=== PATIENT | male | born 1965 | race African-American/Black ===

== ENCOUNTER 2018-03-24 13:29 | Emergency (ER) | payer OTHER ==
[2018-03-24 14:10] LABS: Protime INR 1.07
[2018-03-24 14:12] LABS: Absolute Lymphocytes (CBC) 1.8 K/uL (0.7-4.9); Absolute Monocytes 0.6 K/uL (0.1-1.3); Absolute Neutrophil 2.4 K/uL (1.8-8.0); Basophils % 0.7 % (0-1.3); Eosinophils % 3.6 % (0-4.4); Hematocrit 44.8 % (39.6-49.0); Lymphocytes % 35.6 % (15.3-44.8); MCH 28.5 pg (27.0-35.0); MCV 86.9 fL (80-100); MPV 11.1 fL (7.6-11.3); Monocytes % 12.6 % (3.3-12.3); RBC Red Blood Cell Count 5.15 M/uL (4.33-5.43)
[2018-03-24 14:21] LABS: Potassium 3.9 mEq/L (3.6-5.0)
[2018-03-24 14:27] LABS: Albumin 4.1 g/dL (3.2-5.5); Bilirubin Direct 0.1 mg/dL (0-0.2); Bilirubin Total 0.8 mg/dL (0.3-1.2); Magnesium 2.3 mg/dL (1.8-2.5); Protein, Total 7.9 g/dL (6.0-8.3)
--- NOTE | 2018-03-24 14:41 | RAD REPORT ---
EXAM DESCRIPTION: RAD - Chest Single View - 03/24/2018 2:11 pm CLINICAL HISTORY: Chest pain COMPARISON: June 2015 TECHNIQUE: AP portable chest image was obtained 1359 hours . FINDINGS: Lungs are clear. Heart and vasculature are normal. No measurable pleural effusion and no p neumothorax. No gross bony abnormality seen. No acute aortic findings suspected. IMPRESSION: No acute cardiopulmonary process.
--- NOTE | 2018-03-24 15:17 | RAD REPORT ---
EXAM DESCRIPTION: CT - Chest For Pe Angio - 03/24/2018 3:00 pm CLINICAL HISTORY: Chest pain, pain between shoulder blades COMPARISON: Chest films same date TECHNIQUE: Dynamically enhanced 3 mm thick images of the chest were obtained during administration o f approximately 150mL Isovue 370 IV contrast. Coronal and oblique reconstruction images were generate d and reviewed. Exam utilizes a protocol to evaluate the pulmonary arterial tree. All CT scans are performed using dose optimization technique as appropriate and may include automated exposure control or mA/KV adjustment according to patient size. FINDINGS: No pulmonary emboli are identified. The aorta as imaged shows no acute or suspicious finding. No pericardial thickening or effusion. No infiltrate or mass in the lung parenchyma. No pleural effusion or pleural thickening. No mediastinal or hilar suspicious masses. No chest wall masses or abnormal axillary lymphadenopathy. IMPRESSION: No pulmonary emboli identified. No other significant or suspicious findings.
[2018-03-24] MEDS ORDERED: cloNIDine HCl 0.1 MG TAB ONE (15:38)
--- NOTE | 2018-03-24 17:21 | EDPHYS ---
Physician Documentation [facility] Name: Nick Castro Age: 52 yrs Sex: Male : 1965 Arrival Date: 03/24/2018 Time: 13:33 Bed 7 Private MD: ED Physician Rey Gonzales HPI: 03/24 14:05 This 52 yrs old Black Male presents to ER via Ambulatory with complaints of Chest Pain jr8 > 30 y/o, Back Pain. 14:05 The patient or guardian reports chest pain that is located primarily in the anterior jr8 chest wall, left. Onset: acutely, 5 day(s) ago. The pain radiates to left back. Associated signs and symptoms: The patient has no apparent associated signs or symptoms. The chest pain is described as sharp, stabbing. Duration: The patient or guardian reports multiple episodes. Modifying factors: The symptoms are alleviated by leaning forward. the symptoms are aggravated by breathing, laying back. 14:05 It is unknown whether or not the patient has had similar symptoms in the past. The jr8 patient has not recently seen a physician. History of PE in past. Stated that pain kind of feels like what he has had in the past with his pulmonary embolus . Historical: - Allergies: 13:37 No Known Allergies; aa5 - Home Meds: 14:18 amlodipine 10 mg tab 1 tab once daily [Active]; aspirin 81 mg Oral TbEC 1 tab once rv daily [Active]; cetirizine 10 mg oral tab 1 tab as needed for allergies [Active]; cholecalciferol (vitamin D3) 1,000 unit oral cap daily [Active]; citalopram 40 mg tab 1 tab once daily [Active]; clobetasol 0.05 % Topical crea [Active]; Combivent 18-103 mcg/actuation Inhl aero 2 puffs 4 times per day [Active]; cyclobenzaprine 10 mg Oral tab 1 tab 3 times per day [Active]; hydrocodone-acetaminophen 5-325 mg Oral tab 1 tab four times a day [Active]; omeprazole 20 mg Oral cpDR 1 cap 2 times per day [Active]; vardenafil oral oral .5 tab [Active]; hydrochlorothiazide Oral [Active]; niacin 500 mg Oral tab [Active]; potassium chloride 10 mEq Oral cpER 1 cap once daily [Active]; Xarelto 20 mg oral tab 1 tab once daily [Active]; - PMHx: 13:41 AAA; CHF; Diabetes - NIDDM; High Cholesterol; Hypertension; PE; PTSD; aa5 - PSHx: 13:41 Hernia repair; Foot surgery; R Radius repair x9; aa5 - Immunization history:: Adult Immunizations up to date. - Social history:: Smoking status: Patient/guardian denies using tobacco. ROS: 14:05 Eyes: Negative for injury, pain, redness, and discharge, ENT: Negative for injury, jr8 pain, and discharge, Neck: Negative for injury, pain, and swelling, Respiratory: Negative for shortness of breath, cough, wheezing, and pleuritic chest pain, Abdomen/GI: Negative for abdominal pain, nausea, vomiting, diarrhea, and constipation, Back: Negative for injury and pain, MS/Extremity: Negative for injury and deformity, Skin: Negative for injury, rash, and discoloration, Neuro: Negative for headache, weakness, numbness, tingling, and seizure. 14:05 Cardiovascular: Positive for chest pain, Negative for edema, orthopnea, palpitations, paroxysmal nocturnal dyspnea. Exam: 14:05 Eyes: Pupils equal round and reactive to light, extra-ocular motions intact. Lids and jr8 lashes normal. Conjunctiva and sclera are non-icteric and not injected. Cornea within normal limits. Periorbital areas with no swelling, redness, or edema. ENT: Nares patent. No nasal discharge, no septal abnormalities noted. Tympanic membranes are normal and external auditory canals are clear. Oropharynx with no redness, swelling, or masses, exudates, or evidence of obstruction, uvula midline. Mucous membranes moist. Neck: Trachea midline, no thyromegaly or masses palpated, and no cervical lymphadenopathy. Supple, full range of motion without nuchal rigidity, or vertebral point tenderness. No Meningismus. Chest/axilla: Normal chest wall appearance and motion. Nontender with no deformity. No lesions are appreciated. Cardiovascular: Regular rate and rhythm with a normal S1 and S2. No gallops, murmurs, or rubs. Normal PMI, no JVD. No pulse deficits. Respiratory: Lungs have equal breath sounds bilaterally, clear to auscultation and percussion. No rales, rhonchi or wheezes noted. No increased work of breathing, no retractions or nasal flaring. Abdomen/GI: Soft, non-tender, with normal bowel sounds. No distension or tympany. No guarding or rebound. No evidence of tenderness throughout. Back: No spinal tenderness. No costovertebral tenderness. Full range of motion. Skin: Warm, dry with normal turgor. Normal color with no rashes, no lesions, and no evidence of cellulitis. MS/ Extremity: Pulses equal, no cyanosis. Neurovascular intact. Full, normal range of motion. Neuro: Awake and alert, GCS 15, oriented to person, place, time, and situation. Cranial nerves II-XII grossly intact. Motor strength 5/5 in all extremities. Sensory grossly intact. Cerebellar exam normal. Normal gait. Vital Signs: 13:40 Weight 112.49 kg (R); Height 5 ft. 10 in. (177.80 cm) (R); Pain 9/10; aa5 13:51 BP 164 / 116; Pulse 81; Resp 12; Temp 98.4(O); Pulse Ox 97% on R/A; ae1 14:15 BP 167 / 122; Pulse 74; Resp 13; Pulse Ox 98% on R/A; ae1 15:23 BP 175 / 119; Pulse 70; Resp 15; Pulse Ox 96% on R/A; ae1 16:09 BP 168 / 124; Pulse 67; Resp 16; Pulse Ox 98% on R/A; ae1 16:24 BP 154 / 119; Pulse 75; Resp 16; Pulse Ox 95% on R/A; ae1 17:07 BP 142 / 108; Pulse 68; Resp 19 S; Pulse Ox 97% on R/A; ae1 13:40 Body Mass Index 35.58 (112.49 kg, 177.80 cm) aa5 MDM: 13:44 Patient medically screened. jr8 17:19 HEART Score: History: Slightly Suspicious (0), ECG: Normal (0), Age: > 45 and < 65 jr8 years (1), Risk Factors: > or = 3 Risk factors for atherosclerotic disease (2), [Hypercholesterolemia] [Hypertension] [DM] Troponin: < or = 1 x Normal Limit (0). The patient was not given aspirin in the Emergency Department. Patient reports taking aspirin within the past 24 hours. Data reviewed: vital signs, nurses notes, lab test result(s), EKG, radiologic studies, plain films, and as a result, I will discharge patient. Data interpreted: Pulse oximetry: on room air is 97 %. Interpretation: normal. 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 03/24 13:45 Order name: Basic Metabolic Panel; Complete Time: 14:03/24 13:45 Order name: BNP; Complete Time: 15:03/24 13:45 Order name: CBC with Diff; Complete Time: 14:03/24 13:45 Order name: LFT's; Complete Time: 14:03/24 13:45 Order name: Magnesium; Complete Time: 14:03/24 13:45 Order name: PT-INR; Complete Time: 14:03/24 13:45 Order name: Troponin (emerg Dept Use Only); Complete Time: 14:03/24 13:45 Order name: XRAY Chest (1 view); Complete Time: 14:42 03/24 13:45 Order name: EKG; Complete Time: 13:46 03/24 13:45 Order name: Cardiac monitoring; Complete Time: 15:03/24 13:59 Order name: ESR; Complete Time: 15:03/24 14:42 Order name: CT Chest For PE Angio; Complete Time: 15:03/24 15:30 Order name: Troponin (emerg Dept Use Only); Complete Time: 17:03/24 13:45 Order name: EKG - Nurse/Tech; Complete Time: 15:03/24 13:45 Order name: IV Saline Lock; Complete Time: 15:03/24 13:45 Order name: Labs collected and sent; Complete Time: 15:03/24 13:45 Order name: O2 Per Protocol; Complete Time: 15:03/24 13:45 Order name: O2 Sat Monitoring; Complete Time: 15:41 jr8 03/24 13:45 Order name: Urine Dipstick-Ancillary (obtain specimen) jr8 Administered Medications: 15:40 Drug: cloNIDine 0.2 mg Route: PO; rv 17:07 Follow up: Response: Blood pressure is lowered ae1 Disposition: 03/24/18 17:20 Discharged to Home. Impression: Chest pain on breathing. - Condition is Stable. - Discharge Instructions: Nonspecific Chest Pain. - Medication Reconciliation Form, Thank You Letter, Antibiotic Education, Prescription Opioid Use form. - Follow up: Private Physician; When: 2 - 3 days; Reason: Recheck today's complaints, Continuance of care, Re-evaluation by your physician. - Problem is new. - Symptoms have improved. Addendum: 03/29/2018 21:54 Co-signature as Attending Physician, Rey Gonzales MD. g s Signatures: Dispatcher [employer] EDMS Janette Smith RN RN aa5 Edu Renner PA PA jr8 Rainer Weeks RN RN ae1 Rey Gonzales MD MD Benjie Mustafa RN RN rv Corrections: (The following items were deleted from the chart) 03/24 17:40 17:20 03/24/2018 17:20 Discharged to Home. Impression: Chest pain on breathing. ae1 Condition is Stable. Forms are Medication Reconciliation Form, Thank You Letter, Antibiotic Education, Prescription Opioid Use. Follow up: Private Physician; When: 2 - 3 days; Reason: Recheck today's complaints, Continuance of care, Re-evaluation by your physician. Problem is new. Symptoms have improved. jr8
--- NOTE | 2018-03-24 17:21 | ER ---
Nurse's Notes [facility] Name: Nick Castro Age: 52 yrs Sex: Male : 1965 Arrival Date: 03/24/2018 Time: 13:33 Bed 7 Private MD: Diagnosis: Chest pain on breathing Presentation: 03/24 13:35 Presenting complaint: Patient states: left-sided chest pain and "pain between shoulder aa5 blades" that began Monday and has gotten worse the last 2-3 days. Pt states "It feels like when I had a PE". 13:35 Transition of care: patient was not received from another setting of care. Onset of aa5 symptoms was March 2018. Initial Sepsis Screen: Does the patient meet any 2 criteria? No. Patient's initial sepsis screen is negative. Does the patient have a suspected source of infection? No. Patient's initial sepsis screen is negative. Care prior to arrival: None. 13:35 Method Of Arrival: Ambulatory aa5 13:35 Acuity: PARMJIT 3 aa5 Triage Assessment: 17:39 General: Behavior is anxious. ae1 Historical: - Allergies: 13:37 No Known Allergies; aa5 - Home Meds: 14:18 amlodipine 10 mg tab 1 tab once daily [Active]; aspirin 81 mg Oral TbEC 1 tab once rv daily [Active]; cetirizine 10 mg oral tab 1 tab as needed for allergies [Active]; cholecalciferol (vitamin D3) 1,000 unit oral cap daily [Active]; citalopram 40 mg tab 1 tab once daily [Active]; clobetasol 0.05 % Topical crea [Active]; Combivent 18-103 mcg/actuation Inhl aero 2 puffs 4 times per day [Active]; cyclobenzaprine 10 mg Oral tab 1 tab 3 times per day [Active]; hydrocodone-acetaminophen 5-325 mg Oral tab 1 tab four times a day [Active]; omeprazole 20 mg Oral cpDR 1 cap 2 times per day [Active]; vardenafil oral oral .5 tab [Active]; hydrochlorothiazide Oral [Active]; niacin 500 mg Oral tab [Active]; potassium chloride 10 mEq Oral cpER 1 cap once daily [Active]; Xarelto 20 mg oral tab 1 tab once daily [Active]; - PMHx: 13:41 AAA; CHF; Diabetes - NIDDM; High Cholesterol; Hypertension; PE; PTSD; aa5 - PSHx: 13:41 Hernia repair; Foot surgery; R Radius repair x9; aa5 - Immunization history:: Adult Immunizations up to date. - Social history:: Smoking status: Patient/guardian denies using tobacco. Screenin:57 Abuse screen: Denies threats or abuse. Nutritional screening: No deficits noted. ae1 Tuberculosis screening: No symptoms or risk factors identified. Fall Risk None identified. Assessment: 13:58 General: Appears comfortable. Pain: Complains of pain in chest Pain radiates to back rv Pain began a week ago, on and off. Cardiovascular: Heart tones present. 15:24 Reassessment: Patient appears in no apparent distress at this time. Patient and/or ae1 family updated on plan of care and expected duration. Pain level reassessed. 16:25 Reassessment: Patient appears in no apparent distress at this time. Patient and/or ae1 family updated on plan of care and expected duration. Pain level reassessed. Vital Signs: 13:40 Weight 112.49 kg (R); Height 5 ft. 10 in. (177.80 cm) (R); Pain 9/10; aa5 13:51 BP 164 / 116; Pulse 81; Resp 12; Temp 98.4(O); Pulse Ox 97% on R/A; ae1 14:15 BP 167 / 122; Pulse 74; Resp 13; Pulse Ox 98% on R/A; ae1 15:23 BP 175 / 119; Pulse 70; Resp 15; Pulse Ox 96% on R/A; ae1 16:09 BP 168 / 124; Pulse 67; Resp 16; Pulse Ox 98% on R/A; ae1 16:24 BP 154 / 119; Pulse 75; Resp 16; Pulse Ox 95% on R/A; ae1 17:07 BP 142 / 108; Pulse 68; Resp 19 S; Pulse Ox 97% on R/A; ae1 13:40 Body Mass Index 35.58 (112.49 kg, 177.80 cm) aa5 ED Course: 13:30 Patient maintains SpO2 saturation greater than 95% on room air. ae1 13:33 Patient arrived in ED. sb2 13:37 Arm band placed on Patient placed in an exam room, on a stretcher. aa5 13:40 Triage completed. aa5 13:42 Rainer Weeks, RN is Primary Nurse. ae1 13:44 Edu Renner PA is PHCP. jr8 13:44 Rey Gonzales MD is Attending Physician. jr8 13:45 Placed in gown. Bed in low position. Call light in reach. Side rails up X 1. Cardiac ae1 monitor on. Pulse ox on. NIBP on. 13:57 Inserted saline lock: 20 gauge in right antecubital area, using aseptic technique. rv 14:09 X-ray completed. Portable x-ray completed in exam room. Patient tolerated procedure bb2 well. 14:10 XRAY Chest (1 view) In Process Unspecified. EDMS 14:59 CT Chest For PE Angio In Process Unspecified. EDMS 17:39 No provider procedures requiring assistance completed. IV discontinued, intact, ae1 bleeding controlled, No redness/swelling at site. Pressure dressing applied. Administered Medications: 15:40 Drug: cloNIDine 0.2 mg Route: PO; rv 17:07 Follow up: Response: Blood pressure is lowered ae1 Outcome: 17:20 Discharge ordered by . jr8 17:39 Discharged to home ambulatory. ae1 17:39 Condition: stable 17:39 Discharge instructions given to patient, Instructed on discharge instructions, follow up and referral plans. Demonstrated understanding of instructions. 17:40 Patient left the ED. ae1 Signatures: Dispatcher [employer] EDPA Janette Smith, RN RN aa5 Edu Renner PA PA jr8 Rainer Weeks, AJ RN ae1 Tara Farah bb2 Madison Hernandez 2 Benjie Mustafa RN RN rv Corrections: (The following items were deleted from the chart) 15:38 13:51 BP 164 / 116; Pulse 81bpm; Resp 12bpm; Pulse Ox 97% RA; ae1 ae1
[2018-03-24 17:49] VITALS: TEMP 98.4
[2018-03-24 17:55] VITALS: BP 142/108; O2SAT 97
--- NOTE | 2018-03-25 10:42 | EKG ---
Test Date: 2018-03-24 Test Time: 13:39:49 Logging Supervisor: NANCY MEASUREMENT RESULTS: Intervals: Rate: 75 CO: 150 QRSD: 74 QT: 344 QTc: 384 [place]: P: 68 CO: 150 QRS: 67 T: 47 INTERPRETIVE STATEMENTS: Sinus rhythm Nonspecific ST and T wave abnormality Abnormal ECG Compared to ECG 03/26/2016 23:20:09 ST (T wave) deviation still present Electronically Signed On 03-25-18 10:41:35 CDT by Donte Miller
== END 2018-03-24 17:40 | disposition home or self-care (01) ==
LOC: ER 13:29
DX: R07.1 Chest pain on breathing (principal); I10 Essential (primary) hypertension; E11.9 Type 2 diabetes mellitus without complications; I50.9 Heart failure, unspecified; Z79.82 Long term (current) use of aspirin
CPT/HCPCS: 36415; 71045; 71275; 80048; 80076; 83735; 83880; 84484; 85025; 85610; 85652; 93005; 99285; Q9967

== ENCOUNTER 2018-09-05 17:55 | Emergency (ER) | payer OTHER ==
--- NOTE | 2018-09-05 19:08 | RAD REPORT ---
EXAM DESCRIPTION: CT - C Spine Wo Con - 09/05/2018 6:52 pm CLINICAL HISTORY: Right arm numbness COMPARISON: 2013 TECHNIQUE: Computed axial tomography of the cervical spine were obtained with sagittal and coronal r econstruction images generated and reviewed. All CT scans are performed using dose optimization technique as appropriate and may include automated exposure control or mA/KV adjustment according to patient size. FINDINGS: A cervical fracture is not seen. No dislocation is noted C2-3 is unremarkable Small disc bulge and osteophytes are seen C3-4 resulting in mild narrowing of the left neural foramin a C4-5 disc is thinned. Disc bulge and osteophytes are present. Mild narrowing of the thecal sac is see n. Mild narrowing of the right and mild to moderate narrowing left neural foramina is noted. C5-6 disc is thinned. Disc bulge and osteophytes are present. Moderate narrowing of the left and mild narrowing the right neural foramina is seen. Disc bulge is seen at C6-7 mildly encroach upon the thecal sac. C7-T1 appears unremarkable IMPRESSION: A cervical fracture is not seen. Spondylosis as described above. Moderate left foraminal stenosis C5-6 is seen If the patient continues have symptoms to suggest spinal cord/spinal canal pathology then MRI would b e recommended.
--- NOTE | 2018-09-05 19:11 | RAD REPORT ---
EXAM DESCRIPTION: RAD - Shoulder Right 2 View - 09/05/2018 7:01 pm CLINICAL HISTORY: Right arm numbness FINDINGS: No fracture or dislocation is seen. No bone or joint abnormality is seen
--- NOTE | 2018-09-05 19:34 | ER ---
Nurse's Notes [facility] Name: Nick Castro Age: 52 yrs Sex: Male : 1965 Arrival Date: 09/05/2018 Time: 17:[address] Private MD: None, None Diagnosis: Acute Cervical Spondylosis;Acute Cervical Radiculopathy (right) Presentation: 09/05 17:59 Presenting complaint: Patient states: right arm numbness and pain x 1 week. Denies sv injury or lifting anything heavy. Transition of care: patient was not received from another setting of care. Onset of symptoms was August 29, 2018. Care prior to arrival: None. 17:59 Method Of Arrival: Ambulatory sv 17:59 Acuity: PARMJIT 3 sv 18:22 Risk Assessment: Do you want to hurt yourself or someone else? Patient reports no la1 desire to harm self or others. Initial Sepsis Screen: Does the patient meet any 2 criteria? No. Patient's initial sepsis screen is negative. Does the patient have a suspected source of infection? No. Patient's initial sepsis screen is negative. Triage Assessment: 18:12 General: Appears in no apparent distress. uncomfortable, Behavior is calm, cooperative, sv appropriate for age. Pain: Complains of pain in right arm Pain currently is 10 out of 10 on a pain scale. Neuro: Level of Consciousness is awake, alert, obeys commands, Oriented to person, place, time, situation, Moves all extremities. Full function Gait is steady, Speech is normal, Facial symmetry appears normal. Respiratory: Respiratory effort is even, unlabored, Respiratory pattern is regular, symmetrical. Historical: - Allergies: 18:12 No Known Allergies; sv - Home Meds: 18:12 Coumadin 10 mg Oral tab [Active]; potassium chloride 10 mEq Oral TbER 1 cap once daily sv [Active]; niacin 500 mg Oral tab [Active]; hydrochlorothiazide/lisinopril [Active]; amlodipine 10 mg tab 1 tab once daily [Active]; aspirin 81 mg Oral TbEC 1 tab once daily [Active]; cetirizine 10 mg Oral tab 1 tab as needed for allergies [Active]; cholecalciferol (vitamin D3) 1,000 unit Oral cap daily [Active]; citalopram 40 mg tab 1 tab once daily [Active]; clobetasol 0.05 % Topical crea [Active]; Combivent 18-103 mcg/actuation Inhl aero 2 puffs 4 times per day [Active]; cyclobenzaprine 10 mg Oral tab 1 tab 3 times per day [Active]; Flexeril Oral [Active]; fluticasone nasal nasal [Active]; hydrocodone-acetaminophen 5-325 mg Oral tab 1 tab four times a day [Active]; omeprazole 20 mg Oral cpDR 1 cap 2 times per day [Active]; rosuvastatin oral oral [Active]; varden [Active]; - PMHx: 18:12 AAA; CHF; Diabetes - NIDDM; High Cholesterol; Hypertension; PE; PTSD; Depression; sv - PSHx: 18:12 Hernia repair; Right Foot surgery; R Radius repair x9; lipoma removed from rib cage; sv abd mesh implant; - Immunization history:: Flu vaccine is not up to date. - Social history:: Smoking status: Patient/guardian denies using tobacco, Patient/guardian denies using alcohol. - Ebola Screening: : No symptoms or risks identified at this time. - Family history:: not pertinent. - Hospitalizations: : No recent hospitalization is reported. Screenin:22 Abuse screen: Denies threats or abuse. Nutritional screening: No deficits noted. la1 Tuberculosis screening: No symptoms or risk factors identified. Fall Risk None identified. Assessment: 18:21 General: Appears in no apparent distress. Behavior is calm, cooperative. Pain: la1 Complains of pain in right arm. Neuro: Level of Consciousness is awake, alert, obeys commands. Neuro: Buttonhole Facer are equal bilaterally Moves all extremities. Full function Gait is steady, Speech is normal, Facial symmetry appears normal, Pupils are PERRLA. Cardiovascular: Capillary refill < 3 seconds Patient's skin is warm and dry. Respiratory: Airway is patent Respiratory effort is even, unlabored, Respiratory pattern is regular, symmetrical, Breath sounds are clear bilaterally. GI: No signs and/or symptoms were reported involving the gastrointestinal system. : No signs and/or symptoms were reported regarding the genitourinary system. Musculoskeletal: Circulation, motion, and sensation intact. Capillary refill < 3 seconds, Range of motion: intact in all extremities, Reports numbness in right arm. 19:20 Reassessment: Patient appears in no apparent distress at this time. Patient and/or cc3 family updated on plan of care and expected duration. Pain level reassessed. Patient is alert, oriented x 3, equal unlabored respirations, skin warm/dry/pink. Received this male patient from morning shift AJ Garcia as a case of right arm numbness. Patient just came back from CT scan department, no IV cannula in situ. 19:55 Reassessment: Patient appears in no apparent distress at this time. Patient and/or cc3 family updated on plan of care and expected duration. Pain level reassessed. Patient is alert, oriented x 3, equal unlabored respirations, skin warm/dry/pink. Dr. Roman discharged home the patient with prescription given. Right arm sling applied as ordered. No IV cannula in situ. Patient left ER vitally stable and ambulatory. Vital Signs: 18:13 BP 156 / 114; Pulse 75; Resp 20; Temp 97.6; Pulse Ox 97% ; Weight 104.33 kg; Height 5 sv ft. 10 in. (177.80 cm); Pain 10/10; 19:20 BP 150 / 87; Pulse 74; Resp 19 S; Temp 97.9(O); Pulse Ox 97% on R/A; cc3 18:13 Body Mass Index 33.00 (104.33 kg, 177.80 cm) sv ED Course: 17:59 Patient arrived in ED. mr 17:59 None, None is Private Physician. mr 17:59 Arm band placed on Patient placed in an exam room, on a stretcher, on pulse oximetry. sv 18:08 Triage completed. sv 18:20 Jose Padilla RN is Primary Nurse. la1 18:22 Placed in gown. Bed in low position. Call light in reach. la1 18:27 Eb Roman MD is Attending Physician. wa 18:27 EKG done, by ED staff, reviewed by Eb Roman MD. mh5 18:45 Diet: Patient given a regular meal tray. mh5 18:45 monitoring engineer on. Pulse ox on. NIBP on. mh5 18:53 CT C Spine In Process Unspecified. EDMS 18:58 X-ray completed. Patient tolerated procedure well. Patient moved back from radiology. ls3 19:00 Shoulder Right (2 View) XRAY In Process Unspecified. EDMS 19:31 Robby Ren MD is Referral Physician. wa 19:55 No provider procedures requiring assistance completed. Patient did not have IV access cc3 during this emergency room visit. Administered Medications: No medications were administered Point of Care Testing: Blood Glucose: 18:45 Blood Glucose: 75 mg/dL; mh5 Ranges: Outcome: 19:33 Discharge ordered by . wa 19:55 Discharged to home ambulatory. cc3 19:55 Condition: stable 19:55 Discharge instructions given to patient, Instructed on discharge instructions, follow up and referral plans. medication usage, Demonstrated understanding of instructions, follow-up care, medications, Prescriptions given X 2. 19:57 Patient left the ED. cc3 Signatures: Dispatcher [employer] EDMS Ammy Vogel RN RN sv Rivera, Mary mr Attema, AJ Garcia RN Edelmira Schmitt 5 Eb Roman MD MD wa Cordel, Charlene cc3 Clemencia Lovell 3
--- NOTE | 2018-09-05 19:34 | EDPHYS ---
Physician Documentation [facility] Name: Nick Castro Age: 52 yrs Sex: Male : 1965 Arrival Date: 09/05/2018 Time: 17:[address] Private MD: None, None ED Physician Eb Roman HPI: 09/05 19:45 This 52 yrs old Black Male presents to ER via Ambulatory with complaints of Numbness Of wa Arm. 19:45 The patient or guardian complains of c/o numbness and pain in Right arm. worse when he wa extends his neck. denies dizziness, chest pain or SOB. Began while standing in line at a [employer] shop. denies h/o same in the past. denies recent injury. The complaints affect the right arm. Context: The problem was sustained at a while in line at a store, resulted from unknown cause. Onset: The symptoms/episode began/occurred today. Treatment prior to arrival includes: no previous treatment. Modifying factors: The symptoms are alleviated by remaining still, the symptoms are aggravated by moving neck. Associated signs and symptoms: The patient has no apparent associated signs or symptoms. Severity of symptoms: At their worst the symptoms were moderate, in the emergency department the symptoms are unchanged. The patient has not experienced similar symptoms in the past. The patient has not recently seen a physician. Historical: - Allergies: 18:12 No Known Allergies; sv - Home Meds: 18:12 Coumadin 10 mg Oral tab [Active]; potassium chloride 10 mEq Oral TbER 1 cap once daily sv [Active]; niacin 500 mg Oral tab [Active]; hydrochlorothiazide/lisinopril [Active]; amlodipine 10 mg tab 1 tab once daily [Active]; aspirin 81 mg Oral TbEC 1 tab once daily [Active]; cetirizine 10 mg Oral tab 1 tab as needed for allergies [Active]; cholecalciferol (vitamin D3) 1,000 unit Oral cap daily [Active]; citalopram 40 mg tab 1 tab once daily [Active]; clobetasol 0.05 % Topical crea [Active]; Combivent 18-103 mcg/actuation Inhl aero 2 puffs 4 times per day [Active]; cyclobenzaprine 10 mg Oral tab 1 tab 3 times per day [Active]; Flexeril Oral [Active]; fluticasone nasal nasal [Active]; hydrocodone-acetaminophen 5-325 mg Oral tab 1 tab four times a day [Active]; omeprazole 20 mg Oral cpDR 1 cap 2 times per day [Active]; rosuvastatin oral oral [Active]; varden [Active]; - PMHx: 18:12 AAA; CHF; Diabetes - NIDDM; High Cholesterol; Hypertension; PE; PTSD; Depression; sv - PSHx: 18:12 Hernia repair; Right Foot surgery; R Radius repair x9; lipoma removed from rib cage; sv abd mesh implant; - Immunization history:: Flu vaccine is not up to date. - Social history:: Smoking status: Patient/guardian denies using tobacco, Patient/guardian denies using alcohol. - Ebola Screening: : No symptoms or risks identified at this time. - Family history:: not pertinent. - Hospitalizations: : No recent hospitalization is reported. ROS: 19:49 Constitutional: Negative for fever, chills, and weight loss, Eyes: Negative for injury, wa pain, redness, and discharge, ENT: Negative for injury, pain, and discharge, Cardiovascular: Negative for chest pain, palpitations, and edema, Respiratory: Negative for shortness of breath, cough, wheezing, and pleuritic chest pain, Abdomen/GI: Negative for abdominal pain, nausea, vomiting, diarrhea, and constipation, Back: Negative for injury and pain, : Negative for injury, bleeding, discharge, and swelling, MS/Extremity: Negative for injury and deformity, Skin: Negative for injury, rash, and discoloration, Psych: Negative for depression, anxiety, suicide ideation, homicidal ideation, and hallucinations. 19:49 Neck: Positive for pain with movement. 19:49 Neuro: Positive for numbness, tingling, of the right arm. 19:49 All other systems are negative. Exam: 19:50 Constitutional: This is a well developed, well nourished patient who is awake, alert, wa and in no acute distress. Head/Face: Normocephalic, atraumatic. Eyes: Pupils equal round and reactive to light, extra-ocular motions intact. Lids and lashes normal. Conjunctiva and sclera are non-icteric and not injected. Cornea within normal limits. Periorbital areas with no swelling, redness, or edema. ENT: Nares patent. No nasal discharge, no septal abnormalities noted. Tympanic membranes are normal and external auditory canals are clear. Oropharynx with no redness, swelling, or masses, exudates, or evidence of obstruction, uvula midline. Mucous membranes moist. Neck: Trachea midline, no thyromegaly or masses palpated, and no cervical lymphadenopathy. Supple, full range of motion without nuchal rigidity, or vertebral point tenderness. No Meningismus. Chest/axilla: Normal chest wall appearance and motion. Nontender with no deformity. No lesions are appreciated. Cardiovascular: Regular rate and rhythm with a normal S1 and S2. No gallops, murmurs, or rubs. Normal PMI, no JVD. No pulse deficits. Respiratory: Lungs have equal breath sounds bilaterally, clear to auscultation and percussion. No rales, rhonchi or wheezes noted. No increased work of breathing, no retractions or nasal flaring. Abdomen/GI: Soft, non-tender, with normal bowel sounds. No distension or tympany. No guarding or rebound. No evidence of tenderness throughout. Male : Normal genitalia with no discharge or lesions. Skin: Warm, dry with normal turgor. Normal color with no rashes, no lesions, and no evidence of cellulitis. MS/ Extremity: Pulses equal, no cyanosis. Neurovascular intact. Full, normal range of motion. Neuro: Awake and alert, GCS 15, oriented to person, place, time, and situation. Cranial nerves II-XII grossly intact. Motor strength 5/5 in all extremities. Sensory grossly intact. Cerebellar exam normal. Normal gait. Psych: Awake, alert, with orientation to person, place and time. Behavior, mood, and affect are within normal limits. 19:50 Back: mild tender over R scapular distribution. . Vital Signs: 18:13 BP 156 / 114; Pulse 75; Resp 20; Temp 97.6; Pulse Ox 97% ; Weight 104.33 kg; Height 5 sv ft. 10 in. (177.80 cm); Pain 10/10; 19:20 BP 150 / 87; Pulse 74; Resp 19 S; Temp 97.9(O); Pulse Ox 97% on R/A; cc3 18:13 Body Mass Index 33.00 (104.33 kg, 177.80 cm) sv MDM: 18:27 Patient medically screened. ok 19:51 Differential diagnosis: consider spinal stenosis with impingement ans assoc wa radiculopathy. will CT. Data reviewed: vital signs, nurses notes. Test interpretation: by ED physician or midlevel provider: nml R shoulder X-ray. CT c-spine: spondylosis. C5-C6. Moderate foraminal stenosis. Disc bulge at C6-C7. mild encroachment of the thecal sac. 09/05 18:39 Order name: CT C Spine; Complete Time: 19:15 ok 09/05 18:39 Order name: Shoulder Right (2 View) XRAY; Complete Time: 19:15 ok 09/05 18:39 Order name: Accucheck Blood Glucose; Complete Time: 18:53 ok 09/05 19:36 Order name: Sling; Complete Time: 19:56 wa Administered Medications: No medications were administered Point of Care Testing: Blood Glucose: 18:45 Blood Glucose: 75 mg/dL; mh5 Ranges: Critical Glucose Levels:Adult <50 mg/dl or >400 mg/dl <40 mg/dl or >180 mg/dl Disposition: 09/05/18 19:33 Discharged to Home. Impression: Acute Cervical Spondylosis, Acute Cervical Radiculopathy (right). - Condition is Stable. - Discharge Instructions: Cervical Radiculopathy, [id number]. - Prescriptions for Valium 5 mg Oral Tablet - take 1 tablet by ORAL route At bedtime As needed; 6 tablet. Prednisone 20 mg Oral Tablet - take 2 tablet by ORAL route once daily for 5 days; 10 tablet. - Medication Reconciliation Form, Thank You Letter, Antibiotic Education, Prescription Opioid Use form. - Follow up: Robby Ren MD; When: 2 - 3 days; Reason: Recheck today's complaints. - Problem is new. - Symptoms have improved. - Notes: follow up with the neurologist. you may need an MRI of your neck to make sure you do not have an impingement on the nerve in your neck. Signatures: Dispatcher [employer] Ammy Villegas, AJ RN Eb Roman MD MD wa Cordel, Charlene cc3 Corrections: (The following items were deleted from the chart) 19:57 19:33 09/05/2018 19:33 Discharged to Home. Impression: Acute Cervical Spondylosis; cc3 Acute Cervical Radiculopathy (right). Condition is Stable. Forms are Medication Reconciliation Form, Thank You Letter, Antibiotic Education, Prescription Opioid Use. Follow up: Robby Ren; When: 2 - 3 days; Reason: Recheck today's complaints. Problem is new. Symptoms have improved. wa
[2018-09-05 20:02] VITALS: BP 156/114; TEMP 97.6; O2SAT 97
--- NOTE | 2018-09-06 22:12 | EKG ---
Test Date: 2018-09-05 Test Time: 18:20:46 2[address] [place]: GASPER MEASUREMENT RESULTS: Intervals: Rate: 68 MO: 174 QRSD: 80 QT: 370 QTc: 393 [place]: P: 46 MO: 174 QRS: 46 T: 41 INTERPRETIVE STATEMENTS: Normal sinus rhythm Nonspecific ST and T wave abnormality Abnormal ECG Compared to ECG 03/24/2018 13:39:49 No significant changes Electronically Signed On 09-06-18 22:11:35 CDT by Donte Miller
== END 2018-09-05 19:57 | disposition home or self-care (01) ==
LOC: ER 17:55
DX: M47.22 Other spondylosis with radiculopathy, cervical region (principal); E11.9 Type 2 diabetes mellitus without complications; I10 Essential (primary) hypertension; E78.00 Pure hypercholesterolemia, unspecified; F41.8 Other specified anxiety disorders; I50.9 Heart failure, unspecified; F43.10 Post-traumatic stress disorder, unspecified
CPT/HCPCS: 72125; 82962; 93005; 99284

== ENCOUNTER 2019-04-01 20:15 | Emergency (ER) | payer OTHER ==
[2019-04-01] MEDS ORDERED: BUPIVACAINE 0.5% PF 10 ML VIAL ONE (20:53)
[2019-04-01] MEDS ORDERED: LIDOCAINE 1% 20 ML MDV ONE (20:53)
[2019-04-01] MEDS ORDERED: TETANUS & DIPHTHERIA TOX,ADULT 0.5 ML VIAL ONE (21:28)
--- NOTE | 2019-04-01 21:35 | ER ---
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 Transition of care: patient was not received from another setting of care. Onset of symptoms was April 01, 2019. Risk Assessment: Do you want to hurt yourself or someone else? Patient reports no desire to harm self or others. Initial Sepsis Screen: Does the patient meet any 2 criteria? No. Patient's initial sepsis screen is negative. Does the patient have a suspected source of infection? No. Patient's initial sepsis screen is negative. Care prior to arrival: None. 20:23 Method Of Arrival: Ambulatory aa1 20:23 Acuity: PARMJIT 4 aa1 Triage Assessment: 20:28 General: Appears in no apparent distress. comfortable, Behavior is calm, cooperative, aa1 appropriate for age. Historical: - Allergies: 20:28 No Known Allergies; aa1 - Home Meds: 20:28 amlodipine 10 mg tab 1 tab once daily [Active]; aspirin 81 mg Oral TbEC 1 tab once aa1 daily [Active]; atorvastatin Oral [Active]; Bupropion Oral [Active]; cetirizine 10 mg Oral tab 1 tab as needed for allergies [Active]; cholecalciferol (vitamin D3) 1,000 unit Oral cap daily [Active]; citalopram 40 mg tab 1 tab once daily [Active]; clobetasol 0.05 % Topical crea [Active]; Combivent 18-103 mcg/actuation Inhl aero 2 puffs 4 times per day [Active]; Coumadin 10 mg Oral tab [Active]; cyclobenzaprine 10 mg Oral tab 1 tab 3 times per day [Active]; Flexeril Oral [Active]; fluticasone nasal [Active]; Furosemide Oral [Active]; gabapentin Oral [Active]; hydrochlorothiazide/lisinopril [Active]; hydrocodone-acetaminophen 5-325 mg Oral tab 1 tab four times a day [Active]; lisinopril Oral [Active]; niacin 500 mg Oral tab [Active]; omeprazole 20 mg Oral cpDR 1 cap 2 times per day [Active]; potassium chloride 10 mEq Oral TbER 1 cap once daily [Active]; Prazosin Oral [Active]; rosuvastatin Oral [Active]; tizanidine Oral [Active]; Trazodone Oral [Active]; vardenafil Oral 0.5 tab [Active]; Xarelto 20 mg Oral tab 1 tab once daily [Active]; varden [Active]; - PMHx: 20:28 AAA; CHF; Depression; Diabetes - NIDDM; High Cholesterol; Hypertension; PE; PTSD; aa1 - PSHx: 20:28 Hernia repair; Right Foot surgery; R Radius repair x9; lipoma removed from rib cage; aa1 abd mesh implant; - Immunization history:: Last tetanus immunization: < 5 years ago. - Social history:: Smoking status: Patient/guardian denies using tobacco. - Ebola Screening: : No symptoms or risks identified at this time. Screenin:36 Abuse screen: Denies threats or abuse. Nutritional screening: No deficits noted. jb4 Tuberculosis screening: No symptoms or risk factors identified. Fall Risk None identified. Assessment: 20:36 General: Appears in no apparent distress. uncomfortable, Behavior is calm, cooperative, jb4 appropriate for age. Pain: Complains of pain in palmar aspect of distal phalanx of right middle finger Pain does not radiate. Pain currently is 10 out of 10 on a pain scale. Quality of pain is described as throbbing. Neuro: Level of Consciousness is awake, alert, obeys commands, Oriented to person, place, time, situation. Cardiovascular: Patient's skin is warm and dry. Respiratory: Airway is patent Respiratory effort is even, unlabored, Respiratory pattern is regular, symmetrical. GI: No signs and/or symptoms were reported involving the gastrointestinal system. : No signs and/or symptoms were reported regarding the genitourinary system. EENT: No signs and/or symptoms were reported regarding the EENT system. Derm: Skin is intact, Skin is dry, Skin is normal, Skin temperature is warm. Musculoskeletal: Circulation, motion, and sensation intact. 22:06 Reassessment: Patient appears in no apparent distress at this time. Patient and/or jb4 family updated on plan of care and expected duration. Pain level reassessed. Patient is alert, oriented x 3, equal unlabored respirations, skin warm/dry/pink. Patient states feeling better. Vital Signs: 20:29 BP 193 / 112; Pulse 86; Resp 18; Temp 97.6; Pulse Ox 98% on R/A; Weight 111.13 kg (R); aa1 Height 5 ft. 11 in. (180.34 cm) (R); Pain 10/10; 21:31 BP 163 / 109; Pulse 85; Resp 16; Pulse Ox 97% on R/A; jb4 21:49 Temp 98.0(O); lt1 20:29 Body Mass Index 34.17 (111.13 kg, 180.34 cm) aa1 ED Course: 20:18 Patient arrived in ED. do 20:23 Triage completed. aa1 20:29 Arm band placed on left wrist. Patient placed in an exam room, on a stretcher. aa1 20:30 Mike Gonzalez PA is PHCP. cp 20:30 Rey Gonzales MD is Attending Physician. cp 20:33 Bora Barrow, AJ is Primary Nurse. jb4 20:36 Patient has correct armband on for positive identification. Bed in low position. Call jb4 light in reach. Side rails up X 1. Pulse ox on. NIBP on. 21:30 Assist provider with foreign body removal of a fish hook from right middle finger using jb4 tweezers, Performed by Mike REDDY. 21:31 XRAY Hand RIGHT 3 View In Process Unspecified. EDMS 22:07 Patient did not have IV access during this emergency room visit. 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 Exp: jb4 01/03/2021. Lot #: [id number]. } Route: IM; Site: left deltoid; 21:31 Drug: Doxycycline 100 mg Route: PO; jb4 Outcome: 21:35 Discharge ordered by . isatu 22:07 Discharged to home ambulatory, via ambulance. jb4 22:07 Condition: stable 22:07 Discharge instructions given to patient, Instructed on discharge instructions, follow up and referral plans. medication usage, Demonstrated understanding of instructions, follow-up care, medications, Prescriptions given X 2. 22:08 Patient left the ED. jb4 Signatures: Dispatcher [employer] EDMS Radha Ya, RN RN aa1 Mike Gonzalez PA PA cp Ogletree, Danielle do Bryson, James RN RN jb4 Hailey Ellis [facility]
--- NOTE | 2019-04-01 21:35 | EDPHYS ---
Physician Documentation [facility] Name: Nick Castro Age: 53 yrs Sex: Male : 1965 Arrival Date: 04/01/2019 Time: 20:18 Bed 13 Private MD: ED Physician Rey Gonzales HPI: 04/01 20:45 This 53 yrs old Black Male presents to ER via Ambulatory with complaints of Fish Hook cp in Hand. 20:45 The patient or guardian reports a puncture wound, embedded fish hook. cp 20:45 The complaints affect the palmar aspect of distal phalanx of right middle finger. cp Context: resulted from fishing in [place]. Onset: The symptoms/episode began/occurred just prior to arrival. Associated signs and symptoms: Pertinent negatives: cyanosis distally, numbness distally. Historical: - Allergies: 20:28 No Known Allergies; aa1 - Home Meds: 20:28 amlodipine 10 mg tab 1 tab once daily [Active]; aspirin 81 mg Oral TbEC 1 tab once aa1 daily [Active]; atorvastatin Oral [Active]; Bupropion Oral [Active]; cetirizine 10 mg Oral tab 1 tab as needed for allergies [Active]; cholecalciferol (vitamin D3) 1,000 unit Oral cap daily [Active]; citalopram 40 mg tab 1 tab once daily [Active]; clobetasol 0.05 % Topical crea [Active]; Combivent 18-103 mcg/actuation Inhl aero 2 puffs 4 times per day [Active]; Coumadin 10 mg Oral tab [Active]; cyclobenzaprine 10 mg Oral tab 1 tab 3 times per day [Active]; Flexeril Oral [Active]; fluticasone nasal [Active]; Furosemide Oral [Active]; gabapentin Oral [Active]; hydrochlorothiazide/lisinopril [Active]; hydrocodone-acetaminophen 5-325 mg Oral tab 1 tab four times a day [Active]; lisinopril Oral [Active]; niacin 500 mg Oral tab [Active]; omeprazole 20 mg Oral cpDR 1 cap 2 times per day [Active]; potassium chloride 10 mEq Oral TbER 1 cap once daily [Active]; Prazosin Oral [Active]; rosuvastatin Oral [Active]; tizanidine Oral [Active]; Trazodone Oral [Active]; vardenafil Oral 0.5 tab [Active]; Xarelto 20 mg Oral tab 1 tab once daily [Active]; varden [Active]; - PMHx: 20:28 AAA; CHF; Depression; Diabetes - NIDDM; High Cholesterol; Hypertension; PE; PTSD; aa1 - PSHx: 20:28 Hernia repair; Right Foot surgery; R Radius repair x9; lipoma removed from rib cage; aa1 abd mesh implant; - Immunization history:: Last tetanus immunization: < 5 years ago. - Social history:: Smoking status: Patient/guardian denies using tobacco. - Ebola Screening: : No symptoms or risks identified at this time. ROS: 21:00 Constitutional: Negative for body aches, chills, fever, poor PO intake. cp 21:00 Eyes: Negative for injury, pain, redness, and discharge. cp 21:00 Skin: Positive for puncture, of the palmar aspect of distal phalanx of right middle finger, embedded fish hook. 21:00 Neuro: Negative for numbness. 21:00 All other systems are negative. Exam: 21:05 Constitutional: The patient appears in no acute distress, alert, awake, non-toxic, well cp developed, well nourished. 21:05 Head/Face: Normocephalic, atraumatic. cp 21:05 Eyes: Periorbital structures: appear normal, Conjunctiva: normal, Lids and lashes: appear normal, bilaterally. 21:05 Cardiovascular: Rate: normal. 21:05 Respiratory: the patient does not display signs of respiratory distress, Respirations: normal, no use of accessory muscles, no retractions, no splinting, no tachypnea. 21:05 Musculoskeletal/extremity: Extremities: grossly normal except: noted in the palmar aspect of distal phalanx of right middle finger: embedded fish hook, ROM: full active range of motion, in the right middle finger, Perfusion: the extremity is normally perfused throughout, Sensation intact. Tendon exam: specific tendon testing normal through active and passive range of motion 21:05 Skin: injury, puncture(s), that are deep, of the palmar aspect of distal phalanx of right middle finger. Vital Signs: 20:29 BP 193 / 112; Pulse 86; Resp 18; Temp 97.6; Pulse Ox 98% on R/A; Weight 111.13 kg (R); aa1 Height 5 ft. 11 in. (180.34 cm) (R); Pain 10/10; 21:31 BP 163 / 109; Pulse 85; Resp 16; Pulse Ox 97% on R/A; jb4 21:49 Temp 98.0(O); lt1 20:29 Body Mass Index 34.17 (111.13 kg, 180.34 cm) aa1 Procedures: 21:31 Foreign Body Removal: a fishhook, from the palmar aspect of distal phalanx of right cp middle finger, by manual. The patient tolerated the removal well, digital block performed with 9ccs of mixture 1% lidocaine w/o epi and 0.5% marcaine. MDM: 20:30 Patient medically screened. cp 21:00 Differential diagnosis: dislocation, open fracture. cp 21:33 Data reviewed: vital signs, nurses notes, radiologic studies, plain films, and as a cp result, I will discharge patient. Test interpretation: by ED physician or midlevel provider: xrays of right hand negative for fracture. 21:35 Counseling: I had a detailed discussion with the patient and/or guardian regarding: the cp historical points, exam findings, and any diagnostic results supporting the discharge/admit diagnosis, radiology results, to return to the emergency department if symptoms worsen or persist or if there are any questions or concerns that arise at home. 21:35 Response to treatment: the patient's symptoms have markedly improved after treatment, cp and as a result, I will discharge patient. Special discussion: I discussed in detail with the patient the higher chance of wound infection based on his presenting history. 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 Exp: jb4 01/03/2021. Lot #: [id number]. } Route: IM; Site: left deltoid; 21:31 Drug: Doxycycline 100 mg Route: PO; jb4 Disposition: 04/02 19:38 Co-signature as Attending Physician, Rey Gonzales MD. Disposition: 04/01/19 21:35 Discharged to Home. Impression: Puncture wound with foreign body of right middle finger without damage to nail, [place] removal. - Condition is Stable. - Discharge Instructions: Puncture Wound. - Prescriptions for Doxycycline Hyclate 100 mg Oral Tablet - take 1 tablet by ORAL route every 12 hours; 20 tablet. Tramadol 50 mg Oral Tablet - take 1 tablet by ORAL route every 8 hours as needed; 12 tablet. - Medication Reconciliation Form, Thank You Letter, Antibiotic Education, Prescription Opioid Use form. - Follow up: Private Physician; When: 48 Hours; Reason: Wound Recheck. - Problem is new. - Symptoms have improved. Signatures: Dispatcher [employer] EDMS Radha Ya RN RN aa1 Mike Gonzalez PA PA cp Bryson, James, RN RN jb4 Rey Gonzales MD MD Corrections: (The following items were deleted from the chart) 04/01 22:08 21:35 04/01/2019 21:35 Discharged to Home. Impression: Puncture wound with foreign body jb4 of right middle finger without damage to nail; [place] removal. Condition is Stable. Forms are Medication Reconciliation Form, Thank You Letter, Antibiotic Education, Prescription Opioid Use. Follow up: Private Physician; When: 48 Hours; Reason: Wound Recheck. Problem is new. Symptoms have improved. cp
[2019-04-01] MEDS ORDERED: DOXYCYCLINE 100 MG CAP PO ONE (21:40)
[2019-04-01 22:16] VITALS: BP 163/109; O2SAT 97
[2019-04-01 22:18] VITALS: TEMP 98
--- NOTE | 2019-04-02 08:18 | RAD REPORT ---
EXAM DESCRIPTION: RAD - Hand Right 3 View - 04/01/2019 9:30 pm CLINICAL HISTORY: Right hand pain, fish hook injury right third digit COMPARISON: None. FINDINGS: No fracture is identified. There is no dislocation or periosteal reaction noted. No forei gn body remnant of the fish hook. IMPRESSION: No foreign body in the soft tissues. No acute bone or joint finding.
== END 2019-04-01 22:08 | disposition home or self-care (01) ==
LOC: ER 20:15
DX: S61.242A Puncture wound with foreign body of right middle finger without damage to nail, initial encounter (principal); I10 Essential (primary) hypertension; E78.00 Pure hypercholesterolemia, unspecified; E11.9 Type 2 diabetes mellitus without complications; I50.9 Heart failure, unspecified; F32.9 Major depressive disorder, single episode, unspecified; F43.10 Post-traumatic stress disorder, unspecified; Z23 Encounter for immunization; Z79.01 Long term (current) use of anticoagulants; Z79.82 Long term (current) use of aspirin
CPT/HCPCS: 90471; 90714; 99284

== ENCOUNTER 2019-09-30 09:24 | Observation (INO) | payer OTHER ==
[2019-09-30 10:06] LABS: Absolute Lymphocytes (CBC) 1.5 K/uL (0.7-4.9); Basophils % 0.6 % (0-1.3); Hematocrit 43.3 % (39.6-49.0); Lymphocytes % 29.6 % (15.3-44.8); Protime INR 1.06; RBC Red Blood Cell Count 4.99 M/uL (4.33-5.43)
[2019-09-30 10:20] LABS: ALT/SGPT 58 U/L (12-78); AST/SGOT 24 U/L (15-37); Albumin 3.7 g/dL (3.4-5.0); Alkaline Phosphatase 73 U/L (45-117); BUN Blood Urea Nitrogen 16 mg/dL (7-18); Bicarbonate 31 mmol/L (21-32); Bilirubin Direct 0.2 mg/dL (0-0.2); Bilirubin Total 0.4 mg/dL (0.2-1.0); Glucose Level 124 mg/dL (74-106); Magnesium 2.4 mg/dL (1.8-2.4); NT PRO-BNP 8 pg/mL (<125); Potassium 4.2 mmol/L (3.5-5.1); Protein, Total 8.1 g/dL (6.4-8.2); Sodium Level 140 mmol/L (136-145); Troponin (Emerg Dept Use Only) < 0.02 ng/mL (0.0-0.045)
--- NOTE | 2019-09-30 11:04 | RAD REPORT ---
EXAM DESCRIPTION: CT - Chest For Pe Angio - 09/30/2019 10:53 am CLINICAL HISTORY: Chest pain. hx of PE / off of xarelto COMPARISON: Chest For Pe Angio dated 03/24/2018 TECHNIQUE: CT angiogram of the pulmonary arteries was performed with MIP. All CT scans are performed using dose optimization technique as appropriate and may include automated exposure control or mA/KV adjustment according to patient size. FINDINGS: No evidence of pulmonary thromboembolism. No acute aortic finding demonstrated. The lungs are clear. No significant pericardial or pleural fluid. No concerning bony finding. IMPRESSION: No evidence of pulmonary thromboembolism. No acute lung findings.
--- NOTE | 2019-09-30 11:35 | RAD REPORT ---
EXAM DESCRIPTION: RAD - Chest Single View - 09/30/2019 11:18 am CLINICAL HISTORY: Chest pain COMPARISON: March 24, 2018 TECHNIQUE: AP portable chest image was obtained 1106 hours . FINDINGS: No focal lung parenchymal process. Interstitial pattern matches comparison. No significant failure or volume overload findings seen. Heart and vasculature are normal. No measurable pleural ef fusion and no pneumothorax. No acute bony abnormality seen. No acute aortic findings suspected. IMPRESSION: No acute cardiopulmonary process. No significant interval change.
--- NOTE | 2019-09-30 11:59 | EKG ---
Test Date: 2019-09-30 Test Time: 09:31:39 Engineering Mechanic: CRISTY MEASUREMENT RESULTS: Intervals: Rate: 64 FL: 146 QRSD: 74 QT: 388 QTc: 400 Peck: P: 69 FL: 146 QRS: 71 T: 68 INTERPRETIVE STATEMENTS: Normal sinus rhythm Early repolarization Normal ECG Compared to ECG 09/05/2018 18:20:46 Early repolarization now present ST (T wave) deviation no longer present Electronically Signed On 09-30-19 11:58:41 GENERAL SURGEON by Donte Miller
[2019-09-30] MEDS ORDERED: MORPHINE 4 MG/ML SYR ONE (13:03)
--- NOTE | 2019-09-30 13:36 | ER ---
Nurse's Notes [facility] Name: Nick Castro Age: 53 yrs Sex: Male : 1965 Arrival Date: 09/30/2019 Time: 09:28 Bed 7 Private MD: Diagnosis: Other chest pain Presentation: 09/30 09:29 Presenting complaint: EMS states: [facility] Chest pain x2days that radiates tw2 to back, tender on palpation, hx: PE, HTN, COPD, hyperlipidemia, vs stable. Transition of care: patient was not received from another setting of care. Onset of symptoms was September 30, 2019. Risk Assessment: Do you want to hurt yourself or someone else? Patient reports no desire to harm self or others. Initial Sepsis Screen: Does the patient meet any 2 criteria? No. Patient's initial sepsis screen is negative. Does the patient have a suspected source of infection? No. Patient's initial sepsis screen is negative. Care prior to arrival: None. 09:29 Method Of Arrival: EMS: [facility] tw2 09:29 Acuity: PARMJIT 3 tw2 Triage Assessment: 09:31 General: Appears in no apparent distress. Behavior is calm, cooperative, appropriate tw2 for age. Pain: Complains of pain in anterior aspect of left upper chest Pain radiates to back. Historical: - Allergies: 09:34 No Known Allergies; tw2 - Home Meds: 09:34 Bupropion Oral [Active]; Furosemide Oral [Active]; carvedilol oral oral [Active]; tw2 lisinopril 30 mg Oral tab 1 tab once daily [Active]; atorvastatin 20 mg oral tab 1 tab once daily [Active]; niacin 100 mg Oral tab 1 tab 2 times per day [Active]; - PMHx: 09:34 AAA; PE; CHF; Depression; Diabetes - NIDDM; High Cholesterol; Hypertension; PTSD; tw2 - PSHx: 09:34 Right Foot surgery; Hernia repair; R Radius repair x9; lipoma removed from rib cage; tw2 abd mesh implant; - Immunization history:: Adult Immunizations. - Social history:: Smoking status: . - Ebola Screening: : Patient denies travel to an Ebola-affected area in the 21 days before illness onset. Screenin:45 Abuse screen: Denies threats or abuse. Nutritional screening: No deficits noted. tw2 Tuberculosis screening: No symptoms or risk factors identified. Fall Risk None identified. Assessment: 09:44 General: Appears in no apparent distress. Behavior is calm, cooperative, appropriate tw2 for age. Pain: Complains of pain in chest and anterior aspect of left upper chest Pain radiates to back. Neuro: Level of Consciousness is awake, alert, obeys commands, Oriented to person, place, time, situation. Cardiovascular: Reports chest pain, pain with deep breath Heart tones S1 S2 Patient's skin is warm and dry. Respiratory: Reports cough that is non-productive, Airway is patent Respiratory effort is even, unlabored, Respiratory pattern is regular, symmetrical, Breath sounds are clear bilaterally. GI: No signs and/or symptoms were reported involving the gastrointestinal system. Abdomen is round non-distended, Bowel sounds present X 4 quads. : No signs and/or symptoms were reported regarding the genitourinary system. EENT: Reports nasal congestion nasal discharge. Derm: No signs and/or symptoms reported regarding the dermatologic system. Musculoskeletal: Range of motion: intact in all extremities. 11:09 Reassessment: Patient appears in no apparent distress at this time. No changes from tw2 previously documented assessment. Patient and/or family updated on plan of care and expected duration. Pain level reassessed. Patient is alert, oriented x 3, equal unlabored respirations, skin warm/dry/pink. 12:07 Reassessment: Patient appears in no apparent distress at this time. No changes from tw2 previously documented assessment. Patient and/or family updated on plan of care and expected duration. Pain level reassessed. Patient is alert, oriented x 3, equal unlabored respirations, skin warm/dry/pink. 13:38 Reassessment: Patient appears in no apparent distress at this time. No changes from tw2 previously documented assessment. Patient and/or family updated on plan of care and expected duration. Pain level reassessed. Patient is alert, oriented x 3, equal unlabored respirations, skin warm/dry/pink. Vital Signs: 09:31 BP 160 / 111; Pulse 73; Resp 18; Temp 98.2(TE); Pulse Ox 95% on R/A; Weight 111.13 kg tw2 (R); Height 5 ft. 10 in. (177.80 cm); Pain 8/10; 11:08 BP 163 / 119; Pulse 92; Resp 20; Pulse Ox 96% on R/A; tw2 12:07 BP 167 / 108; Pulse 69; Resp 17; Pulse Ox 97% on R/A; tw2 13:37 BP 197 / 125; Pulse 78; Resp 19; Pulse Ox 96% on R/A; tw2 14:32 BP 181 / 108; Pulse 70; Resp 16; Pulse Ox 99% on R/A; tw2 09:31 Body Mass Index 35.15 (111.13 kg, 177.80 cm) tw2 ED Course: 09:28 Patient arrived in ED. ms 09:29 Susan Miranda, RN is Primary Nurse. tw2 09:29 Bed in low position. Call light in reach. personnel monitor on. Pulse ox on. NIBP on. tw2 09:30 Triage completed. tw2 09:30 Arm band placed on. tw2 09:48 Elgin Chandra MD is Attending Physician. ps1 09:57 EKG done, by corrections identification technician. reviewed by Elgin Chandra MD. sm3 09:57 Initial lab(s) drawn, by in, sent to lab. Inserted saline lock: 20 gauge in right ms antecubital area, using aseptic technique. Blood collected. 10:56 CT Chest For PE Angio In Process Unspecified. EDMS 11:21 XRAY Chest (1 view) In Process Unspecified. EDMS 12:54 Troponin (emerg Dept Use Only) Sent. tw2 13:32 Franky Tang MD is Hospitalizing Provider. ps1 14:32 No provider procedures requiring assistance completed. Patient admitted, IV remains in tw2 place. Administered Medications: 13:15 Drug: morphine 4 mg Route: IVP; Site: right antecubital; tw2 13:45 Follow up: Response: No adverse reaction; Pain is decreased; RASS: Alert and Calm (0) tw2 Outcome: 13:32 Decision to Hospitalize by Provider. ps1 14:32 Admitted to Med/surg accompanied by tech, via wheelchair, room 228, with chart, Report tw2 called to AJ Pride 14:32 Condition: stable 14:32 Instructed on the need for admit. 14:48 Patient left the ED. tw2 Signatures: Dispatcher [employer] EDNJ Edelmira Olguin ms Susan Miranda RN RN tw2 Elgin Chandra MD MD ps1 Alysha Kaplan sm3
--- NOTE | 2019-09-30 13:37 | EDPHYS ---
Physician Documentation [facility] Name: Nick Castro Age: 53 yrs Sex: Male : 1965 Arrival Date: 09/30/2019 Time: 09:28 Bed 7 Private MD: ED Physician Elgin Chandra HPI: 09/30 12:49 This 53 yrs old Black Male presents to ER via EMS with complaints of Chest Pain > 30 ps1 y/o. 12:49 patient states that he has had chest pain localized to left chest and arm for a couple ps1 of days. Hx of PE and was treated on xarelto. Out of medication for 2 weeks. [facility]. Pain is rated as moderate. Partially reproducible. Not associated with productive cough or fever. . Historical: - Allergies: 09:34 No Known Allergies; tw2 - Home Meds: 09:34 Bupropion Oral [Active]; Furosemide Oral [Active]; carvedilol oral oral [Active]; tw2 lisinopril 30 mg Oral tab 1 tab once daily [Active]; atorvastatin 20 mg oral tab 1 tab once daily [Active]; niacin 100 mg Oral tab 1 tab 2 times per day [Active]; - PMHx: 09:34 AAA; PE; CHF; Depression; Diabetes - NIDDM; High Cholesterol; Hypertension; PTSD; tw2 - PSHx: 09:34 Right Foot surgery; Hernia repair; R Radius repair x9; lipoma removed from rib cage; tw2 abd mesh implant; - Immunization history:: Adult Immunizations. - Social history:: Smoking status: . - Ebola Screening: : Patient denies travel to an Ebola-affected area in the 21 days before illness onset. ROS: 12:49 Constitutional: Negative for fever, chills, and weight loss, Eyes: Negative for injury, ps1 pain, redness, and discharge, Respiratory: Negative for shortness of breath, cough, wheezing, and pleuritic chest pain, Abdomen/GI: Negative for abdominal pain, nausea, vomiting, diarrhea, and constipation, MS/Extremity: Negative for injury and deformity, Skin: Negative for injury, rash, and discoloration, Neuro: Negative for headache, weakness, numbness, tingling, and seizure. 12:49 Cardiovascular: Positive for chest pain. Exam: 12:49 Constitutional: This is a well developed, well nourished patient who is awake, alert, ps1 and in no acute distress. Head/Face: Normocephalic, atraumatic. Cardiovascular: Regular rate and rhythm. No gallops, murmurs, or rubs. Normal PMI, no JVD. No pulse deficits. Respiratory: Lungs have equal breath sounds bilaterally, clear to auscultation and percussion. No rales, rhonchi or wheezes noted. No increased work of breathing, no retractions or nasal flaring. Abdomen/GI: Soft, non-tender, with normal bowel sounds. No distension or tympany. No guarding or rebound. No evidence of tenderness throughout. Skin: Warm, dry with normal turgor. Normal color with no rashes, no lesions, and no evidence of cellulitis. MS/ Extremity: Pulses equal, no cyanosis. Neurovascular intact. Full, normal range of motion. Neuro: Awake and alert, GCS 15, oriented to person, place, time, and situation. Cranial nerves II-XII grossly intact. Sensory grossly intact. Psych: Awake, alert, with orientation to person, place and time. Behavior, mood, and affect are within normal limits. Vital Signs: 09:31 BP 160 / 111; Pulse 73; Resp 18; Temp 98.2(TE); Pulse Ox 95% on R/A; Weight 111.13 kg tw2 (R); Height 5 ft. 10 in. (177.80 cm); Pain 8/10; 11:08 BP 163 / 119; Pulse 92; Resp 20; Pulse Ox 96% on R/A; tw2 12:07 BP 167 / 108; Pulse 69; Resp 17; Pulse Ox 97% on R/A; tw2 13:37 BP 197 / 125; Pulse 78; Resp 19; Pulse Ox 96% on R/A; tw2 14:32 BP 181 / 108; Pulse 70; Resp 16; Pulse Ox 99% on R/A; tw2 09:31 Body Mass Index 35.15 (111.13 kg, 177.80 cm) tw2 MDM: 10:13 Patient medically screened. ps1 13:33 Differential diagnosis: acute myocardial infarction, acute pericarditis, anxiety, ps1 coronary artery disease chest wall pain, pulmonary embolus. Data reviewed: vital signs, nurses notes, lab test result(s), EKG, radiologic studies, and as a result, I will admit patient. 09/30 09:43 Order name: Basic Metabolic Panel; Complete Time: 10:21 tw2 09/30 09:43 Order name: CBC with Diff; Complete Time: 10:12 tw2 09/30 09:43 Order name: LFT's; Complete Time: 10:21 tw2 09/30 09:43 Order name: Magnesium; Complete Time: 10:21 tw09/30 09:43 Order name: NT PRO-BNP; Complete Time: 10:21 tw09/30 09:43 Order name: PT-INR; Complete Time: 10:12 tw2 09/30 09:43 Order name: Troponin (emerg Dept Use Only); Complete Time: 10:21 09/30 09:43 Order name: XRAY Chest (1 view); Complete Time: 11:40 tw2 09/30 09:43 Order name: EKG; Complete Time: 09:45 tw09/30 09:43 Order name: Cardiac monitoring; Complete Time: 09:41 tw2 09/30 10:14 Order name: CT Chest For PE Angio; Complete Time: 11:27 ps1 09/30 12:44 Order name: Troponin (emerg Dept Use Only); Complete Time: 13:31 ps1 09/30 09:43 Order name: EKG - Nurse/Tech; Complete Time: 09:41 09/30 09:43 Order name: IV Saline Lock; Complete Time: 09:54 tw2 09/30 09:43 Order name: Labs collected and sent; Complete Time: 09:54 09/30 09:43 Order name: O2 Per Protocol; Complete Time: 09:41 tw09/30 09:43 Order name: O2 Sat Monitoring; Complete Time: 09:41 tw2 EC:31 Rate is 64 beats/min. Rhythm is regular. QRS [place] is Normal. [place] interval is normal. QRS ps1 interval is normal. QT interval is normal. No Q waves. T waves are Normal. No ST changes noted. Clinical impression: jpoint elevation cw early repolarization in V4. NSR. Normal ekg otherwise. Interpreted by me. Administered Medications: 13:15 Drug: morphine 4 mg Route: IVP; Site: right antecubital; tw2 13:45 Follow up: Response: No adverse reaction; Pain is decreased; RASS: Alert and Calm (0) tw2 Disposition: 09/30/19 13:32 Hospitalization ordered by Franky Tang for Observation. Preliminary diagnosis is Other chest pain. - Bed requested for Telemetry/MedSurg (observation). - Status is Observation. tw2 - Condition is Stable. - Problem is new. - Symptoms are unchanged. UTI on Admission? No Signatures: Dispatcher [employer] EDKY Asya Grace bd Susan Miranda RN RN tw2 Elgin Chandra MD MD ps1 Corrections: (The following items were deleted from the chart) 13:17 13:09 EKG Electrocardiogram ordered. EDKY EDMS 14:28 13:32 Hospitalization Ordered by Franky Tang MD for Observation. Preliminary diagnosis bd is Other chest pain. Bed requested for Telemetry/MedSurg (observation). Status is Observation. Condition is Stable. Problem is new. Symptoms are unchanged. UTI on Admission? No. ps1 14:48 14:28 09/30/2019 13:32 Hospitalization Ordered by Franky Tang MD for Observation. tw2 Preliminary diagnosis is Other chest pain. Bed requested for Telemetry/MedSurg (observation). Status is Observation. Condition is Stable. Problem is new. Symptoms are unchanged. UTI on Admission? No. bd
[2019-09-30] MEDS ORDERED: NITROGLYCERIN 0.4 MG/TAB SL PRN (14:57)
[2019-09-30] MEDS ORDERED: ACETAMINOPHEN 500 MG TAB PO PRN (14:57)
[2019-09-30] MEDS ORDERED: HYDRALAZINE HCL 20 MG/ML VIAL IV ONE (15:09)
[2019-09-30 16:07] VITALS: BMI 35.2
[2019-09-30] MEDS ORDERED: CYCLOBENZAPRINE 10 MG TAB PO PRN (16:17)
[2019-09-30] MEDS ORDERED: HYDROCODONE/APAP 5/325 MG TAB PO PRN (16:17)
[2019-09-30] MEDS ORDERED: FLUTICASONE 50MCG NASAL SPRAY NAS PRN (16:17)
[2019-09-30] MEDS ORDERED: D50W 25 GM/50 ML SYRINGE/VIAL IV PRN (16:46)
[2019-09-30] MEDS ORDERED: GLUCAGON 1 MG/VIAL IM PRN (16:46)
[2019-09-30] MEDS ORDERED: INFLUENZA VACCINE (for 3y+) 0.5 ML DOSE IMVAC ONE (18:00)
[2019-09-30] MEDS ORDERED: RIVAROXABAN 20 MG TABLET PO SCH (18:16)
[2019-09-30] MEDS ORDERED: HYDRALAZINE HCL 20 MG/ML VIAL IV PRN (18:16)
[2019-09-30] MEDS: METOPROLOL TAR 25 MG TAB PO SCH (20:44)
[2019-09-30] MEDS: MORPHINE 2 MG/ML SYR IV PRN (20:48)
[2019-09-30] MEDS: INSULIN -REGULAR HUMAN 50 UNIT/0.5 ML ML SQ SCH (20:52)
[2019-09-30] MEDS ORDERED: HOME MED 1 EA UNK (Niacin [Niacin] 500 MG) PO SCH (21:00)
[2019-09-30] MEDS ORDERED: ATORVASTATIN 40 MG TAB PO SCH (21:00)
--- NOTE | 2019-09-30 21:30 | CON ---
History Of Present Illness: Mr. Castro is 53. He came to the hospital because of chest pain. He has been having pain for 3 days. He says it is most constant and it goes away a little bit. It is in t he left pectoral muscle, left shoulder blade area, does not seem to be related to exertion, meals, morgan dy position, taking a deep breath. Since he came to our hospital, he has had EKGs that do not sugges t new infarction, although he may have had an old inferior infarction and a CT angio of the chest is negative for pulmonary embolus. Cardiac enzymes are all normal. The patient has underlying hyperten jung, diabetes, and obesity. He had a stroke in 1994 and 2009, both times, affecting the left side o f his body. He has never had any vascular surgeries. No cardiac surgeries. Never had a cardiac cat heterization before. Allergies: HE HAS NO DRUG ALLERGIES. Social History: He does not use tobacco. Physical Examination: Vital Signs: He is 5 feet 10 inches, 245 pounds. General: Alert, oriented, pleasant, not in distress. Lungs: Clear. Heart: Within normal limits. Abdomen: Soft. Extremities: Palpable pulses. Neck: No carotid bruit. Diagnostic Studies: His EKG is normal. It shows early repolarization on normal variant. Impression: Mr. Castro has atypical chest pain. It could be pericarditis, but he does not have a fri ction rub or pleuritic-type chest pain, so I think that is unlikely. He may have coronary artery dis ease, so we should do a stress test. His echocardiogram has been done and does not show any signific ant abnormalities, although report is not yet on the chart. Impression: The patient's chest pain is probably noncardiac. He should have a nuclear stress test t omorrow. If that is normal, he could be discharged home. WILSON/ANISHA Voice ID: [id number] Report ID: [id number]
[2019-09-30 22:13] VITALS: O2SAT 96
[2019-09-30 22:17] LABS: Urine Appearance CLEAR; Urine Bilirubin NEGATIVE (NEG); Urine Blood NEGATIVE (NEG); Urine Color YELLOW; Urine Glucose NEGATIVE (NEG); Urine Protein NEGATIVE (NEG); Urine Urobilinogen 0.2 mg/dL (0.2-1.0)
[2019-09-30 22:24] LABS: Urine Microscopic Reflex NO UMIC
--- NOTE | 2019-09-30 23:49 | HP ---
Date of Admission: 09/30/2019 Chief Complaint: Chest pain. History Of Present Illness: Patient is a 53-year-old male with past medical history of diabetes, hyp ertension, history of TIA, history of [place] in the past as well as history of gastric ulcer perforation, and history of PE x2, who has been on warfarin since 2009, recently switched to Xarelto, who has not taken his dose for the past couple of weeks as he ran out, comes in due to chest pain. Patient stat es his pain was left-sided and radiating to the back, worse with deep breaths, also has some pleuriti c type chest pain. Denies any trauma or any cough, fever, chills, or any recent ill contacts. The p atient's symptoms are constant, moderate, progressively worsening. In the ER, his blood pressure was on the high side. Workup revealed negative cardiac enzymes. White blood cell count was normal. CT angio chest was negative for PE. There was no acute lung findings. EKG did not show any acute melvin ges. Patient was then referred for admission. When seen in the ER, he was awake, alert, and oriente d x3, in some mild distress. He had elevated blood pressure in the 200s. Hydralazine was ordered. Past Medical History: Hypertension, history of DVT, PE, on Xarelto; gastroesophageal reflux disease, gastric ulcer perforation, hyperlipidemia, history of stroke, and [place]. Past Surgical History: Right wrist surgery, right carpal tunnel surgery, hernia repair, toe surgery, surgery on gastric ulcer with perforated artery. Medications: List reviewed. Allergies: NO KNOWN DRUG ALLERGIES. Social History: Patient denies any tobacco use, alcohol use, or illicit drug use. Lives at home. H as children. Independent in his activities of daily living. Retired . Family History: Mother from lung cancer. Father has hypertension and diabetes. Review of Systems: Ten-point system reviewed, negative except as per HPI. Physical Examination: Vital Signs: Blood pressure 160/111, pulse 73, respirations 18, temperature 98.2, O2 95% on room air , BMI 35. General: Awake, alert, and oriented x3, in some mild distress. Obese male. BMI 35. HEENT: Normocephalic, atraumatic. PERRLA. EOMI. Dry mucous membranes. Oropharynx is clear. Conj unctivae are anicteric. Neck: Supple. No JVD. Trachea midline. CV: S1, S2. Regular rate and rhythm. Extremities: Peripheral pulses present. Respiratory: Moving air well bilaterally. No wheezing or stridor. No use of accessory muscles. Gastrointestinal: Abdomen is soft, nontender, nondistended. Positive bowel sounds. No guarding or rigidity. Extremities: No clubbing, cyanosis. Trace pedal edema. No calf tenderness. Neuro: Cranial nerves 2 through 12 intact grossly. No focal neurological deficits. Speech is momo l. Skin: No rashes. Normal skin turgor. Psych: Mood is okay. Affect is full. Insight and judgment are good. Laboratory Data: Sodium 140, potassium 4.2, chloride 106, CO2 31, BUN 16, creatinine 1.23, glucose 1 24, calcium 9, magnesium 2.4. Troponin less than 0.02. WBC 5, H and H 14.6 and 43.3, platelets 173, neutrophils 52%. INR 1.06. CT angio chest shows no acute pulmonary embolism. No acute lung findin gs. Chest x-ray, personally reviewed, shows no acute cardiopulmonary process. EKG, rate of 64, norm al sinus rhythm, early repolarization. Assessment: A 53-year-old male with, 1.Chest pain, rule out acute coronary syndrome. Patient has multiple risk factors including history of stroke, previous myocardial infarction, hypertension, diabetes. CT angio is negative for pulmona ry embolism. We will obtain echocardiogram, serial cardiac enzymes. Cardiology consultation. Start on chest pain guidelines. 2.Accelerated hypertension, not well controlled. Systolics in the 200s. We will give hydralazine p .r.n. and resume home medications as appropriate. 3.History of pulmonary embolism and deep venous thrombosis, on Xarelto. Has not taken his medicatio ns for the past couple of weeks as he ran out. We will verify his medications with pharmacy and resu me. CT angio was negative. 4.Hyperlipidemia. We will check lipid panel. Start on statin. 5.Diabetes mellitus type 2, xob-majnwls-jylyibtlr with hyperglycemia. We will start on sliding scal e insulin and monitor blood glucose levels. Patient does have hyperglycemia. 6.History of stroke, no residual deficits. 7.Gastroesophageal reflux disease with history of perforated gastric ulcer, status post open repair. We will continue on PPI. 8.History of myocardial infarction. Plan: Admit patient to Med-Surg, [facility] as observation. /ANISHA Voice ID: [id number]
[2019-10-01 04:29] LABS: Absolute Lymphocytes (CBC) 1.6 K/uL (0.7-4.9); Basophils % 0.5 % (0-1.3); Hematocrit 43.3 % (39.6-49.0); Lymphocytes % 31.9 % (15.3-44.8); MPV 11.1 fL (7.6-11.3); RBC Red Blood Cell Count 4.93 M/uL (4.33-5.43)
[2019-10-01 04:33] LABS: Potassium 3.8 mmol/L (3.5-5.1)
[2019-10-01] MEDS ORDERED: PANTOPRAZOLE 40MG TABLET PO SCH (06:30)
[2019-10-01] MEDS: MORPHINE 2 MG/ML SYR IV PRN (06:53)
[2019-10-01] MEDS: INSULIN -REGULAR HUMAN 50 UNIT/0.5 ML ML SQ SCH ×2 (07:30→11:30)
--- NOTE | 2019-10-01 07:41 | ECHO ---
HEIGHT: 5 ft 10 in WEIGHT: 245 lb 0 oz DATE OF STUDY: 09/30/[address]: Franky Tang MD 2-DIMENSIONAL: YES M.MODE: YES DOPPLER: YES COLOR FLOW: YES TDS: PORTABLE: DEFINITY: BUBBLE STUDY: DIAGNOSIS: CHEST PAIN CARDIAC HISTORY: CATHERIZATION: NO SURGERY: NO PROSTHETIC VALVE: NO PACEMAKER: NO MEASUREMENTS (cm) DIASTOLIC (NORMALS) SYSTOLIC (NORMALS) IVSd 1.0 (0.6-1.2) LA Diam 3.3 (1.9-4.0) LVEF 62% LVIDd 4.7 (3.5-5.7) LVIDs 3.1 (2.0-3.5) %FS 33% LVPWd 1.0 (0.6-1.2) Ao Diam 2.5 (2.0-3.7) 2 DIMENSIONAL ASSESSMENT: RIGHT ATRIUM: NORMAL LEFT ATRIUM: NORMAL RIGHT VENTRICLE: NORMAL LEFT VENTRICLE: NORMAL TRICUSPID VALVE: NORMAL MITRAL VALVE: NORMAL PULMONIC VALVE: NORMAL AORTIC VALVE: NORMAL PERICARDIAL EFFUSION: NONE AORTIC ROOT: NORMAL LEFT VENTRICULAR WALL MOTION: NORMAL DOPPLER/COLOR FLOW: NORMAL COMMENTS: NORMAL TWO DIMENSIONAL ECHOCARDIOGRAM WITH DOPPLER. TECHNOLOGIST: MIKEY KNOWLES
[2019-10-01] MEDS ORDERED: REGADENOSON 0.4 MG/5 ML SYR IV ONE (08:05)
[2019-10-01] MEDS ORDERED: ASPIRIN EC 81 MG TAB PO SCH (09:00)
[2019-10-01] MEDS ORDERED: CITALOPRAM 10 MG TABLET PO SCH (09:00)
[2019-10-01] MEDS ORDERED: CETIRIZINE HCL 5 MG TABLET PO PRN (09:00)
[2019-10-01] MEDS ORDERED: lisinopriL 20 MG TAB PO SCH (09:00)
[2019-10-01] MEDS: METOPROLOL TAR 25 MG TAB PO SCH (10:42)
--- NOTE | 2019-10-01 11:44 | RAD REPORT ---
EXAM DESCRIPTION: NM - Rest Stress Cardiac Imaging - 10/01/2019 11:29 am CLINICAL HISTORY: CP Chest pain. COMPARISON: No comparisons TECHNIQUE: The patient was administered approximately 10mCi of Tc 99m Sestamibi prior to resting SPE CT imaging of the heart. The patient was then administered approximately 30 mCi of Tc 99m Sestamibi f ollowing exercise or pharmacologic stress. Multiplanar SPECT images were reviewed. FINDINGS: No stress induced ischemic defect is seen to suggest stress induced ischemia. No fixed def ect is seen to suggest hibernating myocardium or scarred myocardium. The end diastolic volume is 105 ml, the end systolic volume is 52 ml, and the ejection fraction is 50 %. IMPRESSION: No stress induced ischemia.
--- NOTE | 2019-10-01 12:56 | PN ---
Admitted by Dr. Tang on 09/30/2019, seen by Dr. Miller on 09/30/2019 for chest pain. Today, he is c hest pain free. Sinus rhythm. No specific complaint. Echocardiogram was normal. Lexiscan is pendi ng. We will await the results of the Lexiscan before we send him home. No change in medical therapy at this point. SIMON/ANISHA Voice ID: [id number] Report ID: [id number]
[2019-10-01] MEDS ORDERED: KETOROLAC 30 MG/ML INJ IV ONE (13:02)
[2019-10-01 17:30] VITALS: BP 162/88; TEMP 97.3
--- NOTE | 2019-10-01 18:02 | DS ---
Date of Discharge: 10/01/2019 Consultants: Dr. Miller and Dr. Ram with Cardiology. Procedures: On 10/01/2019, cardiac stress test, which was negative for any stress-induced ischemia. Admitting Diagnoses: 1.Chest pain. 2.Diabetes mellitus type 2, non-insulin requiring with hyperglycemia. 3.Accelerated hypertension. 4.History of pulmonary embolus and deep vein thrombosis, on Xarelto. 5.Mixed hyperlipidemia. 6.History of cerebrovascular accident. No residual deficits. 7.Gastroesophageal reflux disease without esophagitis. 8.Obesity. BMI 35.2. Hospital Course: Patient is a 53-year-old male with past medical history of diabetes, hypertension, history of TIA and [place] in the past, GERD with history of gastric ulcer perforation in the past, histor y of venous thromboembolism, who has been on Xarelto, however, has not taken his medications for the past couple of weeks due to running out, comes in with chest pain. Due to his multiple risk factors, the patient was admitted to the hospital for further evaluation. CT angio chest was done and was ne gative for PE. Patient's blood pressure was very elevated with a systolic in the 190s and diastolic in the 120s. Patient medications were adjusted. He was given hydralazine IV. Cardiac enzymes were negative. Lipid panel showed LDL at 130. Total cholesterol was normal limits. Patient was seen by Cardiology. Echocardiogram was done, which showed EF of 62%. No wall motion abnormalities were seen . Patient was also taken for cardiac stress test, which showed no stress-induced ischemia. Patient was then cleared for discharge from Cardiology standpoint. He was with atypical chest pain as diagno sis. Patient likely has either musculoskeletal pain or referred pain from his gastroesophageal reflu x disease. Recommended to follow up with GI as an outpatient. Follow up with elementary school counselor, Dr. Robbins is in 2 weeks. Follow up with primary care physician in 2-3 days. Return to ER for worsening condit ion. Diet: Diabetic diet. Physical Examination: General: Awake, alert, oriented x3, obese male. CV: S1, S2. Respiratory: Moving air well. Gastrointestinal: Abdomen is soft and nondistended, nontender. Positive bowel sounds. Extremities: No clubbing, cyanosis, or edema. Neurologic: Nonfocal. SA/MODL Voice ID: [id number] Report ID: [id number]
[2019-10-01] MEDS ORDERED: NIACIN 500 MG SR TAB PO SCH (21:00)
[2019-10-02] MEDS ORDERED: RIVAROXABAN 10 MG TABLET PO SCH (09:00)
--- NOTE | 2019-10-02 09:39 | TREADPHA ---
DX: CHEST PAIN Date of Study: 10/01/2019 Ht: 5 10 Wt: 245 lb 0 oz Consulting Physician: QUYEN MEDICATIONS: TYLENOL, NORCO, LIPITOR, ASPIRIN, CELEXA, FLEXERIL, GLUCAGEN, NOVOLIN R, LOPRESSOR, PRINIVIL HISTORY: HYPERTENSION, HIGH CHOLESTEROL, CHRONIC BACK PAIN, ANXIETY, COPD, PLEURAL EFFUSION, PTSD, NON INSULIN DEPENDENT DIABETES MELLITUS. PHYSICIAL EXAMINATION: RESTING B.P.: 143/97 RESTING H.R.: 73 RESTING EKG: NORMAL SINUS RHYTHM, NON SPECIFIC ST PROTOCOL: LEXISCAN EXERCISE TIME: 3:30 B.P. AT [place]AK STRESS: 166/109 IMPRESSION: LEXISCAN STRESS TEST PERFORMED. CARDIOLITE INJECTED PER PROTOCOL. NO SUPRAVENTRICULAR TACHYCARDIA OR VENTRICULAR TACHYCARDIA NOTED. PATIENT DENIED INCREASE IN CHEST PAIN. REPEAT BLOOD PRESSURE 153/99. PATIENT TOLERATED WELL. SEE NUCLEAR MEDICINE REPORT.
== END 2019-10-01 16:39 | disposition home or self-care (01) ==
LOC: ER 09:24 → ERHOLD 13:35 → 2ND 14:32
PROVIDERS: ADMIT Family Medicine; ATTEND Family Medicine
DX: R07.9 Chest pain, unspecified (principal); E11.65 Type 2 diabetes mellitus with hyperglycemia; I10 Essential (primary) hypertension; E78.2 Mixed hyperlipidemia; E66.9 Obesity, unspecified; Z68.35 Body mass index [BMI] 35.0-35.9, adult; K21.9 Gastro-esophageal reflux disease without esophagitis; Z86.711 Personal history of pulmonary embolism; Z79.01 Long term (current) use of anticoagulants; Z86.718 Personal history of other venous thrombosis and embolism; Z86.73 Personal history of transient ischemic attack (TIA), and cerebral infarction without residual deficits
CPT/HCPCS: 93005; 93017; 93306; 85025 ×2; 80048 ×2; 36415; 83735; 85610; 80061; 82947 ×5; 80076; 81003; 84484 ×4; 83880; 71275; 71045; 78452; 96374; 99285; Q9967; J0360; J2270 ×2; J2785; A9500; G0378 ×3

== ENCOUNTER 2019-10-13 00:45 | Observation (INO) | payer OTHER ==
--- NOTE | 2019-10-13 01:22 | EDPHYS ---
Physician Documentation [facility] Name: Nick Castro Age: 53 yrs Sex: Male : 1965 Arrival Date: 10/13/2019 Time: 00:47 Bed 15 Private MD: ED Physician Mike Sumner HPI: 10/13 01:16 This 53 yrs old Black Male presents to ER via Unassigned with complaints of Productive alejo Cough. 01:16 The patient or guardian reports cough, difficulty breathing. Onset: The alejo symptoms/episode began/occurred 1 week(s) ago. Severity of symptoms: At their worst the symptoms were mild, moderate, in the emergency department the symptoms are unchanged. Modifying factors: The symptoms are alleviated by nothing, the symptoms are aggravated by nothing, talking. Associated signs and symptoms: The patient has no apparent associated signs or symptoms. The patient has experienced similar episodes in the past, a few times. Historical: - Allergies: 01:10 No Known Allergies; jb4 - Home Meds: 01:10 niacin 100 mg Oral tab 1 tab 2 times per day [Active]; amlodipine 10 mg tab 1 tab once jb4 daily [Active]; aspirin 81 mg Oral chew 1 tab once daily [Active]; cetirizine 10 mg oral tab 1 tab once daily [Active]; cholecalciferol (vitamin D3) 1,000 unit oral tab daily [Active]; citalopram 40 mg tab 1 tab once daily [Active]; clobetasol 0.05 % Topical crea [Active]; Combivent 18-103 mcg/actuation Inhl aero 2 puffs 4 times per day [Active]; cyclobenzaprine 10 mg Oral tab 3 times per day [Active]; fluticasone inhalation 50mcg inhalation [Active]; hydrocodone-acetaminophen 5-325 mg Oral tab 1 tab every 6 hours [Active]; omeprazole 20 mg Oral cpDR 1 cap 2 times per day [Active]; rosuvastatin 40 mg oral tab 1 tab once daily [Active]; vardenafil oral 20mg oral 0.5 tab before sex [Active]; lisinopril hctz 20mg daily [Active]; potassium chloride 10 mEq Oral TbER 1 tab once daily [Active]; Xarelto 10 mg oral tab 1 tab once daily [Active]; - PMHx: 01:10 AAA; Depression; Diabetes - NIDDM; High Cholesterol; Hypertension; PE; PTSD; CHF; jb4 Hernia; Anxiety; - PSHx: 01:10 Right Foot surgery; Hernia repair; lipoma removed from rib cage; abd mesh implant; R jb4 Radius repair x9; - Immunization history:: Adult Immunizations unknown. - Social history:: Smoking status: Patient/guardian denies using tobacco, Patient/guardian denies using alcohol, street drugs. - Family history:: not pertinent. - Ebola Screening: : No symptoms or risks identified at this time. ROS: 01:16 Constitutional: Negative for fever, chills, and weight loss, Eyes: Negative for injury, alejo pain, redness, and discharge, ENT: Negative for injury, pain, and discharge, Neck: Negative for injury, pain, and swelling, Respiratory: Negative for shortness of breath, cough, wheezing, and pleuritic chest pain, Abdomen/GI: Negative for abdominal pain, nausea, vomiting, diarrhea, and constipation, Back: Negative for injury and pain, : Negative for injury, bleeding, discharge, and swelling, MS/Extremity: Negative for injury and deformity, Skin: Negative for injury, rash, and discoloration, Neuro: Negative for headache, weakness, numbness, tingling, and seizure, Psych: Negative for depression, anxiety, suicide ideation, homicidal ideation, and hallucinations, Allergy/Immunology: Negative for hives, rash, and allergies, Endocrine: Negative for neck swelling, polydipsia, polyuria, polyphagia, and marked weight changes, Hematologic/Lymphatic: Negative for swollen nodes, abnormal bleeding, and unusual bruising. 01:16 Cardiovascular: Positive for chest pain. Exam: 01:16 Constitutional: This is a well developed, well nourished patient who is awake, alert, alejo and in no acute distress. Head/Face: Normocephalic, atraumatic. Eyes: Pupils equal round and reactive to light, extra-ocular motions intact. Lids and lashes normal. Conjunctiva and sclera are non-icteric and not injected. Cornea within normal limits. Periorbital areas with no swelling, redness, or edema. ENT: Nares patent. No nasal discharge, no septal abnormalities noted. Tympanic membranes are normal and external auditory canals are clear. Oropharynx with no redness, swelling, or masses, exudates, or evidence of obstruction, uvula midline. Mucous membranes moist. Neck: Trachea midline, no thyromegaly or masses palpated, and no cervical lymphadenopathy. Supple, full range of motion without nuchal rigidity, or vertebral point tenderness. No Meningismus. Chest/axilla: Normal chest wall appearance and motion. Nontender with no deformity. No lesions are appreciated. Respiratory: Lungs have equal breath sounds bilaterally, clear to auscultation and percussion. No rales, rhonchi or wheezes noted. No increased work of breathing, no retractions or nasal flaring. Abdomen/GI: Soft, non-tender, with normal bowel sounds. No distension or tympany. No guarding or rebound. No evidence of tenderness throughout. Back: No spinal tenderness. No costovertebral tenderness. Full range of motion. Male : Normal genitalia with no discharge or lesions. Skin: Warm, dry with normal turgor. Normal color with no rashes, no lesions, and no evidence of cellulitis. MS/ Extremity: Pulses equal, no cyanosis. Neurovascular intact. Full, normal range of motion. Neuro: Awake and alert, GCS 15, oriented to person, place, time, and situation. Cranial nerves II-XII grossly intact. Motor strength 5/5 in all extremities. Sensory grossly intact. Cerebellar exam normal. Normal gait. Psych: Awake, alert, with orientation to person, place and time. Behavior, mood, and affect are within normal limits. 01:16 Cardiovascular: Rate: tachycardic, Rhythm: regular, Pulses: Pulses are 4+ in bilateral radial, brachial, femoral, popliteal, posterior tibial and and dorsalis pedis arteries.. Heart sounds: normal, JVD: is not appreciated. Vital Signs: 01:10 BP 159 / 114; Pulse 70; Resp 18; Temp 97.9(O); Pulse Ox 97% on R/A; Weight 110.22 kg jb4 (R); Height 5 ft. 11 in. (180.34 cm) (R); Pain 9/10; 03:00 BP 151 / 92; Pulse 89; Resp 16; Pulse Ox 98% on R/A; jb4 01:10 Body Mass Index 33.89 (110.22 kg, 180.34 cm) jb4 MDM: 00:50 Patient medically screened. [facility] 01:16 Data reviewed: vital signs, nurses notes, lab test result(s), EKG, radiologic studies, [facility] CT scan, plain films. 10/13 00:55 Order name: Basic Metabolic Panel; Complete Time: 02:06 [facility] 10/13 00:55 Order name: CBC with Diff; Complete Time: 02:06 [facility] 10/13 00:55 Order name: LFT's; Complete Time: 02:06 [facility] 10/13 00:55 Order name: Magnesium; Complete Time: 02:06 [facility] 10/13 00:55 Order name: NT PRO-BNP; Complete Time: 02:06 [facility] 10/13 00:55 Order name: PT-INR; Complete Time: 05:42 [facility] 10/13 00:55 Order name: Troponin (emerg Dept Use Only); Complete Time: 02:06 [facility] 10/13 00:55 Order name: Blood Culture Adult (2) [facility] 10/13 00:55 Order name: Influenza Screen (a \T\ B); Complete Time: 05:42 [facility] 10/13 00:55 Order name: Chest Pa And Lat (2 Views) XRAY [facility] 10/13 01:32 Order name: Lipase; Complete Time: 02:06 [facility] 10/13 04:30 Order name: Urine Dipstick--Ancillary (enter results) ar5 10/13 05:20 Order name: Urine Dipstick-Ancillary; Complete Time: 05:42 [facility] 10/13 00:55 Order name: EKG; Complete Time: 00:56 [facility] 10/13 00:55 Order name: Cardiac monitoring; Complete Time: 02:09 [facility] 10/13 00:55 Order name: EKG - Nurse/Tech; Complete Time: 02:09 [facility] 10/13 00:55 Order name: IV Saline Lock; Complete Time: 02:09 [facility] 10/13 00:55 Order name: Labs collected and sent; Complete Time: 02:09 [facility] 10/13 00:55 Order name: O2 Per Protocol; Complete Time: 02:09 [facility] 10/13 00:55 Order name: O2 Sat Monitoring; Complete Time: 02:09 [facility] 10/13 01:16 Order name: CT Chest For PE Angio [facility] 10/13 01:23 Order name: Urine Dipstick-Ancillary (obtain specimen); Complete Time: 04:39 [facility] 10/13 01:56 Order name: Chest For Pe Angio [facility] 10/13 01:59 Order name: Heart Healthy [facility] 10/13 08:45 Order name: RAD [facility] Administered Medications: 02:46 Drug: NS 0.9% 1000 ml Route: IV; Rate: 1 bolus; Site: right antecubital; jb4 02:52 Follow up: Response: No adverse reaction; IV Status: Infusion continued upon admission jb4 Disposition: 10/13/19 01:22 Hospitalization ordered by Salvador Wilson for Inpatient Admission. Preliminary diagnosis are Chest pain on breathing, Dyspnea, Essential (primary) hypertension, Personal history of pulmonary embolism, Pulmonary embolism - right upper and right lower. - Bed requested for [facility] ER HOLD. - Status is Inpatient Admission. ph - Condition is Fair. - Problem is new. - Symptoms have improved. UTI on Admission? No Signatures: Dispatcher [employer] [facility] Mike Sumner MD MD cha Hall, Patricia, RN RN ph Garcia, Cindy, RN RN cg Bryson, James, RN RN jb4 Corrections: (The following items were deleted from the chart) 01:32 01:23 LIPASE+C.LAB.BRZ ordered. [facility] 01:56 01:22 Hospitalization Ordered by Salvador Wilson MD for Inpatient Admission. Preliminary cg diagnosis is Chest pain on breathing; Dyspnea; Essential (primary) hypertension. Bed requested for Telemetry/MedSurg (Inpatient). Status is Inpatient Admission. Condition is Fair. Problem is new. Symptoms have improved. UTI on Admission? No. alejo 03:02 01:56 10/13/2019 01:22 Hospitalization Ordered by Salvador Wilson MD for Inpatient alejo Admission. Preliminary diagnosis is Chest pain on breathing; Dyspnea; Essential (primary) hypertension. Bed requested for [facility] ER HOLD. Status is Inpatient Admission. Condition is Fair. Problem is new. Symptoms have improved. UTI on Admission? No. cg 15:12 03:02 10/13/2019 01:22 Hospitalization Ordered by Salvador Wilson MD for Inpatient ph Admission. Preliminary diagnosis is Chest pain on breathing; Dyspnea; Essential (primary) hypertension; Personal history of pulmonary embolism; Pulmonary embolism - right upper and right lower. Bed requested for [facility] ER HOLD. Status is Inpatient Admission. Condition is Fair. Problem is new. Symptoms have improved. UTI on Admission? No. alejo
[2019-10-13 01:36] LABS: Absolute Lymphocytes (CBC) 1.9 K/uL (0.7-4.9); Basophils % 0.9 % (0-1.3); Hematocrit 40.6 % (39.6-49.0); Lymphocytes % 29.2 % (15.3-44.8); MPV 11.2 fL (7.6-11.3); RBC Red Blood Cell Count 4.68 M/uL (4.33-5.43)
[2019-10-13 01:39] LABS: Protime INR 1.09
[2019-10-13 01:49] LABS: ALT/SGPT 77 U/L (12-78); AST/SGOT 29 U/L (15-37); Albumin 3.3 g/dL (3.4-5.0); Alkaline Phosphatase 71 U/L (45-117); BUN Blood Urea Nitrogen 10 mg/dL (7-18); Bicarbonate 32 mmol/L (21-32); Bilirubin Direct 0.1 mg/dL (0-0.2); Bilirubin Total 0.5 mg/dL (0.2-1.0); Glucose Level 213 mg/dL (74-106); Lipase 120 U/L (73-393); Magnesium 2.1 mg/dL (1.8-2.4); NT PRO-BNP 18 pg/mL (<125); Potassium 3.6 mmol/L (3.5-5.1); Protein, Total 7.1 g/dL (6.4-8.2); Sodium Level 141 mmol/L (136-145); Troponin (Emerg Dept Use Only) < 0.02 ng/mL (0.0-0.045)
[2019-10-13] MEDS ORDERED: ACETAMINOPHEN 500 MG TAB PO PRN (01:55)
[2019-10-13] MEDS ORDERED: ALPRAZOLAM 0.25 MG TABLET PO PRN (01:55)
[2019-10-13] MEDS ORDERED: HYDROCODONE/APAP 5/325 MG TAB PO PRN (01:59)
[2019-10-13] MEDS ORDERED: LORazepam 2 MG/ML VIAL IV PRN (02:01)
[2019-10-13] MEDS ORDERED: NA CHLORIDE 0.9% 1,000 ML ONE (02:41)
[2019-10-13 04:00] VITALS: O2SAT 98; BMI 40.8
[2019-10-13] MEDS ORDERED: MORPHINE 4 MG/ML SYR ONE ×2 (04:52→09:26)
[2019-10-13] MEDS: MORPHINE 4 MG/ML SYR IV PRN ×2 (04:59→09:31)
[2019-10-13 05:20] LABS: Urine Blood NEGATIVE (NEG); Urine Glucose 1+ (NEG); Urine Protein NEGATIVE (NEG); Urine pH 7.5 (5.0-7.0)
[2019-10-13] MEDS ORDERED: METOPROLOL XL 50 MG TAB PO SCH (06:00)
[2019-10-13] MEDS ORDERED: METOPROLOL XL 50 MG TAB PO ONE (06:18)
[2019-10-13] MEDS ORDERED: PANTOPRAZOLE 40MG TABLET PO ONE (06:18)
[2019-10-13] MEDS ORDERED: PANTOPRAZOLE 40MG TABLET PO SCH (06:30)
--- NOTE | 2019-10-13 07:23 | P.HP ---
Certification for Inpatient Patient admitted to: Observation With expected LOS: <2 Midnights Patient will require the following post-hospital care: None Practitioner: I am a practitioner with admitting privileges, knowledge of patient current condition, hospital course, and medical plan of care. Services: Services provided to patient in accordance with Admission requirements found in Title 42 Section 412.3 of the Code of Federal Regulations Patient History Date of Service: 10/13/19 Reason for admission: Chest pain; history of pulmonary embolism; told by [facility] he has a PE History of Present Illness: Patient is a 53-year-old gentleman with a history of DVT who presented to the emergency room because he was notified by the [facility] that he had a pulmonary embolism. He was not able to come right away because his children had his vehicle. The came back to the house around midnight and he drove himself to the hospital. He had recently been to our hospital around and had a stress test as well as the CT PE protocol. Stress test was negative and PE did not reveal a pulmonary embolism. We had repeated the CT with PE protocol last night and it revealed that patient had a right upper lobe can a right lower lobe pulmonary emboli. Patient has not been taking his Xarelto as prescribed. Will go ahead and restarted. He did tell the ER physician that he took 1 at 11 the prior day. We should not have to initiate a loading dose for him. We will continue 20 mg daily. Allergies No Known Drug Allergies Allergy (Verified 09/30/19 18:29) Unknown No Known Allergies Allergy (Uncoded 03/27/16 04:39) Unknown Home Medications: Omeprazole [Prilosec] 20 mg PO DAILY 07/13/13 Clobetasol Propionate/Emoll [Clobetasol Emollient 0.05% Crm] 1 appl TP BIDP PRN 06/12/15 Amlodipine Besylate 10 mg PO DAILY 09/30/19 Aspirin [Aspirin EC 81 MG] 81 mg PO DAILY 09/30/19 Cetirizine HCl 10 mg PO DAILY PRN 09/30/19 Cholecalciferol (Vitamin D3) [Vitamin D3] 1,000 unit PO DAILY 09/30/19 Citalopram [Celexa*] 40 mg PO DAILY 09/30/19 Combivent 14.7gm 1 spray IH QIDP PRN 09/30/19 Cyclobenzaprine [Flexeril*] 10 mg PO TID PRN 09/30/19 Fluticasone [Flonase 50MCG Nasal [place]*] 2 sprays NS DAILY PRN 09/30/19 Hydrocodone 5/APAP 325 [[place] 5/325*] 1 tab PO QIDP PRN 09/30/19 Lisinopril/Hydrochlorothiazide [Lisinopril-Hctz 20-25 mg Tab] 1 tab PO DAILY Niacin 500 mg PO BEDTIME 09/30/19 Potassium Chloride 10 meq PO DAILY 09/30/19 Rosuvastatin [Crestor*] 40 mg PO BEDTIME 09/30/19 Vardenafil HCl 10 mg PO PRN PRN 09/30/19 Rivaroxaban [Xarelto*] 10 mg PO DAILY #30 tablet 10/01/19 - Past Medical/Surgical History Diabetic: Yes -: Conestive Heart Failure -: Non-Insulin Dependent Diabetes -: Asthma -: Sickle Cell Trait -: Hypertension -: MIx2 -: PE -: Hyperlipedemia -: Stroke x2 -: Right arm sx x9 -: Hernia Repair and mesh placement -: Lipoma removed from right rib -: right big toe, artificial knuckle -: Carpal tunel sx -: Right foot sx x2 - Family History Mother Medical History: Lung disease, Diabetes, Cancer Notes: Lung Cancer Father Medical History: Stroke - Social History Smoking Status: Never smoker Alcohol use: No CD- Drugs: No Caffeine use: No Place of Residence: Home Review of Systems 10-point ROS is otherwise unremarkable Physical Examination - Vital Signs Temperature: 97.8 F Blood Pressure: 152/115 Pulse: 69 Respirations: 15 Pulse Ox (%): 94 - Physical Exam General: Alert, In no apparent distress, Oriented x3 HEENT: Atraumatic, PERRLA, Mucous membr. moist/pink, EOMI, Sclerae nonicteric Neck: Supple, 2+ carotid pulse no bruit, No LAD, Without JVD or thyroid abnormality Respiratory: Clear to auscultation bilaterally, Normal air movement Cardiovascular: Regular rate/rhythm, Normal S1 S2, No murmurs Gastrointestinal: Normal bowel sounds, Soft and benign, Non-distended, No tenderness Musculoskeletal: No clubbing, No swelling, No tenderness Integumentary: No rashes Neurological: Normal gait, Normal speech, Normal strength at 5/5 x4 extr, Normal tone, Sensation intact, Cranial nerves 3-12 intact, Normal affect Lymphatics: No axilla or inguinal lymphadenopathy - Studies Laboratory Data (last 24 hrs) 10/13/19 01:23: Lipase Cancelled 10/13/19 01:18: PT 12.8 H, INR 1.09 10/13/19 01:18: WBC 6.6 D, Hgb 13.8, Hct 40.6, Plt Count 188 10/13/19 01:18: Sodium 141, Potassium 3.6, BUN 10, Creatinine 1.25, Glucose 213 H, Magnesium 2.1, Total Bilirubin 0.5, AST 29, ALT 77, Alkaline Phosphatase 71, Lipase 120 Microbiology Data (last 24 hrs): 10/13/19 01:18 Nasopharnyx Influenza Type A Antigen Screen - Final 10/13/19 01:18 Nasopharnyx Influenza Type B Antigen Screen - Final Assessment & Plan - Problems (Diagnosis) (1) Chest pain Current Visit: Yes Status: Acute (2) Pulmonary embolism Current Visit: Yes Status: Acute (3) Non-compliant behavior Current Visit: Yes Status: Acute (4) Sickle cell trait Current Visit: Yes Status: Acute (5) History of stroke Current Visit: Yes Status: Acute (6) History of CHF (congestive heart failure) Current Visit: Yes Status: Acute (7) Hypertensive urgency Current Visit: Yes Status: Acute - Plan Plan: 1. Resume anti coagulation was Xarelto 20 mg daily 2. Pain control as needed 3. Monitor hemodynamics; strict blood pressure control 4. Possible discharge home if he is oxygenating well and symptoms are stable. Recent echo did not reveal any straining. 5. GI and DVT prophylaxis Discharge Plan: Home Plan to discharge in: Greater than 2 days - Advance Directives Does patient have a Living Will: No Does patient have a Durable POA for Healthcare: No - Code Status/Comfort Care Code Status Assessed: Yes Code Status: Full Code Critical Care: No Time Spent Managing PTS Care (In Minutes): 45
--- NOTE | 2019-10-13 08:43 | RAD REPORT ---
EXAM DESCRIPTION: RAD - Chest Pa And Lat (2 Views) - 10/13/2019 2:27 am CLINICAL HISTORY: COUGH, chest pain and shortness of breath COMPARISON: CT chest PE study October 13, portable chest September 30 TECHNIQUE: PA and lateral views of the chest were obtained. FINDINGS: The lungs are clear. No pulmonary hemorrhage over areas of diminished vascularity. Heart size is normal and central vasculature is within normal limits. No pleural effusion or pneumothorax seen. No acute bony finding noted. No aortic abnormality. IMPRESSION: No acute cardiopulmonary process.
[2019-10-13] MEDS ORDERED: METOPROLOL TAR 50 MG TAB PO SCH (09:00)
[2019-10-13] MEDS ORDERED: hydroCHLOROthiazide 25 MG TAB PO SCH (09:00)
[2019-10-13] MEDS ORDERED: lisinopriL 20 MG TAB PO SCH (09:00)
[2019-10-13] MEDS ORDERED: INFLUENZA VACCINE (for 3y+) 0.5 ML DOSE IMVAC ONE (09:00)
[2019-10-13] MEDS ORDERED: CITALOPRAM 10 MG TABLET PO SCH (09:00)
[2019-10-13] MEDS ORDERED: AMLODIPINE 10 MG TAB PO SCH (09:00)
[2019-10-13] MEDS ORDERED: ASPIRIN EC 81 MG TAB PO SCH (09:00)
[2019-10-13] MEDS ORDERED: APIXABAN 5 MG TABLET PO SCH (09:00)
[2019-10-13] MEDS ORDERED: lisinopriL 20 MG TAB ONE (09:01)
[2019-10-13] MEDS ORDERED: ASPIRIN EC 81 MG TAB PO ONE (09:01)
[2019-10-13] MEDS ORDERED: hydroCHLOROthiazide 25 MG TAB ONE (09:01)
--- NOTE | 2019-10-13 10:09 | EKG ---
Test Date: 2019-10-13 Test Time: 01:38:12 Metal Alloy Scientist: HILLARY MEASUREMENT RESULTS: Intervals: Rate: 76 ME: 158 QRSD: 80 QT: 340 QTc: 382 [place]: P: 63 ME: 158 QRS: 69 T: -41 INTERPRETIVE STATEMENTS: Normal sinus rhythm T wave abnormality, consider inferior ischemia Abnormal ECG Compared to ECG 09/30/2019 09:31:39 T-wave abnormality now present Possible ischemia now present Early repolarization no longer present Electronically Signed On 10-13-19 10:09:15 EQUIPMENT OILER by Donte Miller
--- NOTE | 2019-10-13 10:18 | P.CNS ---
Date of Consult: 10/13/19 Chief Complaint: Pulmonary embolism History of Present Illness: Patient is 53 years of age with a history of recurrent thromboembolism apparently this is his 3rd time he did undergo a CT angiogram at the [facility] was found to have a pulmonary embolism and was sent to the emergency room here he has been short of breath for the past 2 weeks was recently in the hospital CT angiogram did not show any evidence of PE was discharged home on Xarelto 10 mg daily patient last had stopped his Xarelto for 6 months before he was resumed at his last hospitalization history of congestive heart failure he does have chronic lower extremity edema history of sleep apnea Allergies No Known Drug Allergies Allergy (Verified 09/30/19 18:29) Unknown No Known Allergies Allergy (Uncoded 03/27/16 04:39) Unknown Home Medications: Omeprazole [Prilosec] 20 mg PO DAILY 07/13/13 Clobetasol Propionate/Emoll [Clobetasol Emollient 0.05% Crm] 1 appl TP BIDP PRN 06/12/15 Amlodipine Besylate 10 mg PO DAILY 09/30/19 Aspirin [Aspirin EC 81 MG] 81 mg PO DAILY 09/30/19 Cetirizine HCl 10 mg PO DAILY PRN 09/30/19 Cholecalciferol (Vitamin D3) [Vitamin D3] 1,000 unit PO DAILY 09/30/19 Citalopram [Celexa*] 40 mg PO DAILY 09/30/19 Combivent 14.7gm 1 spray IH QIDP PRN 09/30/19 Cyclobenzaprine [Flexeril*] 10 mg PO TID PRN 09/30/19 Fluticasone [Flonase 50MCG Nasal [place]*] 2 sprays NS DAILY PRN 09/30/19 Hydrocodone 5/APAP 325 [[place] 5/325*] 1 tab PO QIDP PRN 09/30/19 Lisinopril/Hydrochlorothiazide [Lisinopril-Hctz 20-25 mg Tab] 1 tab PO DAILY Niacin 500 mg PO BEDTIME 09/30/19 Potassium Chloride 10 meq PO DAILY 09/30/19 Rosuvastatin [Crestor*] 40 mg PO BEDTIME 09/30/19 Vardenafil HCl 10 mg PO PRN PRN 09/30/19 Rivaroxaban [Xarelto*] 10 mg PO DAILY #30 tablet 10/01/19 - Past Medical/Surgical History Diabetic: Yes -: Conestive Heart Failure -: Non-Insulin Dependent Diabetes -: Asthma -: Sickle Cell Trait -: Hypertension -: MIx2 -: PE -: Hyperlipedemia -: Stroke x2 -: Right arm sx x9 -: Hernia Repair and mesh placement -: Lipoma removed from right rib -: right big toe, artificial knuckle -: Carpal tunel sx -: Right foot sx x2 - Family History Mother Medical History: Lung disease, Diabetes, Cancer Notes: Lung Cancer Father Medical History: Stroke - Social History Smoking Status: Never smoker Alcohol use: No CD- Drugs: No Caffeine use: No Place of Residence: Home Review of Systems 10-point ROS is otherwise unremarkable General: Weakness Respiratory: Shortness of Breath Cardiovascular: Edema Physical Examination Temp Pulse Resp BP Pulse Ox 97.8 F 63 20 124/67 98 10/13/19 08:00 10/13/19 09:00 10/13/19 09:31 10/13/19 09:00 10/13/19 09:31 General: Alert, In no apparent distress, Oriented x3 Respiratory: Clear to auscultation bilaterally Cardiovascular: No edema, Regular rate/rhythm Gastrointestinal: Normal bowel sounds, Soft and benign Laboratory Data (last 24 hrs) 10/13/19 01:23: Lipase Cancelled 10/13/19 01:18: PT 12.8 H, INR 1.09 10/13/19 01:18: WBC 6.6 D, Hgb 13.8, Hct 40.6, Plt Count 188 10/13/19 01:18: Sodium 141, Potassium 3.6, BUN 10, Creatinine 1.25, Glucose 213 H, Magnesium 2.1, Total Bilirubin 0.5, AST 29, ALT 77, Alkaline Phosphatase 71, Lipase 120 - Problems (1) Pulmonary embolism Current Visit: Yes Status: Acute Plan: Patient is 53 years of age treated with recurrent pulmonary embolism history of non compliant recently for 6 months as currently stable vital signs are all stable oxygenation satisfactory history of congestive heart failure diabetes hypertension obstructive sleep apnea CT scan shows some pulmonary emboli in the right lung as is hemodynamically stable patient can be discharged home on Xarelto 15 mg twice a day for 3 weeks then 20 mg once a day I have informed and he needs to be on lifelong anticoagulation the cyst and 20 mg of Xarelto for at least 3-6 months in following that 10 mg once a day labs reviewed stable to be discharged I have also advised him to follow up in my office in 1 or 2 weeks or to call my office and get some samples if he has difficulty obtaining is prescriptions Qualifiers: Chronicity: unspecified
--- NOTE | 2019-10-13 10:43 | P.DS ---
Admission Date: 10/13/19 Discharge Date: 10/13/19 Primary Care Provider: [facility] Disposition: ROUTINE DISCHARGE Discharge Condition: GOOD Reason for Admission: Pulmonary embolism Consultations: Pulmonary-Dr. Henriquez Procedures: CT Chest: Right upper and lower lobe pulmonary embolic disease. No pericardial effusion or cardiac strain. No pleural effusion noted. 10/01/2019 ECHO: Ejection fraction 52% LEFT VENTRICULAR WALL MOTION: NORMAL DOPPLER/COLOR FLOW: NORMAL COMMENTS: NORMAL TWO DIMENSIONAL ECHOCARDIOGRAM WITH DOPPLER 10/01/2019 Cardiac stress test: FINDINGS: No stress induced ischemic defect is seen to suggest stress induced ischemia. No fixed defect is seen to suggest hibernating myocardium or scarred myocardium. The end diastolic volume is 105 ml, the end systolic volume is 52 ml, and the ejection fraction is 50 %. IMPRESSION: No stress induced ischemia. Medical Problem List: Recurrent pulmonary embolism to the right upper and lower lobe with poor compliance Hypertension Hyperlipidemia Chronic pain Depression with anxiety COPD History CVA Diabetes mellitus type 2 Brief History of Present Illness: 53-year-old male presented to the emergency room after he was told by his PCP to go to the ER due to pulmonary embolism. Patient was recently evaluated for chest pain last week. He had an echocardiogram and cardiac stress test both unremarkable. Patient with history of pulmonary embolism. He was previously on Coumadin for many years. This was transitioned to Xarelto about a year ago. Over the past several months he has been without Xarelto. This was recently restarted to 10 mg daily on his last hospitalization last week. He came to the ER as the repeat CT scan done by the [facility] after his hospitalization was positive for pulmonary embolism. Patient was admitted for further evaluation. Hospital Course: Patient presented with recurrent pulmonary embolism to the right lower and upper lobe. Patient with history of pulmonary embolism in the past. He was treated with Coumadin for many years. This was transitioned to Xarelto about a year ago. He had been without medication for several months. Recently he was restarted on Xarelto 10 mg daily last week after his hospitalization for chest pain. Echocardiogram and cardiac stress tests done at that time was unremarkable. Patient had follow up CT chest done by the [facility] late last week. It showed recurrence of pulmonary embolism. Patient was told to go to the ER. Recheck CT scan at this time confirms pulmonary embolism. Patient was seen and evaluated by pulmonology. Patient without significant respiratory distress. No heart strain noted. At this time patient will continue with Xarelto 15 mg 1 pill twice daily for 3 weeks then transition to 20 mg daily for 3-6 months. After that time Xarelto can be adjusted further to 10 mg daily. Recommend to follow up with pulmonology within the next couple of days to follow up this hospitalization and continue his care. Pulmonology will continue to further monitor and address. Patient with hypertension. At discharge patient will continue with Norvasc 10 mg daily and lisinopril hydrochlorothiazide 20/25 mg daily. Patient also takes potassium supplementation since he is taking hydrochlorothiazide. Metoprolol XL 50 mg daily was added for better blood pressure control. Patient will continue with these medications. Recommend blood pressure to remain less than 150/80. Further adjustment can be done by his PCP. Patient with history of CVA and hyperlipidemia. At discharge he will continue with niacin 500 mg daily and Crestor 40 mg daily. Aspirin 81 mg has been discontinued since the patient will be on Xarelto. Patient with history of depression and anxiety. At discharge she will continue with Celexa 40 mg daily. Patient with chronic pain. At discharge he will continue with hydrocodone and Flexeril as needed. Recommend to follow up with pain management to further address and manage. Patient with diabetes mellitus type 2. Patient will continue with his medications. Recommend to maintain blood sugars less 140 fasting and less than 200 after meals. Further adjustment can be done by his PCP. Vital Signs/Physical Exam: Temp Pulse Resp BP Pulse Ox 97.8 F 63 20 124/67 98 10/13/19 08:00 10/13/19 09:00 10/13/19 09:31 10/13/19 09:00 10/13/19 09:31 General: Alert, In no apparent distress, Oriented x3, Cooperative HEENT: Atraumatic Neck: Supple Respiratory: Clear to auscultation bilaterally, Normal air movement Cardiovascular: Normal pulses, Regular rate/rhythm Gastrointestinal: Normal bowel sounds, Soft and benign, Non-distended, No tenderness, No masses, No rebound, No guarding Musculoskeletal: No erythema, No tenderness, No warmth Integumentary: No tenderness/swelling, No erythema, No warmth, No cyanosis Neurological: Normal speech, Normal strength at 5/5 x4 extr, Normal tone, Normal affect Laboratory Data at Discharge: WBC 6.6 K/uL (4.3-10.9) D 10/13/19 01:18 Hgb 13.8 g/dL (13.6-17.9) 10/13/19 01:18 Hct 40.6 % (39.6-49.0) 10/13/19 01:18 Plt Count 188 K/uL (152-406) 10/13/19 01:18 PT 12.8 SECONDS (9.5-12.5) H 10/13/19 01:18 INR 1.09 10/13/19 01:18 Sodium 141 mmol/L (136-145) 10/13/19 01:18 Potassium 3.6 mmol/L (3.5-5.1) 10/13/19 01:18 BUN 10 mg/dL (7-18) 10/13/19 01:18 Creatinine 1.25 mg/dL (0.55-1.3) 10/13/19 01:18 Glucose 213 mg/dL (74-106) H 10/13/19 01:18 Magnesium 2.1 mg/dL (1.8-2.4) 10/13/19 01:18 Total Bilirubin 0.5 mg/dL (0.2-1.0) 10/13/19 01:18 AST 29 U/L (15-37) 10/13/19 01:18 ALT 77 U/L (12-78) 10/13/19 01:18 Alkaline Phosphatase 71 U/L (45-117) 10/13/19 01:18 Lipase Cancelled 10/13/19 01:23 Home Medications: Omeprazole [Prilosec] 20 mg PO DAILY 07/13/13 Clobetasol Propionate/Emoll [Clobetasol Emollient 0.05% Crm] 1 appl TP BIDP PRN 06/12/15 Amlodipine Besylate 10 mg PO DAILY 09/30/19 Cetirizine HCl 10 mg PO DAILY PRN 09/30/19 Cholecalciferol (Vitamin D3) [Vitamin D3] 1,000 unit PO DAILY 09/30/19 Citalopram [Celexa*] 40 mg PO DAILY 09/30/19 Combivent 14.7gm 1 spray IH QIDP PRN 09/30/19 Cyclobenzaprine [Flexeril*] 10 mg PO TID PRN 09/30/19 Fluticasone [Flonase 50MCG Nasal [place]*] 2 sprays NS DAILY PRN 09/30/19 Hydrocodone 5/APAP 325 [[place] 5/325*] 1 tab PO QIDP PRN 09/30/19 Lisinopril/Hydrochlorothiazide [Lisinopril-Hctz 20-25 mg Tab] 1 tab PO DAILY Niacin 500 mg PO BEDTIME 09/30/19 Potassium Chloride 10 meq PO DAILY 09/30/19 Rosuvastatin [Crestor*] 40 mg PO BEDTIME 09/30/19 Vardenafil HCl 10 mg PO PRN PRN 09/30/19 Metoprolol Succinate [Toprol Xl*] 50 mg PO [id number] #30 tab 10/13/19 Rivaroxaban [Xarelto] 1 each PO SEECOM #1 tab.ds.pk 10/13/19 New Medications: Metoprolol Succinate [Toprol Xl*] 50 mg PO [id number] #30 tab Rivaroxaban [Xarelto] 1 each PO SEECOM #1 tab.ds.pk Patient Discharge Instructions: 1. Recommend a follow up with his PCP in 1 week to follow up this hospitalization. 2. Patient presented with recurrent pulmonary embolism to the right lower and upper lobe. Patient with history of pulmonary embolism in the past. He was treated with Coumadin for many years. This was transitioned to Xarelto about a year ago. He had been without medication for several months. Recently he was restarted on Xarelto 10 mg daily last week after his hospitalization for chest pain. Echocardiogram and cardiac stress tests done at that time was unremarkable. Patient had follow up [facility]. It showed recurrence of pulmonary embolism. Patient was told to go to the ER. Recheck CT scan at this time confirms pulmonary embolism. Patient was seen and evaluated by pulmonology. Patient without significant respiratory distress. No heart strain noted. At this time patient will continue with Xarelto 15 mg 1 pill twice daily for 3 weeks then transition to 20 mg daily for 3-6 months. After that time Xarelto can be adjusted further to 10 mg daily. Recommend to follow up with pulmonology within the next couple of days to follow up this hospitalization and continue his care. Pulmonology will continue to further monitor and address. 3. Patient with hypertension. At discharge patient will continue with Norvasc 10 mg daily and lisinopril hydrochlorothiazide 20/25 mg daily. Patient also takes potassium supplementation since he is taking hydrochlorothiazide. Metoprolol XL 50 mg daily was added for better blood pressure control. Patient will continue with these medications. Recommend blood pressure to remain less than 150/80. Further adjustment can be done by his PCP. 4. Patient with history of CVA and hyperlipidemia. At discharge he will continue with niacin 500 mg daily and Crestor 40 mg daily. Aspirin 81 mg has been discontinued since the patient will be on Xarelto. 5. Patient with history of depression and anxiety. At discharge she will continue with Celexa 40 mg daily. 6. Patient with chronic pain. At discharge he will continue with hydrocodone and Flexeril as needed. Recommend to follow up with pain management to further address and manage. 7. Patient with diabetes mellitus type 2. Patient will continue with his medications. Recommend to maintain blood sugars less 140 fasting and less than 200 after meals. Further adjustment can be done by his PCP. Diet: AHA Activity: Ad ruperto Time spent managing pt's care (in minutes): 55
[2019-10-13] MEDS ORDERED: RIVAROXABAN 15 MG TABLET PO SCH (12:00)
--- NOTE | 2019-10-13 15:13 | ER ---
Nurse's Notes [facility] Name: Nick Castro Age: 53 yrs Sex: Male : 1965 Arrival Date: 10/13/2019 Time: 00:47 Bed 15 Private MD: Diagnosis: Chest pain on breathing;Dyspnea;Essential (primary) hypertension;Personal history of pulmonary embolism;Pulmonary embolism-right upper and right lower Presentation: 10/13 01:10 Presenting complaint: Patient states: 3 weeks ago I started having chest pain, and jb4 shortness of breath. I came here and the CT scan said I was negative for PE's and then went to the [place] and the CT said I was positive for PE and blood clots and that I needed to get to the nearest hospital. 01:10 Method Of Arrival: Ambulatory jb4 01:10 Transition of care: patient was not received from another setting of care. Onset of jb4 symptoms was September 22, 2019. Risk Assessment: Do you want to hurt yourself or someone else? Patient reports no desire to harm self or others. Initial Sepsis Screen: Does the patient meet any 2 criteria? No. Patient's initial sepsis screen is negative. Does the patient have a suspected source of infection? No. Patient's initial sepsis screen is negative. Care prior to arrival: None. 01:10 Acuity: PARMJIT 3 jb4 Historical: - Allergies: 01:10 No Known Allergies; jb4 - Home Meds: 01:10 niacin 100 mg Oral tab 1 tab 2 times per day [Active]; amlodipine 10 mg tab 1 tab once jb4 daily [Active]; aspirin 81 mg Oral chew 1 tab once daily [Active]; cetirizine 10 mg oral tab 1 tab once daily [Active]; cholecalciferol (vitamin D3) 1,000 unit oral tab daily [Active]; citalopram 40 mg tab 1 tab once daily [Active]; clobetasol 0.05 % Topical crea [Active]; Combivent 18-103 mcg/actuation Inhl aero 2 puffs 4 times per day [Active]; cyclobenzaprine 10 mg Oral tab 3 times per day [Active]; fluticasone inhalation 50mcg inhalation [Active]; hydrocodone-acetaminophen 5-325 mg Oral tab 1 tab every 6 hours [Active]; omeprazole 20 mg Oral cpDR 1 cap 2 times per day [Active]; rosuvastatin 40 mg oral tab 1 tab once daily [Active]; vardenafil oral 20mg oral 0.5 tab before sex [Active]; lisinopril hctz 20mg daily [Active]; potassium chloride 10 mEq Oral TbER 1 tab once daily [Active]; Xarelto 10 mg oral tab 1 tab once daily [Active]; - PMHx: 01:10 AAA; Depression; Diabetes - NIDDM; High Cholesterol; Hypertension; PE; PTSD; CHF; jb4 Hernia; Anxiety; - PSHx: 01:10 Right Foot surgery; Hernia repair; lipoma removed from rib cage; abd mesh implant; R jb4 Radius repair x9; - Immunization history:: Adult Immunizations unknown. - Social history:: Smoking status: Patient/guardian denies using tobacco, Patient/guardian denies using alcohol, street drugs. - Family history:: not pertinent. - Ebola Screening: : No symptoms or risks identified at this time. Screenin:10 Abuse screen: Denies threats or abuse. Nutritional screening: No deficits noted. jb4 Tuberculosis screening: No symptoms or risk factors identified. Fall Risk None identified. Assessment: 01:10 General: Appears in no apparent distress. uncomfortable, Behavior is calm, cooperative, jb4 appropriate for age. Pain: Complains of pain in chest. Neuro: Level of Consciousness is awake, alert, obeys commands, Oriented to person, place, time, situation. Cardiovascular: Patient's skin is warm and dry. Rhythm is sinus rhythm. Respiratory: Airway is patent Respiratory effort is even, unlabored, Respiratory pattern is regular, symmetrical, Breath sounds are clear bilaterally. GI: No signs and/or symptoms were reported involving the gastrointestinal system. : No signs and/or symptoms were reported regarding the genitourinary system. EENT: No signs and/or symptoms were reported regarding the EENT system. Derm: Skin is intact, Skin is pink, warm \T\ dry. Musculoskeletal: Circulation, motion, and sensation intact. Range of motion:. 02:00 Reassessment: Patient appears in no apparent distress at this time. Patient and/or jb4 family updated on plan of care and expected duration. Pain level reassessed. Patient is alert, oriented x 3, equal unlabored respirations, skin warm/dry/pink. 03:00 Reassessment: Patient appears in no apparent distress at this time. Patient and/or jb4 family updated on plan of care and expected duration. Pain level reassessed. Patient is alert, oriented x 3, equal unlabored respirations, skin warm/dry/pink. PT admitted to ER hold. Vital Signs: 01:10 BP 159 / 114; Pulse 70; Resp 18; Temp 97.9(O); Pulse Ox 97% on R/A; Weight 110.22 kg jb4 (R); Height 5 ft. 11 in. (180.34 cm) (R); Pain 9/10; 03:00 BP 151 / 92; Pulse 89; Resp 16; Pulse Ox 98% on R/A; jb4 01:10 Body Mass Index 33.89 (110.22 kg, 180.34 cm) [facility] ED Course: 00:47 Patient arrived in ED. cl3 00:50 Mike Sumner MD is Attending Physician. alejo 01:10 Arm band placed on. jb4 01:10 Patient has correct armband on for positive identification. Bed in low position. Call [facility] light in reach. Side rails up X 1. laboratory monitor on. Pulse ox on. NIBP on. 01:21 Salvador Wilson MD is Hospitalizing Provider. [facility] 01:28 Bora Barrow RN is Primary Nurse. jb4 01:30 Triage completed. jb4 01:38 Initial lab(s) drawn, by tx, sent to lab. First set of blood cultures drawn Second set kj1 of blood cultures drawn. 01:41 Inserted saline lock: 22 gauge in right antecubital area, using aseptic technique. kj1 02:53 No provider procedures requiring assistance completed. Patient admitted, IV remains in jb4 place. Administered Medications: 02:46 Drug: NS 0.9% 1000 ml Route: IV; Rate: 1 bolus; Site: right antecubital; jb4 02:52 Follow up: Response: No adverse reaction; IV Status: Infusion continued upon admission [facility] Outcome: 01:22 Decision to Hospitalize by Provider. alejo 02:53 Admitted to ER Hold. Please see [facility] for further documentation. jb4 02:53 Condition: stable 02:53 Discharge instructions given to patient, Instructed on the need for admit, Demonstrated understanding of instructions. 15:12 Patient left the ED. ph Signatures: Mike Sumner MD MD cha Hall, Patricia, RN RN ph Bora Barrow RN RN jb4 Sydnie Montano kj1 Liban Tenorio cl3 Corrections: (The following items were deleted from the chart) 02:53 01:10 Respiratory: Airway is patent Respiratory effort is even, unlabored, Respiratory jb4 pattern is regular, symmetrical, jb4
[2019-10-13 15:51] VITALS: BP 124/64; TEMP 97.4
[2019-10-13] MEDS ORDERED: RIVAROXABAN 20 MG TABLET PO SCH (17:00)
[2019-10-13] MEDS ORDERED: ROSUVASTATIN 10 MG TAB PO SCH (21:00)
[2019-10-13] MEDS ORDERED: HOME MED 1 EA UNK (Niacin [Niacin] 500 MG) PO SCH (21:00)
[2019-10-13] MEDS ORDERED: NIACIN 500 MG SR TAB PO SCH (21:00)
--- NOTE | 2019-10-15 14:43 | RAD REPORT ---
EXAM DESCRIPTION: CT - Chest For Pe Angio - 10/13/2019 7:11 am CLINICAL HISTORY: CHEST PAIN TECHNIQUE: Contiguous axial images obtained through the chest during angiographic phase following th e uneventful administration of IV contrast. Sagittal and coronal reformatted images were provided. FL P reformatted images were provided. This exam was performed according to our departmental dose-optimization program, which includes autom ated exposure control, adjustment of the mA and/or kV according to patient size and/or use of iterati ve reconstruction technique. COMPARISON: No prior exams provided for comparison. FINDINGS: Diagnostic quality: There is good opacification of the pulmonary arterial tree. Motion art ifact degrades image quality and limits evaluation of segmental and subsegmental vessels. Lungs: Minimal bibasilar subsegmental atelectasis/pleural parenchymal scar. No focal consolidation. A irways are patent. Pleura: No effusion. No pneumothorax. Heart and pericardium: The heart is normal in size. No pericardial effusion. Mediastinum and enzo: No pathologically enlarged lymph nodes. Lower neck and chest wall: Unremarkable Vessels: Scattered segmental and subsegmental right upper and lower lobe pulmonary arterial filling d efects. Minimal atherosclerotic disease. No thoracic aortic aneurysm. Upper abdomen: Moderate gastric distention. Bones: Minimal multilevel spondylosis. No acute fracture. IMPRESSION: 1. Right upper and lower lobe pulmonary embolic disease. 2. Other findings as above. THIS REPORT CONTAINS FINDINGS THAT MAY BE CRITICAL TO PATIENT CARE: The findings were verbally discu ssed via telephone conference with Dr. Mike Sumner on 10/13/2019 2:56 AM SKI TOW OPERATOR. The results were ackn owledged and understood. Electronically signed by: Fabi Mills MD 10/13/2019 2:59 AM SKI TOW OPERATOR Due to temporary technical issues with the PACS/Fluency reporting system, reports are being signed by the in house radiologist as a courtesy to ensure prompt reporting. The interpreting radiologist is f ully responsible for the content of the report.
== END 2019-10-13 15:15 | disposition home or self-care (01) ==
LOC: ER 00:45 → ERHOLD 02:00
PROVIDERS: ADMIT Hospitalist; ATTEND Hospitalist
DX: I26.99 Other pulmonary embolism without acute cor pulmonale (principal); E78.5 Hyperlipidemia, unspecified; G89.29 Other chronic pain; F41.8 Other specified anxiety disorders; I11.0 Hypertensive heart disease with heart failure; I50.9 Heart failure, unspecified; J44.9 Chronic obstructive pulmonary disease, unspecified; E11.9 Type 2 diabetes mellitus without complications; Z91.19 Patient's noncompliance with other medical treatment and regimen; Z86.73 Personal history of transient ischemic attack (TIA), and cerebral infarction without residual deficits; Z79.82 Long term (current) use of aspirin; I25.2 Old myocardial infarction
CPT/HCPCS: 93005; 87040 ×2; 85025; 80048; 36415; 83735; 85610; 80076; 81003; 84484; 83690; 83880; 87804 ×2; 71275; 71046; 99285; Q9967; J7030; G0378 ×2

== ENCOUNTER 2019-10-15 01:24 | Observation (INO) | payer OTHER ==
[2019-10-15 02:03] LABS: Absolute Lymphocytes (CBC) 1.8 K/uL (0.7-4.9); Basophils % 0.9 % (0-1.3); Hematocrit 41.2 % (39.6-49.0); Lymphocytes % 32.2 % (15.3-44.8); MPV 11.1 fL (7.6-11.3); RBC Red Blood Cell Count 4.77 M/uL (4.33-5.43)
[2019-10-15 02:07] LABS: Protime INR 1.4
[2019-10-15 02:25] LABS: ALT/SGPT 63 U/L (12-78); AST/SGOT 23 U/L (15-37); Albumin 3.5 g/dL (3.4-5.0); Alkaline Phosphatase 68 U/L (45-117); BUN Blood Urea Nitrogen 13 mg/dL (7-18); Bicarbonate 29 mmol/L (21-32); Bilirubin Direct 0.1 mg/dL (0-0.2); Bilirubin Total 0.4 mg/dL (0.2-1.0); Glucose Level 119 mg/dL (74-106); Magnesium 2.2 mg/dL (1.8-2.4); NT PRO-BNP 17 pg/mL (<125); Potassium 3.8 mmol/L (3.5-5.1); Protein, Total 7.4 g/dL (6.4-8.2); Sodium Level 141 mmol/L (136-145); Troponin (Emerg Dept Use Only) < 0.02 ng/mL (0.0-0.045)
--- NOTE | 2019-10-15 03:10 | ER ---
Nurse's Notes [facility] Name: Nick Castro Age: 53 yrs Sex: Male : 1965 Arrival Date: 10/15/2019 Time: 01:27 Bed 6 Private MD: Diagnosis: Hemoptysis Presentation: 10/15 01:34 Presenting complaint: Patient states: he was here a couple days ago and was diagnosed aa1 with a PE and was started on Eliquis and tonight he began to have bright red blood in his sputum. Transition of care: patient was not received from another setting of care. Onset of symptoms was October 15, 2019. Risk Assessment: Do you want to hurt yourself or someone else? Patient reports no desire to harm self or others. Initial Sepsis Screen: Does the patient meet any 2 criteria? No. Patient's initial sepsis screen is negative. Does the patient have a suspected source of infection? No. Patient's initial sepsis screen is negative. Care prior to arrival: None. 01:34 Method Of Arrival: Ambulatory aa1 01:34 Acuity: PARMJIT 3 aa1 Triage Assessment: 01:38 General: Appears in no apparent distress. comfortable, Behavior is calm, cooperative, aa1 appropriate for age. Historical: - Allergies: 01:38 No Known Allergies; aa1 - Home Meds: 01:38 amlodipine 10 mg tab 1 tab once daily [Active]; aspirin 81 mg Oral chew 1 tab once aa1 daily [Active]; atorvastatin 20 mg Oral tab 1 tab once daily [Active]; cetirizine 10 mg Oral tab 1 tab once daily [Active]; cholecalciferol (vitamin D3) 1,000 unit Oral tab daily [Active]; citalopram 40 mg tab 1 tab once daily [Active]; clobetasol 0.05 % Topical crea [Active]; Combivent 18-103 mcg/actuation Inhl aero 2 puffs 4 times per day [Active]; cyclobenzaprine 10 mg Oral tab 3 times per day [Active]; fluticasone 50mcg inhalation [Active]; lisinopril hctz 20mg daily [Active]; niacin 100 mg Oral tab 1 tab 2 times per day [Active]; hydrocodone-acetaminophen 5-325 mg Oral tab 1 tab every 6 hours [Active]; omeprazole 20 mg Oral cpDR 1 cap 2 times per day [Active]; potassium chloride 10 mEq Oral TbER 1 tab once daily [Active]; rosuvastatin 40 mg Oral tab 1 tab once daily [Active]; vardenafil 20mg Oral 0.5 tab before sex [Active]; Eliquis 5 mg oral tab 1 tab 2 times per day [Active]; - PMHx: 01:38 AAA; Anxiety; CHF; Depression; Diabetes - NIDDM; Hernia; High Cholesterol; aa1 Hypertension; PE; PTSD; - PSHx: 01:38 Right Foot surgery; Hernia repair; lipoma removed from rib cage; abd mesh implant; R aa1 Radius repair x9; - Immunization history:: Flu vaccine is not up to date. - Social history:: Smoking status: Patient/guardian denies using tobacco, Patient/guardian denies using alcohol. - Ebola Screening: : Patient denies exposure to infectious person Patient denies travel to an Ebola-affected area in the 21 days before illness onset. Screenin:50 Abuse screen: Denies threats or abuse. Nutritional screening: No deficits noted. jb4 Tuberculosis screening: No symptoms or risk factors identified. Fall Risk None identified. Assessment: 01:50 General: Appears in no apparent distress. uncomfortable, Behavior is calm, cooperative, jb4 appropriate for age. Pain: Complains of pain in chest Pain does not radiate. Pain currently is 9 out of 10 on a pain scale. Neuro: Level of Consciousness is awake, alert, obeys commands, Oriented to person, place, time, situation. Cardiovascular: Patient's skin is warm and dry. Rhythm is sinus rhythm. Respiratory: Reports shortness of breath on exertion cough that is productive, persistent PT reports having bloody sputum today after starting eliquis. Airway is patent Respiratory effort is even, unlabored, Respiratory pattern is regular, symmetrical, Breath sounds are clear bilaterally. GI: No signs and/or symptoms were reported involving the gastrointestinal system. : No signs and/or symptoms were reported regarding the genitourinary system. EENT: No signs and/or symptoms were reported regarding the EENT system. Derm: Skin is intact, Skin is dry, Skin is normal, Skin temperature is warm. Musculoskeletal: Circulation, motion, and sensation intact. Range of motion: intact in all extremities. 02:38 Reassessment: Patient appears in no apparent distress at this time. Patient and/or jb4 family updated on plan of care and expected duration. Pain level reassessed. Patient is alert, oriented x 3, equal unlabored respirations, skin warm/dry/pink. 03:58 Reassessment: Patient appears in no apparent distress at this time. Patient and/or jb4 family updated on plan of care and expected duration. Pain level reassessed. PT is resting in bed with eyes closed, respirations are even and unlabored. No s/s of distress or pain noted. 04:50 Reassessment: Patient appears in no apparent distress at this time. Patient and/or jb4 family updated on plan of care and expected duration. Pain level reassessed. Patient is alert, oriented x 3, equal unlabored respirations, skin warm/dry/pink. PT transferred upstairs via wheelchair. On oxygen, IV saline lock. Vital Signs: 01:38 BP 151 / 119; Pulse 84; Resp 18; Temp 98.8; Pulse Ox 97% on R/A; Weight 110.68 kg; aa1 Height 5 ft. 11 in. (180.34 cm); Pain 9/10; 02:38 BP 148 / 108; Pulse 71; Resp 18; Pulse Ox 96% on 2 lpm NC; jb4 03:58 BP 153 / 106; Pulse 69; Resp 18; Pulse Ox 96% on 2 lpm NC; jb4 04:30 BP 157 / 105; Pulse 60; Resp 18; Pulse Ox 98% on 2 lpm NC; ea 01:38 Body Mass Index 34.03 (110.68 kg, 180.34 cm) aa1 ED Course: 01:27 Patient arrived in ED. jg7 01:29 Raúl Roberto MD is Attending Physician. tw4 01:30 Benjie Mustafa, RN is Primary Nurse. rv 01:30 Bora Barrow, RN is Primary Nurse. jb4 01:35 Triage completed. aa1 01:38 Arm band placed on right wrist. Patient placed in an exam room, on a stretcher. aa1 01:50 Patient has correct armband on for positive identification. Placed in gown. Bed in low jb4 position. Call light in reach. Side rails up X 1. ekg monitor tech on. Pulse ox on. NIBP on. 01:50 Initial lab(s) drawn, by me, sent to lab. Inserted saline lock: 20 gauge in right Blood jb4 collected. 01:53 EKG done, by ED staff, reviewed by Raúl Roberto MD. ea 03:09 Patricia Ovalle MD is Hospitalizing Provider. tw4 03:30 XRAY Chest (1 view) In Process Unspecified. EDMS 04:49 No provider procedures requiring assistance completed. Patient admitted, IV remains in ea place. Administered Medications: No medications were administered Outcome: 03:10 Decision to Hospitalize by Provider. tw4 03:45 Instructed on the need for admit. ea 04:49 Admitted to Med/surg accompanied by nurse, via wheelchair, room 402, with oxygen, with ea chart, Report called to Receiving nurse on fourth floor 04:49 Condition: stable 04:50 Patient left the ED. ea Signatures: Dispatcher [employer] EDPR Radha Ya RN RN aa1 Bora Barrow RN RN jb4 Elysia Miranda RN Raúl Vieira ea, MD MD tw4 Benjie Mustafa, RN RN Rachel Hodgson jg7 Corrections: (The following items were deleted from the chart) 04:49 04:30 BP 157 / 105; Pulse 60bpm; Resp 18bpm; Pulse Ox 99% RA; love aleman
--- NOTE | 2019-10-15 03:11 | EDPHYS ---
Physician Documentation [facility] Name: Nick Castro Age: 53 yrs Sex: Male : 1965 Arrival Date: 10/15/2019 Time: 01:27 Bed 6 Private MD: ED Physician Raúl Roberto HPI: 10/15 01:46 This 53 yrs old Black Male presents to ER via Ambulatory with complaints of SPITTING UP tw4 BLOOD. 01:46 The patient or guardian reports cough, with productive sputum, that is bloody. Onset: tw4 The symptoms/episode began/occurred today. Severity of symptoms: At their worst the symptoms were moderate, in the emergency department the symptoms have resolved. Modifying factors: The symptoms are alleviated by nothing, the symptoms are aggravated by nothing. The patient has not experienced similar symptoms in the past. Historical: - Allergies: 01:38 No Known Allergies; aa1 - Home Meds: 01:38 amlodipine 10 mg tab 1 tab once daily [Active]; aspirin 81 mg Oral chew 1 tab once aa1 daily [Active]; atorvastatin 20 mg Oral tab 1 tab once daily [Active]; cetirizine 10 mg Oral tab 1 tab once daily [Active]; cholecalciferol (vitamin D3) 1,000 unit Oral tab daily [Active]; citalopram 40 mg tab 1 tab once daily [Active]; clobetasol 0.05 % Topical crea [Active]; Combivent 18-103 mcg/actuation Inhl aero 2 puffs 4 times per day [Active]; cyclobenzaprine 10 mg Oral tab 3 times per day [Active]; fluticasone 50mcg inhalation [Active]; lisinopril hctz 20mg daily [Active]; niacin 100 mg Oral tab 1 tab 2 times per day [Active]; hydrocodone-acetaminophen 5-325 mg Oral tab 1 tab every 6 hours [Active]; omeprazole 20 mg Oral cpDR 1 cap 2 times per day [Active]; potassium chloride 10 mEq Oral TbER 1 tab once daily [Active]; rosuvastatin 40 mg Oral tab 1 tab once daily [Active]; vardenafil 20mg Oral 0.5 tab before sex [Active]; Eliquis 5 mg oral tab 1 tab 2 times per day [Active]; - PMHx: 01:38 AAA; Anxiety; CHF; Depression; Diabetes - NIDDM; Hernia; High Cholesterol; aa1 Hypertension; PE; PTSD; - PSHx: 01:38 Right Foot surgery; Hernia repair; lipoma removed from rib cage; abd mesh implant; R aa1 Radius repair x9; - Immunization history:: Flu vaccine is not up to date. - Social history:: Smoking status: Patient/guardian denies using tobacco, Patient/guardian denies using alcohol. - Ebola Screening: : Patient denies exposure to infectious person Patient denies travel to an Ebola-affected area in the 21 days before illness onset. ROS: 01:46 Constitutional: Negative for fever, chills, and weight loss, Eyes: Negative for injury, tw4 pain, redness, and discharge, ENT: Negative for injury, pain, and discharge, Cardiovascular: Negative for chest pain, palpitations, and edema, Abdomen/GI: Negative for abdominal pain, nausea, vomiting, diarrhea, and constipation, Back: Negative for injury and pain, MS/Extremity: Negative for injury and deformity, Skin: Negative for injury, rash, and discoloration, Neuro: Negative for headache, weakness, numbness, tingling, and seizure. 01:46 Respiratory: Positive for cough, hemoptysis, Negative for dyspnea on exertion, orthopnea, pleurisy, shortness of breath, sputum production, wheezing. Exam: 01:46 Constitutional: This is a well developed, well nourished patient who is awake, alert, tw4 and in no acute distress. Head/Face: Normocephalic, atraumatic. Chest/axilla: Normal chest wall appearance and motion. Nontender with no deformity. No lesions are appreciated. Cardiovascular: Regular rate and rhythm with a normal S1 and S2. No gallops, murmurs, or rubs. Normal PMI, no JVD. No pulse deficits. Respiratory: Lungs have equal breath sounds bilaterally, clear to auscultation and percussion. No rales, rhonchi or wheezes noted. No increased work of breathing, no retractions or nasal flaring. Abdomen/GI: Soft, non-tender, with normal bowel sounds. No distension or tympany. No guarding or rebound. No evidence of tenderness throughout. Back: No spinal tenderness. No costovertebral tenderness. Full range of motion. MS/ Extremity: Pulses equal, no cyanosis. Neurovascular intact. Full, normal range of motion. Neuro: Awake and alert, GCS 15, oriented to person, place, time, and situation. Cranial nerves II-XII grossly intact. Motor strength 5/5 in all extremities. Sensory grossly intact. Cerebellar exam normal. Normal gait. Vital Signs: 01:38 BP 151 / 119; Pulse 84; Resp 18; Temp 98.8; Pulse Ox 97% on R/A; Weight 110.68 kg; aa1 Height 5 ft. 11 in. (180.34 cm); Pain 07/16; 02:38 BP 148 / 108; Pulse 71; Resp 18; Pulse Ox 96% on 2 lpm NC; jb4 03:58 BP 153 / 106; Pulse 69; Resp 18; Pulse Ox 96% on 2 lpm NC; jb4 04:30 BP 157 / 105; Pulse 60; Resp 18; Pulse Ox 98% on 2 lpm NC; ea 01:38 Body Mass Index 34.03 (110.68 kg, 180.34 cm) aa1 MDM: 01:37 Patient medically screened. 10/15 01:37 Order name: Basic Metabolic Panel; Complete Time: 02:33 10/15 01:37 Order name: CBC with Diff; Complete Time: 02:33 10/15 01:37 Order name: LFT's; Complete Time: 02:33 10/15 01:37 Order name: Magnesium; Complete Time: 02:33 10/15 01:37 Order name: NT PRO-BNP; Complete Time: 02:33 10/15 01:37 Order name: PT-INR; Complete Time: 02:33 10/15 01:37 Order name: Troponin (emerg Dept Use Only); Complete Time: 02:33 10/15 01:37 Order name: Ptt, Activated; Complete Time: 02:33 10/15 04:17 Order name: Magnesium EDMS 10/15 04:17 Order name: Thyroid Stimulating Hormone EDMS 10/15 04:17 Order name: CBC with Automated Diff EDMS 10/15 04:17 Order name: CBC with Automated Diff EDMS 10/15 04:17 Order name: Comprehensive Metabolic Panel EDMS 10/15 04:17 Order name: Comprehensive Metabolic Panel EDMS 12/10 01:37 Order name: XRAY Chest (1 view) tw4 10/15 01:37 Order name: EKG; Complete Time: 01:39 tw4 10/15 01:37 Order name: Cardiac monitoring; Complete Time: :59 tw4 10/15 01:37 Order name: EKG - Nurse/Tech; Complete Time: 01:52 tw4 10/15 01:37 Order name: IV Saline Lock; Complete Time: :59 tw4 10/15 01:37 Order name: Labs collected and sent; Complete Time: :59 tw4 10/15 01:37 Order name: O2 Per Protocol; Complete Time: :59 tw4 10/15 01:37 Order name: O2 Sat Monitoring; Complete Time: :59 tw4 10/15 04:16 Order name: CONS Physician Consult EDND 10/15 04:16 Order name: Consistent Carb (ADA) 2000 [place] EDMS 10/15 04:17 Order name: Comprehensive Metabolic Panel EDND 10/15 04:17 Order name: Protime (+INR) EDND 10/15 04:17 Order name: Protime (+INR) EDND 10/15 04:17 Order name: Protime (+INR) EDND 10/15 04:21 Order name: CBC with Automated Diff EDMS EC:46 Rate is 89 beats/min. Rhythm is regular. QRS [place] is Normal. DC interval is normal. QRS tw4 interval is normal. QT interval is normal. No Q waves. T waves are Inverted in leads II, III, aVF, V6. No ST changes noted. Clinical impression: NSR w/ Non-specific ST/T Changes. Interpreted by me. Reviewed by me. Administered Medications: No medications were administered Disposition: 10/15/19 03:10 Hospitalization ordered by Patricia Ovalle for Inpatient Admission. Preliminary diagnosis is Hemoptysis. - Bed requested for Telemetry/MedSurg (Inpatient). - Status is Inpatient Admission. ea - Condition is Stable. - Problem is new. - Symptoms have improved. UTI on Admission? No Signatures: Dispatcher [employer] EDND Janina Nova RN RN mw Autenrieth, Alissa, RN RN aa1 Elysia Miranda RN RN ea Wadley, Terrence, MD MD tw4 Corrections: (The following items were deleted from the chart) 03:32 03:10 Hospitalization Ordered by Patricia Ovalle MD for Inpatient Admission. Preliminary mw diagnosis is Hemoptysis. Bed requested for Telemetry/MedSurg (Inpatient). Status is Inpatient Admission. Condition is Stable. Problem is new. Symptoms have improved. UTI on Admission? No. tw4 04:50 03:32 10/15/2019 03:10 Hospitalization Ordered by Patricia Ovalle MD for Inpatient ea Admission. Preliminary diagnosis is Hemoptysis. Bed requested for Telemetry/MedSurg (Inpatient). Status is Inpatient Admission. Condition is Stable. Problem is new. Symptoms have improved. UTI on Admission? No. mw
[2019-10-15] MEDS ORDERED: ACETAMINOPHEN 500 MG TAB PO PRN (04:14)
[2019-10-15] MEDS ORDERED: DOCUSATE NA 100 MG CAP PO PRN (04:14)
[2019-10-15] MEDS ORDERED: HYDROCODONE/APAP 5/325 MG TAB PO PRN (04:14)
[2019-10-15] MEDS ORDERED: ONDANSETRON 4 MG/2 ML VIAL IV PRN (04:14)
--- NOTE | 2019-10-15 04:23 | P.HP ---
Certification for Inpatient With expected LOS: >2 Midnights Patient will require the following post-hospital care: None Practitioner: I am a practitioner with admitting privileges, knowledge of patient current condition, hospital course, and medical plan of care. Services: Services provided to patient in accordance with Admission requirements found in Title 42 Section 412.3 of the Code of Federal Regulations Patient History Date of Service: 10/15/19 Reason for admission: coughing blood , recurrent PE History of Present Illness: ricardo virgen 53yoAAM w/ pmhx of DM, HTN, PTSD, asthma, obesity, recurrent PEs on chronic AC ( was on coumadin x 10yrs then switched to eliquis for 1 yr now), who presents to ED w/ hemotysis. He reports being seen for CP 3 weeks prior to admission, no PE noted at that time per pt and thus he was discharged. per notation patient ran out of eliquis x 3 mths and he reports having CHAMBERLAIN as well as CP similar to previous PE. 10/11 the [facility] scheduled him for outpatient CT chest for PE r/o, and monday notified pt of +new PE w/ recommendation to present to the [facility]. he presented to [facility] and was confirmed/diagnosed w/ PE oin 10/12/19 presented to the ED, PE treatment and was to be discharged w/ xarelto and thus discharged on 10/14/19 with notation that he would be taking xarelto but the patient reports that he was discharged on his home eliquis dose and medication. it is unclear which AC pt is on as he states he is on eliquis. he currently returns w / hemoptysis that started overnight. reports chest pain w/ radiation to the back , reports CHAMBERLAIN - new onset he denies tobacco, etoh and drugs. his PEs are managed by the [facility]. Allergies No Known Drug Allergies Allergy (Verified 09/30/19 18:29) Unknown No Known Allergies Allergy (Uncoded 03/27/16 04:39) Unknown Home Medications: Omeprazole [Prilosec] 20 mg PO DAILY 07/13/13 Clobetasol Propionate/Emoll [Clobetasol Emollient 0.05% Crm] 1 appl TP DAILY 05/20 Amlodipine Besylate 10 mg PO DAILY 09/30/19 Cetirizine HCl 10 mg PO DAILY PRN 09/30/19 Cholecalciferol (Vitamin D3) [Vitamin D3] 1,000 unit PO DAILY 09/30/19 Citalopram [Celexa*] 40 mg PO DAILY 09/30/19 Combivent 14.7gm 1 spray IH QIDP PRN 09/30/19 Cyclobenzaprine [Flexeril*] 10 mg PO TID PRN 09/30/19 Fluticasone [Flonase 50MCG Nasal [place]*] 2 sprays NS DAILY PRN 09/30/19 Hydrocodone 5/APAP 325 [[place] 5/325*] 1 tab PO QIDP PRN 09/30/19 Niacin 500 mg PO BEDTIME 09/30/19 Potassium Chloride 10 meq PO DAILY 09/30/19 Rosuvastatin [Crestor*] 40 mg PO BEDTIME 09/30/19 Vardenafil HCl 10 mg PO PRN PRN 09/30/19 Metoprolol Succinate [Toprol Xl*] 50 mg PO [id number] #30 tab 10/13/19 Apixaban [Eliquis *] 5 mg PO BID 10/15/19 Furosemide [Lasix*] 10 mg PO DAILY 10/15/19 - Past Medical/Surgical History Diabetic: Yes -: Conestive Heart Failure -: Non-Insulin Dependent Diabetes -: Asthma -: Sickle Cell Trait -: Hypertension -: MIx2 -: PE -: Hyperlipedemia -: Stroke x2 -: Right arm sx x9 -: Hernia Repair and mesh placement -: Lipoma removed from right rib -: right big toe, artificial knuckle -: Carpal tunel sx -: Right foot sx x2 - Family History Mother -: Lung disease, Diabetes, Cancer Notes: Lung Cancer Father -: Stroke - Social History Alcohol use: No CD- Drugs: No Caffeine use: No Review of Systems General: As per HPI, Unremarkable Eyes: Unremarkable ENT: Unremarkable Respiratory: Shortness of Breath, SOB with Excertion Cardiovascular: Chest Pain Gastrointestinal: Unremarkable Genitourinary: As per HPI, Unremarkable Musculoskeletal: Back Pain, As per HPI Integumentary: Unremarkable Neurological: Unremarkable Lymphatics: Unremarkable Physical Examination - Physical Exam General: Alert, Oriented x3, Cooperative, Obese HEENT: Atraumatic, PERRLA, Mucous membr. moist/pink Neck: Supple, No LAD Respiratory: Clear to auscultation bilaterally, Diminished (ON THE RIGHT ) Cardiovascular: No edema, Normal S1 S2, No murmurs Gastrointestinal: Soft and benign, Non-distended, No rebound, No guarding Musculoskeletal: No clubbing, No swelling, No tenderness, No warmth Integumentary: No rashes, No breakdown, No warmth Neurological: Normal speech, Normal strength at 5/5 x4 extr External genitalia: Deferred Rectal: Deferred - Studies Laboratory Data (last 24 hrs) 10/15/19 01:50: PT 16.3 H, INR 1.40, APTT 36.7 10/15/19 01:50: WBC 5.7, Hgb 13.9, Hct 41.2, Plt Count 185 10/15/19 01:50: Sodium 141, Potassium 3.8, BUN 13, Creatinine 1.20, Glucose 119 H, Magnesium 2.2, Total Bilirubin 0.4, AST 23, ALT 63, Alkaline Phosphatase 68 Assessment and Plan - Plan 53yoAAM admitted w/ recurrent PE, on eliquis and now w/ hemoptysis hold AC consult PCCM trend H/H, supplemental o2 monitor o2 sats, HR amb w/ assist, fall precaution attempting to clarify home AC therapy - which are currently on hold DM - reports diet controlled start on ADA diet start on SSI monitor FSBG HTN - elevated when evaluated in the ED needs PRN and home medications DVT ppx - hold AC SCDs. - Advance Directives Does patient have a Living Will: No Does patient have a Durable POA for Healthcare: No
[2019-10-15 05:06] VITALS: BMI 34.0
[2019-10-15 07:22] LABS: Absolute Lymphocytes (CBC) 1.7 K/uL (0.7-4.9); Basophils % 0.5 % (0-1.3); Hematocrit 39.9 % (39.6-49.0); Lymphocytes % 32.2 % (15.3-44.8); MPV 10.9 fL (7.6-11.3); RBC Red Blood Cell Count 4.59 M/uL (4.33-5.43)
[2019-10-15 07:23] LABS: Protime INR 1.45
[2019-10-15] MEDS: INSULIN -REGULAR HUMAN 50 UNIT/0.5 ML ML SQ SCH ×4 (07:30→20:17)
[2019-10-15 07:54] LABS: Albumin 3.3 g/dL (3.4-5.0); Bilirubin Total 0.5 mg/dL (0.2-1.0); Magnesium 2.2 mg/dL (1.8-2.4); Potassium 3.9 mmol/L (3.5-5.1); Protein, Total 7.1 g/dL (6.4-8.2); Thyroid Stimulating Hormone 2.03 uIU/mL (0.360-3.740)
--- NOTE | 2019-10-15 07:56 | RAD REPORT ---
EXAM DESCRIPTION: RAD - Chest Single View - 10/15/2019 3:27 am CLINICAL HISTORY: Hemoptysis, shortness of breath, history of recent PE diagnosis COMPARISON: Two-view chest October 13, CT chest October 13 TECHNIQUE: AP portable chest image was obtained 0319 hours . FINDINGS: No evidence for pulmonary hemorrhage. No failure, infiltrate or acute lung parenchymal pro cess. Interstitial pattern is not substantially different from comparison. Heart and vasculature are normal. No measurable pleural effusion and no pneumothorax. No acute bony abnormality seen. No acute aortic findings suspected. IMPRESSION: No pulmonary hemorrhage or other acute cardiopulmonary finding.
[2019-10-15] MEDS ORDERED: INFLUENZA VACCINE (for 3y+) 0.5 ML DOSE IMVAC ONE (08:00)
[2019-10-15] MEDS ORDERED: PNEUMOCOCCAL VACCINE 0.5 ML IMVAC ONE (08:00)
[2019-10-15] MEDS: CYCLOBENZAPRINE 10 MG TAB PO PRN ×2 (08:40→21:52)
[2019-10-15] MEDS: METOPROLOL XL 50 MG TAB PO SCH (08:41)
[2019-10-15] MEDS: FUROSEMIDE 20 MG TABLET PO SCH (08:42)
[2019-10-15] MEDS: VITAMIN D 1000 UNIT TAB PO SCH (08:42)
[2019-10-15] MEDS: AMLODIPINE 10 MG TAB PO SCH (08:42)
[2019-10-15] MEDS: CITALOPRAM 10 MG TABLET PO SCH (08:43)
[2019-10-15] MEDS: IPRATROPIUM BROM 0.5MG/2.5ML NEB SCH ×3 (08:57→19:50)
[2019-10-15] MEDS: ALBUTEROL 2.5 MG/3 ML NEB SOL NEB SCH ×3 (08:57→19:50)
--- NOTE | 2019-10-15 10:34 | EKG ---
Test Date: 2019-10-15 Test Time: 01:52:03 Automotive Hardware Engineer: VÍCTOR MEASUREMENT RESULTS: Intervals: Rate: 89 MT: 162 QRSD: 74 QT: 344 QTc: 418 [place]: P: 55 MT: 162 QRS: 38 T: 11 INTERPRETIVE STATEMENTS: Normal sinus rhythm Cannot rule out Anterior infarct, age undetermined Abnormal ECG Compared to ECG 10/13/2019 01:38:12 Myocardial infarct finding now present T-wave abnormality no longer present Possible ischemia no longer present Electronically Signed On 10-15-19 10:33:31 HOUSE COORDINATOR by José Luis Ram
--- NOTE | 2019-10-15 10:34 | RAD REPORT ---
EXAM DESCRIPTION: Zohra Gautam And Ben (2 Views)10/15/2019 10:24 am CLINICAL HISTORY: Hemoptysis COMPARISON: October 15, 2019 FINDINGS: The lungs appear clear of acute infiltrate. The heart is normal size IMPRESSION: No acute abnormalities displayed
[2019-10-15 11:09] LABS: Hematocrit 40.3 % (39.6-49.0)
[2019-10-15 12:03] LABS: Urine Appearance CLEAR; Urine Bilirubin NEGATIVE (NEG); Urine Blood NEGATIVE (NEG); Urine Color YELLOW; Urine Glucose NEGATIVE (NEG); Urine Protein NEGATIVE (NEG); Urine Urobilinogen 0.2 mg/dL (0.2-1.0)
[2019-10-15 12:06] LABS: Urine Microscopic Reflex NO UMIC
--- NOTE | 2019-10-15 12:31 | P.CNS ---
Date of Consult: 10/15/19 Reason for Consult: Hemoptysis Chief Complaint: Hemoptysis History of Present Illness: Patient is 53 years of age has a history of recurrent pulmonary embolism admitted with sudden onset of hemoptysis he is has some chest discomfort patient was seen in the emergency room over the weekend with a diagnosis of a recurrent pulmonary embolism he now states that he has been taking Eliquis for the past week 5 mg twice a day. He then short of my office yesterday stating that he needs anticoagulants and had given him as Xarelto packed and he told me that he has not taken the Xarelto. The coughed up any blood since admission Allergies No Known Drug Allergies Allergy (Verified 09/30/19 18:29) Unknown No Known Allergies Allergy (Uncoded 03/27/16 04:39) Unknown Home Medications: Omeprazole [Prilosec] 20 mg PO DAILY 07/13/13 Clobetasol Propionate/Emoll [Clobetasol Emollient 0.05% Crm] 1 appl TP DAILY 05/20 Amlodipine Besylate 10 mg PO DAILY 09/30/19 Cetirizine HCl 10 mg PO DAILY PRN 09/30/19 Cholecalciferol (Vitamin D3) [Vitamin D3] 1,000 unit PO DAILY 09/30/19 Citalopram [Celexa*] 40 mg PO DAILY 09/30/19 Combivent 14.7gm 1 spray IH QIDP PRN 09/30/19 Cyclobenzaprine [Flexeril*] 10 mg PO TID PRN 09/30/19 Fluticasone [Flonase 50MCG Nasal [place]*] 2 sprays NS DAILY PRN 09/30/19 Hydrocodone 5/APAP 325 [[place] 5/325*] 1 tab PO QIDP PRN 09/30/19 Niacin 500 mg PO BEDTIME 09/30/19 Potassium Chloride 10 meq PO DAILY 09/30/19 Rosuvastatin [Crestor*] 40 mg PO BEDTIME 09/30/19 Vardenafil HCl 10 mg PO PRN PRN 09/30/19 Metoprolol Succinate [Toprol Xl*] 50 mg PO [id number] #30 tab 10/13/19 Apixaban [Eliquis *] 5 mg PO BID 10/15/19 Furosemide [Lasix*] 10 mg PO DAILY 10/15/19 - Past Medical/Surgical History Diabetic: Yes -: Conestive Heart Failure -: Non-Insulin Dependent Diabetes -: Asthma -: Sickle Cell Trait -: Hypertension -: MIx2 -: PE recurrent -: Hyperlipedemia -: Stroke x2 -: HTN -: HERNIA -: PTSD, DEPRESSION -: Right arm sx x9 -: Hernia Repair and mesh placement -: Lipoma removed from right rib -: right big toe, artificial knuckle -: Carpal tunel sx -: Right foot sx x2 -: Right radius repair - Family History Mother Medical History: Lung disease, Diabetes, Cancer Notes: Lung Cancer Father Medical History: Stroke - Social History Smoking Status: Never smoker Alcohol use: No CD- Drugs: No Caffeine use: No Place of Residence: Home Review of Systems 10-point ROS is otherwise unremarkable Respiratory: Shortness of Breath, Hemoptysis, Pleuritic Pain Physical Examination Temp Pulse Resp BP Pulse Ox 97.5 F 64 17 134/78 99 10/15/19 12:00 10/15/19 12:00 10/15/19 12:00 10/15/19 12:00 10/15/19 12:00 General: Alert, Oriented x3 HEENT: Atraumatic Neck: Supple Respiratory: Clear to auscultation bilaterally Cardiovascular: No edema, Normal S1 S2 Laboratory Data (last 24 hrs) 10/15/19 01:50: PT 16.3 H, INR 1.40, APTT 36.7 10/15/19 01:50: WBC 5.7, Hgb 13.9, Hct 41.2, Plt Count 185 10/15/19 01:50: Sodium 141, Potassium 3.8, BUN 13, Creatinine 1.20, Glucose 119 H, Magnesium 2.2, Total Bilirubin 0.4, AST 23, ALT 63, Alkaline Phosphatase 68 - Problems (1) Hemoptysis Current Visit: Yes Status: Acute Plan: Patient is 53 years of age admitted with sudden onset of hemoptysis. Chest x- rays clear he needs to be on chronic lifelong anticoagulation he now informs us that he has been taking Eliquis at home as confirmed by his INR, patient came by my office asking for Xarelto I have given a Xarelto packed that he has not been taking I have instructed him not to take does not reside L2 and returned it to my office continue using the Eliquis as chest x-rays okay has not coughed up any blood since admission patient's hemoglobin is stable discharge after 24 hr off observation labs reviewed
--- NOTE | 2019-10-15 13:53 | P.PN ---
Subjective Date of Service: 10/15/19 Primary Care Provider: [facility]; Pulmonary-Dr. Henriquez Chief Complaint: Hemoptysis Subjective: Improving (No further hemoptysis) Physical Examination - Vital Signs Temperature: 97.5 F Blood Pressure: 134/78 Pulse: 64 Respirations: 17 Pulse Ox (%): 99 - Physical Exam General: Alert, In no apparent distress, Oriented x3, Cooperative HEENT: Atraumatic Neck: Supple Respiratory: Clear to auscultation bilaterally, Normal air movement Cardiovascular: Normal pulses, Regular rate/rhythm Gastrointestinal: Normal bowel sounds, Soft and benign, Non-distended - Studies Laboratory Data (last 24 hrs) 10/15/19 01:50: PT 16.3 H, INR 1.40, APTT 36.7 10/15/19 01:50: WBC 5.7, Hgb 13.9, Hct 41.2, Plt Count 185 10/15/19 01:50: Sodium 141, Potassium 3.8, BUN 13, Creatinine 1.20, Glucose 119 H, Magnesium 2.2, Total Bilirubin 0.4, AST 23, ALT 63, Alkaline Phosphatase 68 Assessment & Plan Discharge Plan: Home Plan to discharge in: 24 Hours Physician Review Additional Text: Assessment: Hemoptysis on chronic anti coagulation therapy History of recurrent pulmonary embolism on chronic anti coagulation therapy Hypertension Hyperlipidemia Depression with anxiety COPD Diabetes mellitus type 2 Chronic pain Poor compliance with follow up and medication Plan: Hemoptysis on chronic anti coagulation therapy: Recent discharge summary reviewed. Patient is a poor historian. Patient with history of noncompliance. Patient was sent home with Xarelto this past Monday. He went to go see the mandrel maker on Monday. He was given a sample pack of the Xarelto to continue. Patient reports that he is not taking Xarelto but taking Eliquis which was given to him by the [facility] on Monday. No further come offices noted. Will monitor the patient. Will continue to monitor hemoglobin and hematocrit. If stable patient can be discharged within the next 24 hr. Patient will continue with Eliquis 5 mg 1 pill twice daily. Patient will need to return Xarelto medication to pulmonology to make sure he does not take both medications. I will turn the service over to the hospitalist team tomorrow. I will go the plan of care. Anticipate discharge tomorrow. History of recurrent pulmonary embolism on chronic anti coagulation therapy: Continue with above recommendations. Hypertension: Continue with medication. Hyperlipidemia: Continue with medication. Depression with anxiety: Continue with medication. COPD: Continue with medication. Diabetes mellitus type 2: Will monitor Accu-Cheks. Will provide sliding scale. Chronic pain: Continue with medication. Poor compliance with follow up and medication: Compliance with medication and follow up address in detail. [facility] Time Spent Managing Pts Care (In Minutes): 55
[2019-10-15] MEDS: CLOBETASOL 0.05 % CREAM 15GM TOP SCH (16:54)
[2019-10-15] MEDS: HYDROCODONE/APAP 5/325 MG TAB PO PRN ×2 (17:19→23:04)
[2019-10-15] MEDS: ROSUVASTATIN 10 MG TAB PO SCH (21:53)
[2019-10-15] MEDS: APIXABAN 5 MG TABLET PO SCH (21:53)
[2019-10-15] MEDS: NIACIN 500 MG SR TAB PO SCH (21:54)
[2019-10-16] MEDS: ALBUTEROL 2.5 MG/3 ML NEB SOL NEB SCH ×4 (02:00→20:00)
[2019-10-16] MEDS: IPRATROPIUM BROM 0.5MG/2.5ML NEB SCH ×4 (02:00→20:00)
[2019-10-16 06:05] LABS: Absolute Lymphocytes (CBC) 1.7 K/uL (0.7-4.9); Basophils % 0.6 % (0-1.3); Hematocrit 39.5 % (39.6-49.0); Lymphocytes % 31.6 % (15.3-44.8); MPV 11.2 fL (7.6-11.3); RBC Red Blood Cell Count 4.52 M/uL (4.33-5.43)
[2019-10-16] MEDS: HYDROCODONE/APAP 5/325 MG TAB PO PRN ×3 (06:14→21:44)
[2019-10-16] MEDS: METOPROLOL XL 50 MG TAB PO SCH (06:15)
[2019-10-16 06:20] LABS: Albumin 3.3 g/dL (3.4-5.0); Bilirubin Total 0.5 mg/dL (0.2-1.0); Potassium 4.3 mmol/L (3.5-5.1); Protein, Total 6.9 g/dL (6.4-8.2)
[2019-10-16 06:21] LABS: Protime INR 1.27
[2019-10-16] MEDS: INSULIN -REGULAR HUMAN 50 UNIT/0.5 ML ML SQ SCH ×4 (07:30→21:46)
[2019-10-16 08:32] LABS: Blood Morphology Comment NOT SEEN (NOT SEEN); Platelet Estimate ADEQ
[2019-10-16] MEDS: CITALOPRAM 10 MG TABLET PO SCH (08:42)
[2019-10-16] MEDS: FUROSEMIDE 20 MG TABLET PO SCH (08:43)
[2019-10-16] MEDS: AMLODIPINE 10 MG TAB PO SCH (08:43)
[2019-10-16] MEDS: APIXABAN 5 MG TABLET PO SCH ×2 (08:43→21:45)
[2019-10-16] MEDS: PANTOPRAZOLE 40MG TABLET PO SCH (08:43)
[2019-10-16] MEDS: VITAMIN D 1000 UNIT TAB PO SCH (08:45)
[2019-10-16] MEDS: CLOBETASOL 0.05 % CREAM 15GM TOP SCH (08:46)
--- NOTE | 2019-10-16 16:07 | P.PN ---
Subjective Date of Service: 10/16/19 Primary Care Provider: [facility]; Pulmonary-Dr. Henriquez Chief Complaint: Hemoptysis No hemooptysis; however now with purulent sputum Physical Examination - Vital Signs Temperature: 97.9 F Blood Pressure: 118/64 Pulse: 70 Respirations: 17 Pulse Ox (%): 94 - Physical Exam General: Alert, In no apparent distress, Oriented x3 HEENT: Atraumatic, Normocephalic Neck: 2+ carotid pulse no bruit, JVD not distended Respiratory: Clear to auscultation bilaterally, Normal air movement Cardiovascular: No edema, Normal pulses Gastrointestinal: Normal bowel sounds, Hypoactive Musculoskeletal: No clubbing, No swelling Integumentary: No rashes Neurological: Normal gait, Normal speech Assessment And Plan Physician Review Additional Text: Assessment: Hemoptysis on chronic anti coagulation therapy History of recurrent pulmonary embolism on chronic anti coagulation therapy Hypertension Hyperlipidemia Depression with anxiety COPD Diabetes mellitus type 2 Chronic pain Poor compliance with follow up and medication Plan: Hemoptysis on chronic anti coagulation therapy: No hemoptysis. -Purulent sputum -Levofloxacin for now. -monitor for fever History of recurrent pulmonary embolism on chronic anti coagulation therapy: Continue with above recommendations. Hypertension: Continue with medication. Hyperlipidemia: Continue with medication. Depression with anxiety: Continue with medication. COPD: Continue with medication. Diabetes mellitus type 2: Will monitor Accu-Cheks. Will provide sliding scale. Chronic pain: Continue with medication. Poor compliance with follow up and medication: Compliance with medication and follow up address in detail. Recommend a follow-up with his PCP at the [facility].
[2019-10-16] MEDS ORDERED: Levofloxacin500mg IV 500 MG/100 ML BAG IV SCH (17:00)
[2019-10-16] MEDS: CYCLOBENZAPRINE 10 MG TAB PO PRN (21:45)
[2019-10-16] MEDS: NIACIN 500 MG SR TAB PO SCH (21:46)
[2019-10-16] MEDS: ROSUVASTATIN 10 MG TAB PO SCH (21:46)
[2019-10-17] MEDS: IPRATROPIUM BROM 0.5MG/2.5ML NEB SCH ×2 (01:10→08:12)
[2019-10-17] MEDS: ALBUTEROL 2.5 MG/3 ML NEB SOL NEB SCH ×2 (01:10→08:12)
[2019-10-17] MEDS: METOPROLOL XL 50 MG TAB PO SCH (06:00)
[2019-10-17] MEDS: INSULIN -REGULAR HUMAN 50 UNIT/0.5 ML ML SQ SCH ×2 (07:30→11:30)
[2019-10-17] MEDS: AMLODIPINE 10 MG TAB PO SCH (08:34)
[2019-10-17] MEDS: HYDROCODONE/APAP 5/325 MG TAB PO PRN (08:34)
[2019-10-17] MEDS: APIXABAN 5 MG TABLET PO SCH (08:34)
[2019-10-17] MEDS: CITALOPRAM 10 MG TABLET PO SCH (08:34)
[2019-10-17] MEDS: VITAMIN D 1000 UNIT TAB PO SCH (08:34)
[2019-10-17] MEDS: FUROSEMIDE 20 MG TABLET PO SCH (08:35)
[2019-10-17] MEDS: PANTOPRAZOLE 40MG TABLET PO SCH (08:35)
[2019-10-17] MEDS: CLOBETASOL 0.05 % CREAM 15GM TOP SCH (08:37)
[2019-10-17] MEDS ORDERED: AZITHROMYCIN IV 500 MG in NA CHLORIDE 0.9% 250 ML IVPB SCH (09:00)
[2019-10-17 10:10] VITALS: O2SAT 98
[2019-10-17 10:15] LABS: Basophils % 0.6 % (0-1.3); Lymphocytes % 19.8 % (15.3-44.8); MPV 10.6 fL (7.6-11.3); RBC Red Blood Cell Count 4.23 M/uL (4.33-5.43)
[2019-10-17 10:33] LABS: Bilirubin Total 0.5 mg/dL (0.2-1.0); Protein, Total 6.5 g/dL (6.4-8.2)
--- NOTE | 2019-10-17 11:27 | P.DS ---
Admission Date: 10/15/19 Discharge Date: 10/17/19 Primary Care Provider: [facility]; Pulmonary-Dr. Henriquez Disposition: ROUTINE DISCHARGE Discharge Condition: GOOD Reason for Admission: Hemoptysis Consultations: Ophthalmic Pathologist Brief History of Present Illness: "Mr. Castro is 53yoAAM w/ pmhx of DM, HTN, PTSD, asthma, obesity, recurrent PEs on chronic AC ( was on coumadin x 10yrs then switched to eliquis for 1 yr now), who presented to ED w/ hemotysis. He reports being seen for CP 3 weeks prior to admission, no PE noted at that time per pt and thus he was discharged. per notation patient ran out of eliquis x 3 mths and he reports having CHAMBERLAIN as well as CP similar to previous PE. 10/11 the [place] scheduled him for outpatient CT chest for PE r/o, and monday notified pt of +new PE w/ recommendation to present to the [facility]. he presented to [facility] and was confirmed/diagnosed w/ PE oin 10/12/19 presented to the ED, PE treatment and was to be discharged w/ xarelto and thus discharged on 10/14/19 with notation that he would be taking xarelto but the patient reports that he was discharged on his home eliquis dose and medication. it is unclear which AC pt is on as he states he is on eliquis. he currently returns w / hemoptysis that started overnight. reports chest pain w/ radiation to the back , reports CHAMBERLAIN - new onset" Hospital Course: Assessment: Hemoptysis on chronic anti coagulation therapy URI History of recurrent pulmonary embolism on chronic anti coagulation therapy Hypertension Hyperlipidemia Depression with anxiety COPD Diabetes mellitus type 2 Chronic pain Poor compliance with follow up and medication Patient was admitted for further evaluation. He had no episodes of hemoptysis nor hypoxia while inpatient. He however had purulent sputum and was initiated on antibiotics for upper respiratory infection. Patient was evaluated by his primary tank refinisher whom he follows outpatient. He was cleared for discharge , to continue Eliquis until outpatient evaluation by PCP and tank refinisher. He remained hemodynamically stable for discharge. Vital Signs/Physical Exam: Temp Pulse Resp BP Pulse Ox 97.5 F 77 14 112/74 97 10/17/19 08:00 10/17/19 08:00 10/17/19 09:34 10/17/19 08:00 10/17/19 09:34 General: Alert, In no apparent distress, Oriented x3 HEENT: Atraumatic, Normocephalic Neck: Supple Respiratory: Clear to auscultation bilaterally, Normal air movement Cardiovascular: No edema, Normal pulses, Regular rate/rhythm Gastrointestinal: Normal bowel sounds, Soft and benign, Non-distended Musculoskeletal: No clubbing, No swelling, No contractures Integumentary: No rashes, No breakdown Laboratory Data at Discharge: WBC 5.3 K/uL (4.3-10.9) 10/17/19 09:56 Hgb 12.4 g/dL (13.6-17.9) L 10/17/19 09:56 Hct 37.0 % (39.6-49.0) L 10/17/19 09:56 Plt Count 172 K/uL (152-406) 10/17/19 09:56 PT 14.8 SECONDS (9.5-12.5) H 10/16/19 05:41 INR 1.27 10/16/19 05:41 APTT 36.7 SECONDS (24.3-36.9) 10/15/19 01:50 Sodium 139 mmol/L (136-145) 10/17/19 09:56 Potassium 4.0 mmol/L (3.5-5.1) 10/17/19 09:56 BUN 12 mg/dL (7-18) 10/17/19 09:56 Creatinine 1.16 mg/dL (0.55-1.3) 10/17/19 09:56 Glucose 208 mg/dL (74-106) H 10/17/19 09:56 Magnesium 2.2 mg/dL (1.8-2.4) 10/15/19 06:52 Total Bilirubin 0.5 mg/dL (0.2-1.0) 10/17/19 09:56 AST 25 U/L (15-37) 10/17/19 09:56 ALT 61 U/L (12-78) 10/17/19 09:56 Alkaline Phosphatase 60 U/L (45-117) 10/17/19 09:56 Home Medications: Omeprazole [Prilosec] 20 mg PO DAILY 07/13/13 Clobetasol Propionate/Emoll [Clobetasol Emollient 0.05% Crm] 1 appl TP DAILY 05/20 Amlodipine Besylate 10 mg PO DAILY 09/30/19 Cetirizine HCl 10 mg PO DAILY PRN 09/30/19 Cholecalciferol (Vitamin D3) [Vitamin D3] 1,000 unit PO DAILY 09/30/19 Citalopram [Celexa*] 40 mg PO DAILY 09/30/19 Combivent 14.7gm 1 spray IH QIDP PRN 09/30/19 Cyclobenzaprine [Flexeril*] 10 mg PO TID PRN 09/30/19 Fluticasone [Flonase 50MCG Nasal [place]*] 2 sprays NS DAILY PRN 09/30/19 Hydrocodone 5/APAP 325 [[place] 5/325*] 1 tab PO QIDP PRN 09/30/19 Niacin 500 mg PO BEDTIME 09/30/19 Rosuvastatin [Crestor*] 40 mg PO BEDTIME 09/30/19 Vardenafil HCl 10 mg PO PRN PRN 09/30/19 Metoprolol Succinate [Toprol Xl*] 50 mg PO [id number] #30 tab 10/13/19 Apixaban [Eliquis *] 5 mg PO BID 10/15/19 Furosemide [Lasix*] 10 mg PO DAILY 10/15/19 levoFLOXacin [Levofloxacin] 500 mg PO DAILY #5 tablet 10/17/19 New Medications: levoFLOXacin [Levofloxacin] 500 mg PO DAILY #5 tablet Diet: Regular Activity: Ad ruperto Followup: Gerhard Henriquez MD [ACTIVE - CAN ADMIT] - 1 Week (call to schedule appointment) Unknown,U [Primary Care Provider] - 1 Week (call to schedule appointment)
[2019-10-17 12:17] VITALS: BP 115/68; TEMP 97.9
[2019-10-17 12:37] LABS: Platelet Estimate ADEQ
[2019-10-17 12:38] LABS: Blood Morphology Comment NOT SEEN (NOT SEEN)
== END 2019-10-17 13:20 | disposition home or self-care (01) ==
LOC: ER 01:24 → 4TH 04:31 → INTOOBSV 04:31
PROVIDERS: ADMIT Hospitalist; ATTEND Hospitalist
DX: R04.2 Hemoptysis (principal); J06.9 Acute upper respiratory infection, unspecified; E11.9 Type 2 diabetes mellitus without complications; J45.909 Unspecified asthma, uncomplicated; F43.10 Post-traumatic stress disorder, unspecified; E66.9 Obesity, unspecified; Z68.34 Body mass index [BMI] 34.0-34.9, adult; E78.5 Hyperlipidemia, unspecified; F41.8 Other specified anxiety disorders; J44.9 Chronic obstructive pulmonary disease, unspecified; G89.29 Other chronic pain; I10 Essential (primary) hypertension; Z91.14 Patient's other noncompliance with medication regimen; Z86.711 Personal history of pulmonary embolism; Z79.01 Long term (current) use of anticoagulants; Z86.73 Personal history of transient ischemic attack (TIA), and cerebral infarction without residual deficits; Z23 Encounter for immunization
CPT/HCPCS: 93005; 87070; 85025 ×4; 80048; 36415 ×3; 83735 ×2; 87205; 85610 ×3; 82947 ×10; 80076; 85730; 84443; 85018 ×2; 85014; 81003; 83036; 84484; 80053 ×3; 83880; 71045; 71046; 90471 ×2; 90670; 94640 ×8; 94760 ×6; 99285; Q2035; G0378 ×4

== ENCOUNTER 2020-06-21 21:07 | Emergency (ER) | payer OTHER ==
--- NOTE | 2020-06-21 23:29 | ER ---
Nurse's Notes [facility] Name: Nick Castro Age: 54 yrs Sex: Male : 1965 Arrival Date: 06/21/2020 Time: 21:12 Bed 17 Private MD: Diagnosis: Fall (on) (from) unspecified stairs and steps;Unspecified injury of head Presentation: 06/21 21:26 Chief complaint: Patient states: " I was carrying groceries in for my sister and I vc tripped going into the kitchen. I hit the door so hard I passed out, my family said for a good 3-4 minutes. I have a horrible head ache now. I think I hit my nose because it was bleeding pretty bad.". Care prior to arrival: None. Mechanism of Injury: Fall door, head first. Trauma event details: Injury occurred in the [facility], Injury occurred: sisters house. 21:26 Acuity: PARMJIT 2 vc 21:26 Method Of Arrival: Wheelchair vc 21:35 Coronavirus screen: At this time, the client does not indicate any symptoms associated mt2 with coronavirus-19. Ebola Screen: No symptoms or risks identified at this time. Initial Sepsis Screen: Does the patient meet any 2 criteria? No. Patient's initial sepsis screen is negative. Does the patient have a suspected source of infection? No. Patient's initial sepsis screen is negative. Risk Assessment: Do you want to hurt yourself or someone else? Patient reports no desire to harm self or others. Onset of symptoms was June 21, 2020. Trauma Activation: Stat Physician: ED Physician; Name: sybil; Notified At: ; Arrived At: Physician: General Surgeon; Name: ; Notified At: ; Arrived At: Physician: Radiology; Name: ; Notified At: ; Arrived At: Physician: Respiratory; Name: ; Notified At: ; Arrived At: Physician: Lab; Name: ; Notified At: ; Arrived At: Historical: - Allergies: 21:31 No Known Allergies; vc - Home Meds: :31 amlodipine 10 mg tab 1 tab once daily [Active]; aspirin 81 mg Oral chew 1 tab once vc daily [Active]; Eliquis 5 mg Oral tab 1 tab 2 times per day [Active]; atorvastatin 20 mg Oral tab 1 tab once daily [Active]; Bupropion Oral [Active]; carvedilol Oral [Active]; cetirizine 10 mg Oral tab 1 tab once daily [Active]; citalopram 40 mg tab 1 tab once daily [Active]; - PMHx: 21:31 AAA; Anxiety; CHF; Depression; Diabetes - NIDDM; Hernia; High Cholesterol; vc Hypertension; PE; PTSD; - Immunization history:: Adult Immunizations up to date. - Social history:: Smoking status: Patient denies any tobacco usage or history of. - Immunization history: Last tetanus immunization: - up to date. Screenin:36 Fall Risk Fall in past 12 months (25 points). Gait- Weak (10 pts.). mt2 21:39 Abuse screen: Denies threats or abuse. Nutritional screening: No deficits noted. mt2 Tuberculosis screening: No symptoms or risk factors identified. Fall risk At risk due to injury, prior history of falls. Primary Survey: 21:31 NO uncontrolled hemorrhage observed. A: The patient is alert. Airway: patent, No mt2 supplemental oxygen in use on arrival. Breathing/Chest: Respiratory pattern: regular, Respiratory effort: spontaneous, unlabored, Breath sounds: clear, Chest inspection: symmetrical rise and fall of the chest. Circulation: Cardiac rhythm: sinus rhythm. Disability Alert. Exposure/Environment: There is no evidence of uncontrolled external bleeding. Reassessment Airway Airway. 22:31 Reassessment Airway Airway Patent Breathing/Chest Respiratory pattern Regular mt2 Circulation Heart rhythm Sinus rhythm Disability Alert. Secondary Survey: 21:35 HEENT: Head Other HEMATOMA ON LEFT FOREHEAD. Gastrointestinal: No deficits noted. : mt2 No deficits noted. Musculoskeletal: No deficits noted. Injury Description: hematoma to left side of forehead. Assessment: 21:15 Reassessment: Patient and/or family updated on plan of care and expected duration. Pain mt2 level reassessed. Patient is alert, oriented x 3, equal unlabored respirations, skin warm/dry/pink. General: Appears uncomfortable, Behavior is cooperative. Pain: Complains of pain in face Pain currently is 10 out of 10 on a pain scale. Quality of pain is described as aching. Neuro: Reports dizziness, since fall. 22:33 Reassessment: Patient and/or family updated on plan of care and expected duration. Pain mt2 level reassessed. Patient is alert, oriented x 3, equal unlabored respirations, skin warm/dry/pink. General: Appears uncomfortable, Behavior is cooperative. Pain: Complains of pain in face Pain currently is 8 out of 10 on a pain scale. Quality of pain is described as aching. 23:52 Reassessment: Patient and/or family updated on plan of care and expected duration. Pain mt2 level reassessed. Patient is alert, oriented x 3, equal unlabored respirations, skin warm/dry/pink. Patient states symptoms have improved. General: Appears comfortable, Behavior is cooperative. Pain: Denies pain. Vital Signs: 22:33 BP 127 / 105; Pulse 88; Resp 16; Pulse Ox 95% on R/A; Pain 8/10; mt2 23:56 BP 127 / 91; Pulse 77; Resp 16; Pulse Ox 98% ; Pain 0/10; mt2 [place] Coma Score: 21:36 Eye Response: spontaneous(4). Verbal Response: oriented(5). Motor Response: obeys mt2 commands(6). Total: 15. Trauma Score (Adult): 21:36 Eye Response: spontaneous(1); Verbal Response: oriented(1); Motor Response: obeys mt2 commands(2); Systolic BP: > 89 mm Hg(4); Respiratory Rate: 10 to 29 per min(4); [place] Score: 15; Trauma Score: 12 ED Course: 21:12 Patient arrived in ED. ag3 21:21 Nancy Cardenas FNP-C [facility]. snw 21:21 Raúl Roberto MD is Attending Physician. snw 21:29 Triage completed. vc 21:36 Allergy band placed. Bed in low position. Call light in reach. Side rails up X2. mt2 21:36 Arm band placed on right wrist. mt2 21:40 Inserted saline lock: 20 gauge in right antecubital area, using aseptic technique. mt2 Blood collected. Patient maintains SpO2 saturation greater than 95% on room air. 21:41 Thermoregulation: warm blanket given to patient. mt2 21:48 Delmi Taylor, AJ is Primary Nurse. mt2 22:10 CT Head C Spine In Process Unspecified. EDMS 23:53 No provider procedures requiring assistance completed. IV discontinued, intact, mt2 bleeding controlled, No redness/swelling at site. Pressure dressing applied. Administered Medications: 23:23 Drug: [place] 5 mg-325 mg 1 tabs Route: PO; mt2 23:52 Follow up: Response: No adverse reaction; Pain is decreased mt2 Intake: 21:36 PO: 0ml; Total: 0ml. mt2 Outcome: 23:29 Discharge ordered by MD. krishnan 23:53 Discharged to home via wheelchair. mt2 23:53 Condition: good 23:53 Discharge instructions given to patient, family, Instructed on discharge instructions, follow up and referral plans. medication usage, Demonstrated understanding of instructions, follow-up care, medications. 23:55 Patient's length of stay was not longer than 2 hours. mt2 23:56 Patient left the ED. mt2 Signatures: Dispatcher [employer] EDMS Nancy Cardenas FNP-C FNP-Natalie Simon 3 Nahomi Dillard RN RN vc Delmi Taylor RN RN mt2
--- NOTE | 2020-06-21 23:29 | EDPHYS ---
Physician Documentation [facility] Name: Nick Castro Age: 54 yrs Sex: Male : 1965 Arrival Date: 06/21/2020 Time: 21:12 Bed 17 Private MD: ED Physician Raúl Roberto HPI: 06/21 21:31 This 54 yrs old Black Male presents to ER via Wheelchair with complaints of Fall snw Injury, Dizziness. 21:31 Details of fall: The patient fell from an upright position, while walking. Onset: The snw symptoms/episode began/occurred suddenly, just prior to arrival. Associated injuries: The patient sustained injury to the head, laceration, 1 cm(s), of the inner aspect of left eyebrow. Severity of symptoms: At their worst the symptoms were moderate, severe, in the emergency department the symptoms have resolved. The patient has experienced a previous episode. It is unknown whether or not the patient has recently seen a physician. pt tripped while carrying groceries and fell striking head against the doorframe, + LOC x 4 min. Pt takes Eliquis. Historical: - Allergies: 21:31 No Known Allergies; vc - Home Meds: 21:31 amlodipine 10 mg tab 1 tab once daily [Active]; aspirin 81 mg Oral chew 1 tab once vc daily [Active]; Eliquis 5 mg Oral tab 1 tab 2 times per day [Active]; atorvastatin 20 mg Oral tab 1 tab once daily [Active]; Bupropion Oral [Active]; carvedilol Oral [Active]; cetirizine 10 mg Oral tab 1 tab once daily [Active]; citalopram 40 mg tab 1 tab once daily [Active]; - PMHx: 21:31 AAA; Anxiety; CHF; Depression; Diabetes - NIDDM; Hernia; High Cholesterol; vc Hypertension; PE; PTSD; - Immunization history:: Adult Immunizations up to date. - Social history:: Smoking status: Patient denies any tobacco usage or history of. - Immunization history: Last tetanus immunization: - up to date. ROS: 21:29 Constitutional: Negative for fever, chills, and weight loss, Eyes: Negative for injury, snw pain, redness, and discharge, ENT: Negative for injury, pain, and discharge, + nose bleed post striking head on doorframe Neck: Negative for injury, pain, and swelling, Cardiovascular: Negative for chest pain, palpitations, and edema, Respiratory: Negative for shortness of breath, cough, wheezing, and pleuritic chest pain, Abdomen/GI: Negative for abdominal pain, nausea, vomiting, diarrhea, and constipation, Back: Negative for injury and pain, : Negative for injury, bleeding, discharge, and swelling, MS/Extremity: Negative for injury and deformity, Skin: Negative for injury, rash, and discoloration. 21:29 Neuro: Positive for headache, loss of consciousness. Exam: 21:29 Constitutional: This is a well developed, well nourished patient who is awake, alert, snw and in no acute distress. Eyes: Pupils equal round and reactive to light, extra-ocular motions intact. Lids and lashes normal. Conjunctiva and sclera are non-icteric and not injected. Cornea within normal limits. Periorbital areas with no swelling, redness, or edema. ENT: Nares patent. No nasal discharge, no septal abnormalities noted. Tympanic membranes are normal and external auditory canals are clear. Oropharynx with no redness, swelling, or masses, exudates, or evidence of obstruction, uvula midline. Mucous membranes moist. Neck: Trachea midline, no thyromegaly or masses palpated, and no cervical lymphadenopathy. Supple, full range of motion without nuchal rigidity, or vertebral point tenderness. No Meningismus. Chest/axilla: Normal chest wall appearance and motion. Nontender with no deformity. No lesions are appreciated. Cardiovascular: Regular rate and rhythm with a normal S1 and S2. No gallops, murmurs, or rubs. Normal PMI, no JVD. No pulse deficits. Respiratory: Lungs have equal breath sounds bilaterally, clear to auscultation and percussion. No rales, rhonchi or wheezes noted. No increased work of breathing, no retractions or nasal flaring. Abdomen/GI: Soft, non-tender, with normal bowel sounds. No distension or tympany. No guarding or rebound. No evidence of tenderness throughout. Back: No spinal tenderness. No costovertebral tenderness. Full range of motion. Skin: Warm, dry with normal turgor. Normal color with no rashes, no lesions, and no evidence of cellulitis. MS/ Extremity: Pulses equal, no cyanosis. Neurovascular intact. Full, normal range of motion. Neuro: Awake and alert, GCS 15, oriented to person, place, time, and situation. Cranial nerves II-XII grossly intact. Motor strength 5/5 in all extremities. Sensory grossly intact. Cerebellar exam normal. Normal gait. Psych: Awake, alert, with orientation to person, place and time. Behavior, mood, and affect are within normal limits. 21:29 Head/face: Noted is a laceration(s), that is linear, 1 cm(s), of the inner aspect of left eyebrow. Vital Signs: 22:33 BP 127 / 105; Pulse 88; Resp 16; Pulse Ox 95% on R/A; Pain 8/10; mt2 23:56 BP 127 / 91; Pulse 77; Resp 16; Pulse Ox 98% ; Pain 0/10; mt2 [place] Coma Score: 21:36 Eye Response: spontaneous(4). Verbal Response: oriented(5). Motor Response: obeys mt2 commands(6). Total: 15. Trauma Score (Adult): 21:36 Eye Response: spontaneous(1); Verbal Response: oriented(1); Motor Response: obeys mt2 commands(2); Systolic BP: > 89 mm Hg(4); Respiratory Rate: 10 to 29 per min(4); [place] Score: 15; Trauma Score: 12 MDM: 21:21 Patient medically screened. snw 21:31 Data reviewed: vital signs, nurses notes. Data interpreted: Pulse oximetry: on room air snw is 100 %. Interpretation: normal. Counseling: I had a detailed discussion with the patient and/or guardian regarding: the historical points, exam findings, and any diagnostic results supporting the discharge/admit diagnosis, radiology results. 06/21 21:28 Order name: CT Head C Spine snw 06/21 23:11 Order name: Dermabond; Complete Time: 23:23 snw Administered Medications: 23:23 Drug: [place] 5 mg-325 mg 1 tabs Route: PO; mt2 23:52 Follow up: Response: No adverse reaction; Pain is decreased mt2 Disposition: 06/22 06:39 Co-signature as Attending Physician, Raúl Roberto MD I agree with the assessment and tw4 plan of care. Disposition: 06/21/20 23:29 Discharged to Home. Impression: Fall (on) (from) unspecified stairs and steps, Unspecified injury of head. - Condition is Stable. - Discharge Instructions: Tissue Adhesive Wound Care, Head Injury, Adult, Fall Prevention in the Home, Facial Laceration. - Medication Reconciliation Form, Thank You Letter, Antibiotic Education, Prescription Opioid Use form. - Follow up: Emergency Department; When: As needed; Reason: Worsening of condition. Follow up: Private Physician; When: 2 - 3 days; Reason: Recheck today's complaints, Continuance of care, Re-evaluation by your physician. Signatures: Dispatcher [employer] EDMS Nancy Cardenas, SANDWICH MACHINE OPERATOR-C SANDWICH MACHINE OPERATOR-Csnw Raúl Roberto MD MD tw4 Nahomi Dillard RN RN Delmi Estrada RN RN mt2 Corrections: (The following items were deleted from the chart) 06/21 23:56 23:29 06/21/2020 23:29 Discharged to Home. Impression: Fall (on) (from) unspecified mt2 stairs and steps; Unspecified injury of head. Condition is Stable. Forms are Medication Reconciliation Form, Thank You Letter, Antibiotic Education, Prescription Opioid Use. Follow up: Emergency Department; When: As needed; Reason: Worsening of condition. Follow up: Private Physician; When: 2 - 3 days; Reason: Recheck today's complaints, Continuance of care, Re-evaluation by your physician. snw
[2020-06-21] MEDS ORDERED: DERMABOND SKIN ADHESIVE TOP ONE (23:31)
[2020-06-21] MEDS ORDERED: HYDROCODONE/APAP 5/325 MG TAB ONE (23:31)
[2020-06-22 00:17] VITALS: BP 127/91; O2SAT 98
--- NOTE | 2020-06-22 11:54 | RAD REPORT ---
EXAM DESCRIPTION: CT - Head C Spine Mpr Wo Con - 06/22/2020 4:18 am CLINICAL HISTORY: Pain; Smash injury TECHNIQUE: Contiguous axial CT images obtained through the brain without IV contrast. Coronal and sa gittal reformatted images were provided. This exam was performed according to our departmental dose-optimization program, which includes autom ated exposure control, adjustment of the mA and/or kV according to patient size and/or use of iterati ve reconstruction technique. COMPARISON: 09/26/2017 FINDINGS: Brain: No significant white matter changes. No focal mass effect. [place]-white matter differ entiation is within normal limits. No hemorrhage. Ventricles: No ventriculomegaly or midline shift. Extra-axial spaces: No extra-axial collection or hemorrhage. Paranasal sinuses and mastoid air cells: Well-aerated Vessels: Unremarkable Bones: Unremarkable Soft tissues: Unremarkable IMPRESSION: No acute intracranial or extra-axial abnormality. EXAM DESCRIPTION: CT C-SPINE WITHOUT IV CONTRAST CLINICAL HISTORY: Pain; Smash injury TECHNIQUE: Contiguous axial CT images obtained through the cervical spine without IV contrast. Coron al and sagittal reformatted images also provided. This exam was performed according to our departmental dose-optimization program, which includes autom ated exposure control, adjustment of the mA and/or kV according to patient size and/or use of iterati ve reconstruction technique. COMPARISON: 09/05/2018 FINDINGS: Vertebra: No acute fracture or subluxation. Disc spaces: Mild to moderate multilevel degenerative changes most pronounced at C4-C5 and C5-C6, wit hout significant interval change. No critical canal stenosis. Foramina appear patent. Prevertebral soft tissues: Unremarkable Lung apices: Clear IMPRESSION: No acute injury. Electronically signed by: Fabi Mills MD 06/21/2020 10:20 PM CDT Due to temporary technical issues with the PACS/Fluency reporting system, reports are being signed by the in house radiologist without review as a courtesy to ensure prompt reporting. The interpreting r adiologist is fully responsible for the content of the report.
== END 2020-06-21 23:56 | disposition home or self-care (01) ==
LOC: ER 21:07
DX: S00.83XA Contusion of other part of head, initial encounter (principal); W01.198A Fall on same level from slipping, tripping and stumbling with subsequent striking against other object, initial encounter; Y93.01 Activity, walking, marching and hiking; Y92.89 Other specified places as the place of occurrence of the external cause; I10 Essential (primary) hypertension; E11.9 Type 2 diabetes mellitus without complications; Z79.01 Long term (current) use of anticoagulants; Z79.82 Long term (current) use of aspirin; F34.1 Dysthymic disorder
CPT/HCPCS: 70450; 72125; 99284; G0390

== ENCOUNTER 2020-06-22 15:25 | Emergency (ER) | payer OTHER ==
[2020-06-22 16:06] LABS: Absolute Lymphocytes (CBC) 4.3 K/uL (0.7-4.9); Basophils % 0.5 % (0-1.3); Lymphocytes % 42.5 % (15.3-44.8); MPV 12.1 fL (7.6-11.3); RBC Red Blood Cell Count 4.52 M/uL (4.33-5.43)
[2020-06-22 16:14] LABS: Protime INR 1.04
[2020-06-22 16:33] LABS: Potassium 5.5 mmol/L (3.5-5.1)
--- NOTE | 2020-06-22 17:01 | EDPHYS ---
Physician Documentation [facility] Name: Nick Castro Age: 54 yrs Sex: Male : 1965 Arrival Date: 06/22/2020 Time: 15:29 Bed 2 Private MD: ED Physician Phillip Arias HPI: 06/22 22:16 This 54 yrs old Black Male presents to ER via EMS with complaints of CPR. jr8 22:16 Preceding the arrest, the patient collapsed. The arrest occurred at home. Pre-hospital jr8 course: The arrest was not witnessed by others. Bystanders at the scene performed CPR. EMS care prior to arrival: initiation of ACLS, peripheral IV, IO. oxygen, iGel. ACLS details: Initial rhythm was asystole. The presenting rhythm is asystole. Airway: iGEL, Medications given by EMS prior to arrival - Epinephrine IV x 2 doses, Response to therapy: continued arrest. The patient has not experienced similar symptoms in the past. The patient has been recently seen at the [facility] Emergency Department, yesterday. EMS stated that they were called out for unresponsive republican. CPR in progress. Family had stated that they heard patient fall in his bedroom. Went to go check on him after a few minutes. Stated that he was unresponsive and had irregular respirations. EMS called at that time and was instructed to start CPR. EMS stated that patient had been seen in ED for fall yesterday and discharged home. Had been complaining of dizziness on/off throughout the day . Historical: - Allergies: 15:50 No Known Allergies; iw - Home Meds: 15:49 Eliquis 5 mg Oral tab 1 tab 2 times per day [Active]; cetirizine 10 mg Oral tab 1 tab iw once daily [Active]; citalopram 40 mg tab 1 tab once daily [Active]; carvedilol Oral [Active]; atorvastatin 20 mg Oral tab 1 tab once daily [Active]; Bupropion Oral [Active]; aspirin 81 mg Oral chew 1 tab once daily [Active]; amlodipine 10 mg tab 1 tab once daily [Active]; - PMHx: 15:49 AAA; Anxiety; CHF; Depression; Hernia; High Cholesterol; Diabetes - NIDDM; iw Hypertension; PE; PTSD; ROS: 22:16 Unable to obtain ROS due to CPR. jr8 Exam: 22:16 Head/Face: Normocephalic, atraumatic. jr8 22:16 Eyes: Periorbital structures: appear normal, Pupils: are fixed and dilated. 22:16 Cardiovascular: Rate: actual rate is 0 bpm, Rhythm: asystole, Pulses: not palpable. 22:16 Respiratory: Breath sounds: rales, that are mild, are located in both bases, Respiratory rate: 12 bpm via BVM assisted ventilations 22:16 Abdomen/GI: Inspection: obese Palpation: soft. 22:16 Skin: Appearance: Color: normal in color, Temperature: cool. Vital Signs: 15:30 Resp 22 A; iw [place] Coma Score: 22:16 Eye Response: none(1). Verbal Response: none(1). Motor Response: none(1). Modifying jr8 Factors: Intubated. Total: 3. Procedures: 22:16 Intubation: Intubated orally using # 3 Camille blade with 7.5 mm ETT. was successful jr8 on first attempt. Ventilated with Ambu bag. Tube secured with ETT s[place] at center of mouth measured 22 cm at lip. Placement verified by CO2 detector with (+) color change, auscultating bilateral breath sounds. CPR: Initial patient assessment: unresponsive, pupils fixed \T\ dilated, Ambu ventilation, pulses absent w/ compressions, The presenting cardiac rhythm is asystole. respirations assisted with BVM, Compressions: began prior to arrival. Meds given: See Meds list. despite ED evaluation and treatment, the patient . Family notified. CPR was stopped at 15:37. MDM: 15:40 Patient medically screened. jr8 16:58 Data reviewed: vital signs, nurses notes, lab test result(s). jr8 22:16 ED course: Discussed with family that despite what ACLS initiated in field via EMS and jr8 continued upon arrival at hospital. That we could not successfully resuscitate patient. The [employer] Specialist was called and ME was recommended at that time. Patient will be sent to [facility] for further evaluation and cause of . 06/22 15:34 Order name: CBC with Diff rn 06/22 15:34 Order name: Basic Metabolic Panel rn 06/22 15:34 Order name: Protime (+inr) rn 06/22 15:34 Order name: Ptt, Activated rn 06/22 16:00 Order name: Glucose, Ancillary Testing EDOH 06/22 16:19 Order name: CBC Smear Scan EDOH 06/22 15:34 Order name: IV Start; Complete Time: 15:57 rn Administered Medications: 15:28 Drug: EPINEPHrine 0.1mg/mL 1:10,000 1 mg Route: IVP; Site: right antecubital; iw 16:00 Follow up: Response: No adverse reaction sv 15:30 Drug: Calcium Chloride 1 grams Route: IVP; Site: left antecubital; iw 16:00 Follow up: Response: No adverse reaction sv 15:30 Drug: Sodium Bicarbonate 1 amp Route: IVP; Site: left antecubital; iw 16:00 Follow up: Response: No adverse reaction sv 15:30 Drug: NS 0.9% 1000 ml Route: IV; Rate: 1000 ml; Site: right antecubital; iw 15:37 Follow up: Response: No adverse reaction; IV Status: Completed infusion; IV Intake: sv 500ml 15:32 Drug: EPINEPHrine 0.1mg/mL 1:10,000 1 mg Route: IVP; Site: left antecubital; iw 16:00 Follow up: Response: No adverse reaction sv 15:35 Drug: EPINEPHrine 0.1mg/mL 1:10,000 1 mg Route: IVP; Site: left antecubital; iw 16:00 Follow up: Response: No adverse reaction sv 15:36 Drug: Sodium Bicarbonate 1 amp Route: IVP; Site: left antecubital; iw 16:00 Follow up: Response: No adverse reaction sv Point of Care Testing: Blood Glucose: 15:31 Blood Glucose: High (>450 mg/dL); iw Ranges: Critical Glucose Levels:Adult <50 mg/dl or >400 mg/dl <40 mg/dl or >180 mg/dl Disposition: 16:58 . jr8 17:35 Co-signature as Attending Physician, Phillip Arias MD. rn Disposition: Patient pronounced on 06/22/20 15:37 by Edu Renner. Impression: Cardiac arrest. - Released to Direct Support Worker. Signatures: Dispatcher [employer] [facility] Ammy Vogel RN RN Anisha Stewart RN RN Phillip Arias MD MD rn Roszak, Josh, BARRY REDDY jr8 Corrections: (The following items were deleted from the chart) 17:10 17:00 06/22/2020 17:00 Patient pronounced on 06/22/2020 at 15:37 by Edu Renner. sv Impression: Cardiac arrest. Released to Direct Support Worker. jr8
--- NOTE | 2020-06-22 17:01 | ER ---
Nurse's Notes [facility] Name: Nick Castro Age: 54 yrs Sex: Male : 1965 Arrival Date: 06/22/2020 Time: 15:29 Bed 2 Private MD: Diagnosis: Cardiac arrest Presentation: 06/22 15:24 Chief complaint: EMS states: family heard pt fall at approx 1 hour [employer] (1424), went to iw check on him 5-10 minutes later, pt was found to be unresponsive and foaming at mouth, family started CPR, EMS arrived to scene, pt asystole on monitor, difficult intubation, pt arrived to ED at 1524, on thumper, LMA in place, bagged via BVM, asystole on monitor, EMS gave two rounds of epi [employer]IVE. 15:24 Care prior to arrival: Assisted ventilation, Oral airway placed, CPR via thumper iw performed by bystander and is still in progress Medication(s) given: epi X 2 IV initiated. in the right tibia. Compressions began prior to arrival. 15:24 Coronavirus screen: At this time, the client does not indicate any symptoms associated iw with coronavirus-19. Ebola Screen: Patient negative for fever greater than or equal to 101.5 degrees Fahrenheit, and additional compatible Ebola Virus Disease symptoms Patient denies exposure to infectious person. Patient denies travel to an Ebola-affected area in the 21 days before illness onset. No symptoms or risks identified at this time. Initial Sepsis Screen: Does the patient meet any 2 criteria? No. Patient's initial sepsis screen is negative. Does the patient have a suspected source of infection? No. Patient's initial sepsis screen is negative. Risk Assessment: Do you want to hurt yourself or someone else? Patient reports no desire to harm self or others. Onset of symptoms was June 22, 2020. 15:24 Note EMS states pt was seen here last night for a fall/head injury, had CT done which iw was negative, d/c home, pt currently on eliquis, no injury or hematoma noted to head or face , pupils are equal, round, non pinpoint. 15:43 Method Of Arrival: EMS: [facility] iw 15:43 Acuity: PARMJIT 1 iw Historical: - Allergies: 15:50 No Known Allergies; iw - Home Meds: 15:49 Eliquis 5 mg Oral tab 1 tab 2 times per day [Active]; cetirizine 10 mg Oral tab 1 tab iw once daily [Active]; citalopram 40 mg tab 1 tab once daily [Active]; carvedilol Oral [Active]; atorvastatin 20 mg Oral tab 1 tab once daily [Active]; Bupropion Oral [Active]; aspirin 81 mg Oral chew 1 tab once daily [Active]; amlodipine 10 mg tab 1 tab once daily [Active]; - PMHx: 15:49 AAA; Anxiety; CHF; Depression; Hernia; High Cholesterol; Diabetes - NIDDM; iw Hypertension; PE; PTSD; Screenin:30 Abuse screen: Denies threats or abuse. Nutritional screening: No deficits noted. iw Tuberculosis screening: No symptoms or risk factors identified. Assessment: 15:25 General: Appears obese, well developed, Behavior is unresponsive. Neuro: Level of iw Consciousness is unresponsive. Neuro: Pupils are pupils are equal and round, non reactive to light. Cardiovascular: Patient's skin is warm and dry. Rhythm is asystole. Respiratory: Airway LMA in place Trachea midline. GI: Abdomen is round obese, Abd is soft X 4 quads. 15:30 CPR assessment: unresponsive, no respiratory effort, intubated, Ambu ventilation. iw Cardiac rhythm is asystole. 15:32 CPR assessment: unresponsive, no respiratory effort, intubated, Ambu ventilation. iw Cardiac rhythm is asystole. 15:34 CPR assessment: unresponsive, no respiratory effort, intubated, Ambu ventilation. iw Cardiac rhythm is asystole. 15:37 CPR assessment: unresponsive, no respiratory effort, intubated, Ambu ventilation. iw Cardiac rhythm is asystole. 15:50 Reassessment: PD at the bedside. sv 16:21 Reassessment: [facility] called and spoke with Monica Cruz, see paperwork for more sv information. Case # [id number]. 16:36 Reassessment: spoke with sister Jessie Tom, advised her that we are waiting on iw manager hydraulic to see pt, we are not allowing anyone to see pt's body at this time,phone number is [phone]. 20:05 Reassessment: Bao Collins has called back to close the case due to pt family sg refusing donation. Vital Signs: 15:30 Resp 22 A; iw Purlear Coma Score: 22:16 Eye Response: none(1). Verbal Response: none(1). Motor Response: none(1). Modifying jr8 Factors: Intubated. Total: 3. ED Course: 15:27 Inserted saline lock: 18 gauge in right antecubital area, using aseptic technique. IV iw inserted by AJ Gimenez. 15:28 Intubation: 7.5 Fr. ETT placed orally. Performed by Edu REDDY Successful on first iw attempt. Placement verified by auscultating bilateral breath sounds, Ventilated with Ambu bag. 15:28 Inserted saline lock: 20 gauge in left antecubital area, using aseptic technique. iw ,using aseptic technique. IV inserted by AJ Brown. 15:29 Patient arrived in ED. iw 15:30 Arm band placed on. iw 15:30 Patient has correct armband on for positive identification. iw 15:40 Edu Renner PA is PHCP. jr8 15:40 Phillip Arias MD is Attending Physician. jr8 15:43 Triage completed. iw 15:46 Anisha Stewart RN is Primary Nurse. iw 17:00 Edu Renner PA is Pronouncing Provider. jr8 17:08 No provider procedures requiring assistance completed. intact. sv Administered Medications: 15:28 Drug: EPINEPHrine 0.1mg/mL 1:10,000 1 mg Route: IVP; Site: right antecubital; iw 16:00 Follow up: Response: No adverse reaction sv 15:30 Drug: Calcium Chloride 1 grams Route: IVP; Site: left antecubital; iw 16:00 Follow up: Response: No adverse reaction sv 15:30 Drug: Sodium Bicarbonate 1 amp Route: IVP; Site: left antecubital; iw 16:00 Follow up: Response: No adverse reaction sv 15:30 Drug: NS 0.9% 1000 ml Route: IV; Rate: 1000 ml; Site: right antecubital; iw 15:37 Follow up: Response: No adverse reaction; IV Status: Completed infusion; IV Intake: sv 500ml 15:32 Drug: EPINEPHrine 0.1mg/mL 1:10,000 1 mg Route: IVP; Site: left antecubital; iw 16:00 Follow up: Response: No adverse reaction sv 15:35 Drug: EPINEPHrine 0.1mg/mL 1:10,000 1 mg Route: IVP; Site: left antecubital; iw 16:00 Follow up: Response: No adverse reaction sv 15:36 Drug: Sodium Bicarbonate 1 amp Route: IVP; Site: left antecubital; iw 16:00 Follow up: Response: No adverse reaction sv Point of Care Testing: Blood Glucose: 15:31 Blood Glucose: High (>450 mg/dL); iw Ranges: Intake: 15:37 IV: 500ml; Total: 500ml. sv Outcome: 15:37 Patient : Time of 15:37 Pronounced by Edu REDDY iw 17:10 Patient left the ED. sv Signatures: Ammy Vogel RN RN Kristopher Riggins RN RN Anisha Stewart RN RN Edu Renner PA PA jr8 Corrections: (The following items were deleted from the chart) 17:23 16:21 Reassessment: [facility] called and spoke with Monica Cruz, see paperwork for sv more information. sv
[2020-06-22 17:30] LABS: Anisocytosis 1+; Blood Morphology Comment NOTED (NOT SEEN); Platelet Estimate DECR; Poikilocytosis 1+; Urine White Blood Cell Casts OK
== END 2020-06-22 17:10 ==
LOC: ER 15:25
PROC: 0BH17EZ Insertion of Endotracheal Airway into Trachea, Via Natural or Artificial Opening (ICD-10-PCS; principal; 2020-06-22)
PROC: 5A1935Z Respiratory Ventilation, Less than 24 Consecutive Hours (ICD-10-PCS; 2020-06-22)
DX: I46.9 Cardiac arrest, cause unspecified (principal); I10 Essential (primary) hypertension; E11.9 Type 2 diabetes mellitus without complications; E78.00 Pure hypercholesterolemia, unspecified; I50.9 Heart failure, unspecified; W19.XXXA Unspecified fall, initial encounter; Y93.9 Activity, unspecified; Y92.9 Unspecified place or not applicable; Z79.82 Long term (current) use of aspirin; Z79.01 Long term (current) use of anticoagulants
CPT/HCPCS: 31500; 36415; 80048; 82947; 85025; 85610; 85730; 92950; 99285